=== PATIENT | male | born 1930 | race Caucasian/White ===

== ENCOUNTER → 2016-10-26 | Outpatient (CLI) | payer MEDICARE, OTHER ==
[~2016-10-26] MED LIST: AMPI500C9 PO; ASP325T PO; ASPI-586 PO; ASPI-999 PO; CARV12.5 PO; CARV3.122 PO; CARV6.252 PO; CEFU500T PO; CIPR-225 PO; CPR500T PO; DOXY100C42 PO; DOXY100T2 PO; ENAL5TAB PO; ENLP2.5T PO; ENLP5T PO; FINA5TAB6 PO; FNST5T PO; FURO80TA3 PO; IPRA3AMP INH; POTA10CA43 PO; POTA10TA14 PO; POTA10TA6 PO; PRED10TA22 PO; SILV400C23 TP; SILVER ALGINATE TP; TAMS0.4C2 PO; TOLTA4 PO
--- OUTSIDE RECORDS SUMMARY | 2016-10-26 16:50 | XMS REPORT | Continuity of Care Document ---
Author Author [facility] Organization [facility] Address Unknown Phone Unavailable Care Team Providers Care Cushion Padder Name Role Phone PCP Unavailable Source Comments Some departments are not documenting in the electronic medical record. If you do not see the information that you expected, contact Release of Information in the Health Information Management department at [phone] for further assistance in locating additional records.[facility] Active Allergies and Adverse Reactions Not on [...]
[2016-10-26 17:02] LABS: BASOPHILS % (AUTO) 0 % (0-10); EOSINOPHILS # (AUTO) 0.1 10^3/uL (0.0-0.3); EOSINOPHILS % (AUTO) 1 % (0-10); LYMPHOCYTES % (AUTO) 25 % (12-44); MEAN CORPUSCULAR HEMOGLOBIN 31 PG (25-34); MEAN CORPUSCULAR HGB CONC 32 G/DL (32-36); MEAN CORPUSCULAR VOLUME 97 FL (80-99); MEAN PLATELET VOLUME 9.5 FL (7.4-10.4); MONOCYTES # (AUTO) 0.7 X 10^3 (0.0-1.0); MONOCYTES % (AUTO) 8 % (0-12); NEUTROPHILS # (AUTO) 5.3 X 10^3 (1.8-7.8); NEUTROPHILS % (AUTO) 65 % (42-75); PLATELET COUNT 213 10^3/uL (130-400); RED BLOOD COUNT 4.05 10^6/uL (4.35-5.85); WHITE BLOOD COUNT 8.1 10^3/uL (4.3-11.0)
[2016-10-26 17:26] LABS: ALBUMIN 3.6 G/DL (3.2-4.5); BILIRUBIN,TOTAL 0.5 MG/DL (0.1-1.0); CREATININE SERUM 1.64 MG/DL (0.60-1.30)
[2016-10-26 17:27] LABS: POTASSIUM 5.2 MMOL/L (3.6-5.0)
== END ==
LOC: LAB 16:46
PROVIDERS: ATTEND Surgery
DX: I70.203 Unspecified atherosclerosis of native arteries of extremities, bilateral legs (principal); L97.222 Non-pressure chronic ulcer of left calf with fat layer exposed
CPT/HCPCS: 36415; 80053; 85025; 87070; 87075; 87077; 87186; 87205

== ENCOUNTER 2016-11-09 12:58 | Outpatient (RCR) | payer MEDICARE, OTHER ==
--- OUTSIDE RECORDS SUMMARY | 2016-10-26 14:29 | XMS REPORT | Continuity of Care Document ---
Author Author [facility] Organization [facility] Address Unknown Phone Unavailable Care Team Providers Care Edger Hand Name Role Phone PCP Unavailable Source Comments Some departments are not documenting in the electronic medical record. If you do not see the information that you expected, contact Release of Information in the Health Information Management department at [phone] for further assistance in locating additional records.[facility] Active Allergies and Adverse Reactions Not on File Current Medications Not on file Active Problems Not on file Social History Tobacco Use Types Packs/Day Years Used Date Never Assessed Plan of Care Health Maintenance Due Date Last Done Comments Physical (Comprehensive) 1936 Exam Pertussis Vaccine 1940 Tetanus Vaccine 1946 Shingles Vaccine 1989 Prevnar/Pneumovax (#1) 1994 Influenza Vaccine 04/14/2015 Results from Last 3 Months Not on file
[~2016-11-09 12:58] MED LIST changes: -AMPI500C9 PO; -DOXY100C42 PO; -DOXY100T2 PO; -ENAL5TAB PO; -IPRA3AMP INH; -POTA10TA14 PO; -PRED10TA22 PO; -SILV400C23 TP; -SILVER ALGINATE TP; -TOLTA4 PO
[2016-11-14] MEDS ORDERED: SILV400C23 TP (13:43)
[2016-11-14] MEDS ORDERED: ASPI-586 PO (13:43)
[2016-11-14] MEDS ORDERED: TOLTA4 PO ×2 (13:43→16:29)
[2016-11-14] MEDS ORDERED: AMPI500C9 PO (13:43)
[2016-11-14] MEDS ORDERED: DOXY100T2 PO (13:43)
[2016-11-14] MEDS ORDERED: DOXY100C42 PO (16:19)
[2016-11-14] MEDS ORDERED: ENAL5TAB PO (16:19)
[2016-11-14] MEDS ORDERED: FURO80TA3 PO (16:19)
[2016-11-14] MEDS ORDERED: TAMS0.4C2 PO (16:19)
[2016-11-14] MEDS ORDERED: POTA10TA14 PO (16:19)
[2016-11-14] MEDS ORDERED: FINA5TAB6 PO (16:19)
[2016-11-14] MEDS ORDERED: SILVER ALGINATE TP (16:29)
[2016-11-23] MEDS ORDERED: PRED10TA22 PO (11:11)
[2016-11-23] MEDS ORDERED: IPRA3AMP INH (11:11)
== END 2016-12-01 16:00 | disposition home or self-care (01) ==
LOC: WOUNDCARE 12:58
PROVIDERS: ATTEND Surgery
DX: L97.222 Non-pressure chronic ulcer of left calf with fat layer exposed (principal); I87.312 Chronic venous hypertension (idiopathic) with ulcer of left lower extremity; I87.321 Chronic venous hypertension (idiopathic) with inflammation of right lower extremity; I89.0 Lymphedema, not elsewhere classified; I70.203 Unspecified atherosclerosis of native arteries of extremities, bilateral legs
CPT/HCPCS: 11042

== ENCOUNTER 2016-11-14 12:43 | Inpatient (IN) | payer MEDICARE, OTHER ==
[~2016-11-14] VITALS: Ht 167.6 cm; Wt 118.5 kg
[2016-11-14] MEDS ORDERED: RT-ALBUTEROL/IPRATROPIUM 3 ML (DUONEB) VIAL INH ONE (13:30)
[2016-11-14 13:38] LABS: BASOPHILS % (AUTO) 0 % (0-10); EOSINOPHILS % (AUTO) 0 % (0-10); LYMPHOCYTES # (AUTO) 1.2 X 10^3 (1.0-4.0); LYMPHOCYTES % (AUTO) 13 % (12-44); MEAN CORPUSCULAR HEMOGLOBIN 30 PG (25-34); MEAN CORPUSCULAR HGB CONC 31 G/DL (32-36); MEAN CORPUSCULAR VOLUME 95 FL (80-99); MEAN PLATELET VOLUME 11.1 FL (7.4-10.4); MONOCYTES # (AUTO) 0.8 X 10^3 (0.0-1.0); MONOCYTES % (AUTO) 8 % (0-12); NEUTROPHILS # (AUTO) 7.2 X 10^3 (1.8-7.8); NEUTROPHILS % (AUTO) 78 % (42-75); PLATELET COUNT 167 10^3/uL (130-400); RED BLOOD COUNT 4.56 10^6/uL (4.35-5.85); RED CELL DISTRIBUTION WIDTH 16.7 % (10.0-14.5); WHITE BLOOD COUNT 9.2 10^3/uL (4.3-11.0)
--- NOTE | 2016-11-14 13:38 | ED Cough/URI ---
General Chief Complaint: Respiratory Problems Stated Complaint: CONGESTION//SHORTNESS OF BREATH Source: patient, family Exam Limitations: no limitations History of Present Illness Time seen by provider: 13:32 Initial Comments This 86-year-old white male presents with a two-week history of progressive cough. The patient has been treating a chronic wound to the left leg between the knee and ankle and has been to the wound care clinic for his medications. Approximately 10 days ago the patient was seen at [facility] and asked to continue with the doxycycline which was being used to treat his leg wound. The patient had a brief fever at the start of his illness but has not had a fever noted in the last week. 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 Patient had a C2 fracture years ago requiring him to sleep in an upright position leading to chronic edema of his lower extremities. Allergies and Home Medications Allergies Coded Allergies: No Known Drug Allergies (Unverified , 04/24/10) Home Medications Ampicillin Trihydrate 500 Mg Capsule, 500 MG PO DAILY, (Reported) Aspirin 81 Mg Tablet.dr, 81 MG PO DAILY, (Reported) Ciprofloxacin HCl 500 Mg Tablet, 500 MG PO BID, #10 Prescribed by: GUY HOWARD on 05/06/16 0951 Doxycycline Hyclate 100 Mg Tablet, 100 MG PO BID, (Reported) Enalapril Maleate 5 Mg Tab, 5 MG PO DAILY, (Reported) Furosemide 80 Mg Tablet, 80 MG PO DAILY, (Reported) Potassium Chloride 10 Meq Tablet.er, 10 MEQ PO DAILY, (Reported) Silver Sulfadiazine 400 Gm Cream..g., 400 GM TP, (Reported) Tolterodine Tartrate 4 Mg Cap, 4 MG PO DAILY, (Reported) Constitutional: No chills, fever (2 weeks ago at the onset of his present illness.) EENTM: No ear pain Respiratory: cough, short of breath Cardiovascular: No chest pain, edema, No palpitations, No syncope Gastrointestinal: No abdominal pain, No diarrhea, No nausea, No vomiting Genitourinary: No decreased output, No dysuria, No frequency Musculoskeletal: No back pain, No joint swelling Skin: No change in color, No rash Psychiatric/Neurological: No Symptoms Reported, Denies Anxiety, Denies Depressed Immunological/Allergic: no symptoms reported Past Kqxhtxx-Gshuoi-Eccywf Hx Patient Social History Former Smoker/When Quit: Mar 31, 1987 Recent Foreign Travel: No Contact w/Someone Who Travel: No Recent Hopitalizations: Yes (broken neck in 2005) Immunizations Up To Date Date of Pneumonia Vaccine: Mar 14, 2015 Surgeries HX Surgeries: Yes (NECK SURGERY, HERNIA SX, ) Surgeries: Orthopedic Respiratory Hx Respiratory Disorders: No Cardiovascular Hx Cardiac Disorders: Yes ([employer] pacemaker) Cardiac Disorders: Chronic Edema/Swelling, Hypertension, Peripheral Vascular Neurological Hx Neurological Disorders: No Reproductive System Hx Reproductive Disorders: No Genitourinary Hx Genitourinary Disorders: No Genitourinary Disorders: Benign Prostatic Hyperpl, Prostate Problems Gastrointestinal Hx Gastrointestinal Disorders: No Musculoskeletal Hx Musculoskeletal Disorders: Yes (broken neck and broken wrist) Musculoskeletal Disorders: Fractures Endocrine Hx Endocrine Disorders: No HEENT HX ENT Disorders: Yes HEENT Disorders: Cataract Hearing Impairment: Hard of Hearing Cancer Hx Cancer: No Psychosocial Hx Psychiatric Problems: No Integumentary HX Skin/Integumentary Disorder: No (HX OF CELLULITIS) Blood Transfusions Hx Blood Disorders: No Reviewed Nursing Assessment Reviewed/Agree w Nursing PMH: Yes Family Medical History Family Medial History: Arthritis 19 MOTHER Colon cancer G8 BROTHER G8 SISTER Myocardial infarction G8 BROTHER Physical Exam Vital Signs Vital Sign - Last 12Hours 11/14/16 13:30 Temp 97.7 Pulse 81 Resp 20 B/P (MAP) 125/105 Pulse Ox 97 O2 Delivery OxyMask O2 Flow Rate 5.00 Capillary Refill : General Appearance: no apparent distress, obese Eyes: Bilateral Eye Normal Inspection HEENT: normal ENT inspection Neck: other (patient demonstrates a stiff neck with limited range of motion which the patient's son relates this is normal.) Respiratory: decreased breath sounds Cardiovascular: regular rate, rhythm Gastrointestinal: normal bowel sounds, non tender, soft Extremities: pedal edema (3+ bilateral pedal edema is present. There are 2 open wounds over the left leg at the juncture of the middle and distal thirds of the leg between the knee and ankle. These are each approximately 2 inches in diameter the wound is clean without significant purulent drainage and extends into the subcutaneous tissue but not into the ER muscles.) Neurologic/Psychiatric: alert, normal mood/affect, motor weakness (patient has bilateral lower extremity weakness. No paralysis.) Skin: other (wounds left leg as noted above) Focused Exam Lactic Acid Level Laboratory Tests Test 11/14/16 13:21 Lactic Acid Level 1.19 MMOL/L (0.50-2.00) Progress/Results/Core Measures Results/Orders Lab Results Laboratory Tests Test 11/14/16 13:21 11/14/16 13:31 Range/Units White Blood Count 9.2 4.3-11.0 10^3/uL Red Blood Count 4.56 4.35-5.85 10^6/uL Hemoglobin 13.6 13.3-17.7 G/DL Hematocrit 44 40-54 % Mean Corpuscular Volume 95 80-99 FL Mean Corpuscular Hemoglobin 30 25-34 PG Mean Corpuscular Hemoglobin Concent 31 L 32-36 G/DL Red Cell Distribution Width 16.7 H 10.0-14.5 % Platelet Count 167 130-400 10^3/uL Mean Platelet Volume 11.1 H 7.4-10.4 FL Neutrophils (%) (Auto) 78 H 42-75 % Lymphocytes (%) (Auto) 13 12-44 % Monocytes (%) (Auto) 8 0-12 % Eosinophils (%) (Auto) 0 0-10 % Basophils (%) (Auto) 0 0-10 % Neutrophils # (Auto) 7.2 1.8-7.8 X 10^3 Lymphocytes # (Auto) 1.2 1.0-4.0 X 10^3 Monocytes # (Auto) 0.8 0.0-1.0 X 10^3 Eosinophils # (Auto) 0.0 0.0-0.3 10^3/uL Basophils # (Auto) 0.0 0.0-0.1 10^3/uL Lactic Acid Level 1.19 0.50-2.00 MMOL/L B-Type Natriuretic Peptide 1483.7 H <100.0 PG/ML Sodium Level 147 H 135-145 MMOL/L Potassium Level 3.7 3.6-5.0 MMOL/L Chloride Level 105 98-107 MMOL/L Carbon Dioxide Level 33 H 21-32 MMOL/L Anion Gap 9 5-14 MMOL/L Blood Urea Nitrogen 28 H 7-18 MG/DL Creatinine 1.51 H 0.60-1.30 MG/DL Estimat Glomerular Filtration Rate 44 BUN/Creatinine Ratio 19 Glucose Level 126 H 70-105 MG/DL Calcium Level 8.3 L 8.5-10.1 MG/DL Total Bilirubin 1.0 0.1-1.0 MG/DL Aspartate Amino Transf (AST/SGOT) 26 5-34 U/L Alanine Aminotransferase (ALT/SGPT) 19 0-55 U/L Alkaline Phosphatase 79 40-136 U/L Troponin I < 0.30 <0.30 NG/ML Total Protein 6.5 6.4-8.2 G/DL Albumin 3.5 3.2-4.5 G/DL My Orders Orders - PRASHANTH HENRY MD Albuterol/Ipra Inhalation Soln (Duoneb I (11/14/16 13:30) Svn Sm Volume Nebulizer Rt-Rfs (11/14/16 13:28) Chest Pa/Lat (2 View) (11/14/16 13:31) Cbc With Automated Diff (11/14/16 13:31) Comprehensive Metabolic Panel (11/14/16 13:31) BNP (11/14/16 13:31) Ekg Tracing (11/14/16 13:31) Troponin I (11/14/16 13:31) Sputum Culture (11/14/16 14:50) Furosemide Injection (Lasix Injection) (11/14/16 15:00) Blood Culture (11/14/16 15:13) Lactic Acid Analyzer (11/14/16 15:13) Piperacillin Sodium/Tazobactam (Zosyn Vi (11/14/16 15:30) Medications Given in ED Current Medications Medications Dose Ordered Sig/Vibha Route Start Time Stop Time Status Last Admin Dose Admin Albuterol/ Ipratropium 3 ml ONCE ONCE INH 11/14/16 13:30 11/14/16 13:31 DC 11/14/16 13:41 3 ML Furosemide 40 mg ONCE ONCE IVP 11/14/16 15:00 11/14/16 15:01 DC 11/14/16 15:25 40 MG Piperacillin Sod/ Tazobactam Sod 4.5 gm/Sodium Chloride 100 ml @ 200 mls/hr ONCE ONCE IV 11/14/16 15:30 11/14/16 15:59 11/14/16 15:41 200 MLS/HR Vital Signs/I&O Vital Sign - Last 12Hours 11/14/16 11/14/16 13:30 13:41 Temp 97.7 Pulse 81 Resp 20 B/P (MAP) 125/105 Pulse Ox 97 95 O2 Delivery OxyMask O2 Flow Rate 5.00 6.00 Progress Note : Time: 15:11 Progress Note The patient's chest x-ray demonstrated congestive heart failure. I did not see a definite infiltrate on the radiograph. Dr. Stuart was kind enough to admit the patient through her prescribed. I move the patient's been receiving doxycycline and amoxicillin for both the wound to the left leg as well as a possible pneumonia that was diagnosed at [facility] week or so ago. After telephone consultation with Dr. Stuart the patient was treated with 4.5 g of Zosyn IV and 40 mg Lasix IV. Cardiology and pulmonology were both consulted. Departure Communication Time/Spoke to Admitting Phy: 16:[address] Stuart. Impression Impression: Primary Impression: CHF (congestive heart failure) Qualified Codes: I50.9 - Heart failure, unspecified Additional Impression: Pneumonia Qualified Codes: J18.9 - Pneumonia, unspecified organism Disposition: ADMITTED INPATIENT Condition: Improved Departure-Patient Inst. Referrals: INDU MAK MD (PCP/Family) Primary Care Physician PRASHANTH HENRY MD Nov 14, 2016 13:37
[2016-11-14] MEDS ORDERED: AMPI500C9 PO (13:43)
[2016-11-14] MEDS ORDERED: TOLTA4 PO ×2 (13:43→16:29)
[2016-11-14] MEDS ORDERED: DOXY100T2 PO (13:43)
[2016-11-14] MEDS ORDERED: ASPI-586 PO (13:43)
[2016-11-14] MEDS ORDERED: SILV400C23 TP (13:43)
[2016-11-14 13:51] LABS: ALANINE AMINOTRANSFERASE 19 U/L (0-55); ALBUMIN 3.5 G/DL (3.2-4.5); ANION GAP 9 MMOL/L (5-14); ASPARTATE AMINO TRANSFERASE 26 U/L (5-34); BLOOD UREA NITROGEN 28 MG/DL (7-18); BUN/CREATININE RATIO 19; CALCIUM 8.3 MG/DL (8.5-10.1); CARBON DIOXIDE 33 MMOL/L (21-32); CHLORIDE 105 MMOL/L (98-107); CREATININE SERUM 1.51 MG/DL (0.60-1.30); GFR ESTIMATED 44; GLUCOSE 126 MG/DL (70-105); POTASSIUM 3.7 MMOL/L (3.6-5.0); SODIUM 147 MMOL/L (135-145); TOTAL PROTEIN 6.5 G/DL (6.4-8.2)
[2016-11-14 13:57] LABS: TROPONIN I < 0.30 NG/ML (<0.30)
--- NOTE | 2016-11-14 14:45 | Diagnostic Imaging Report ---
INDICATION: Cough, congestion, shortness of air. Compared 08/11/2016. FINDINGS: Pacemaker device overlies the left chest. The heart enlarged but unchanged from prior. There are perihilar infiltrates and some vascular congestion having improved. Elevation of the left hemidiaphragm unchanged. IMPRESSION: Slight improvements when compared to the prior in terms of cardiomegaly, vascular congestion, and likely perihilar edema. Elevated left diaphragm chronic. Findings suggest recurrence of features of failure or hypervolemia but of less magnitude than prior. Dictated by: Dictated on workstation # [id number]
[2016-11-14] MEDS ORDERED: FUROSEMIDE 40 MG/4 ML INJ (LASIX) IVP ONE (15:00)
[2016-11-14] MEDS ORDERED: cefTRIAXone INJECTION 2,000 MG in NS (IVPB) 50 ML IV ONE (15:15)
[2016-11-14] MEDS ORDERED: PIPERACILLIN SODIUM/TAZOBACTAM 4.5 GM in NS (IVPB) 100 ML IV ONE (15:30)
[2016-11-14] MEDS ORDERED: FINA5TAB6 PO (16:19)
[2016-11-14] MEDS ORDERED: POTA10TA14 PO (16:19)
[2016-11-14] MEDS ORDERED: ENAL5TAB PO (16:19)
[2016-11-14] MEDS ORDERED: TAMS0.4C2 PO (16:19)
[2016-11-14] MEDS ORDERED: DOXY100C42 PO (16:19)
[2016-11-14] MEDS ORDERED: FURO80TA3 PO (16:19)
[2016-11-14] MEDS ORDERED: SILVER ALGINATE TP (16:29)
[2016-11-14 17:29] VITALS: BP 114/71
[2016-11-14] MEDS ORDERED: CATHETER FLUSH 10 ML SYR IV PRN (17:30)
[2016-11-14 20:00] VITALS: BP 120/60
--- NOTE | 2016-11-14 20:05 | Progress Note-Standard ---
Standard Progress Note Progress Notes/Assess & Plan Progress/Assessment & Plan 11/14/16:I have been asked to see the gentleman regarding ulcers over his legs, more pronounced over his left side. Currently, he is being managed for pneumonia and congestive heart failure. On examination, he has changes of chronic venous stasis with superficial ulceration involving the left lower extremity. It is reasonable to continue current wound management and observe him. Final Diagnosis leg ulcers LEXIS JONES MD Nov 14, 2016 8:05 pm
[2016-11-14] MEDS: PIPERACILLIN/TAZOBACTAM 4.5 GM/NS 100 ML IVPB IV SCH ×2 (21:23)
[2016-11-14] MEDS: CATHETER FLUSH 10 ML SYR IV SCH (22:00)
[2016-11-14 23:46] VITALS: BP 112/65
[2016-11-15] VITALS (29 sets, daily range): BP systolic 89–119; BP diastolic 50–88
[2016-11-15 04:03] LABS: ABG BASE EXCESS 6.2 MMOL/L (-2.5-2.5); ABG HCO3 36 MMOL/L (23-27); ABG OXYGEN SATURATION 97 % (94-100); ABG PO2 112 MMHG (79-93)
[2016-11-15 04:08] LABS: ABG PCO2 123 MMHG (35-45); ABG PH 7.09 (7.37-7.43); ALLENS TEST YES-POS
[2016-11-15 04:09] LABS: PATIENT TEMP 96.9
[2016-11-15 04:19] LABS: BASOPHILS % (AUTO) 0 % (0-10); EOSINOPHILS % (AUTO) 0 % (0-10); LYMPHOCYTES # (AUTO) 1.1 X 10^3 (1.0-4.0); LYMPHOCYTES % (AUTO) 10 % (12-44); MEAN CORPUSCULAR HEMOGLOBIN 30 PG (25-34); MEAN CORPUSCULAR HGB CONC 29 G/DL (32-36); MEAN CORPUSCULAR VOLUME 103 FL (80-99); MEAN PLATELET VOLUME 10.9 FL (7.4-10.4); MONOCYTES % (AUTO) 9 % (0-12); NEUTROPHILS # (AUTO) 8.6 X 10^3 (1.8-7.8); NEUTROPHILS % (AUTO) 81 % (42-75); PLATELET COUNT 143 10^3/uL (130-400); RED BLOOD COUNT 4.64 10^6/uL (4.35-5.85); RED CELL DISTRIBUTION WIDTH 17.3 % (10.0-14.5); WHITE BLOOD COUNT 10.7 10^3/uL (4.3-11.0)
[2016-11-15 04:26] LABS: INR 1.1 (0.8-1.4); PROTHROMBIN TIME PATIENT 13.7 SEC (12.2-14.7)
[2016-11-15 04:39] LABS: ALBUMIN 3.6 G/DL (3.2-4.5); BILIRUBIN,TOTAL 0.6 MG/DL (0.1-1.0); CALCIUM 8.3 MG/DL (8.5-10.1); CREATININE SERUM 2.11 MG/DL (0.60-1.30); MAGNESIUM 2.2 MG/DL (1.8-2.4); TOTAL PROTEIN 6.9 G/DL (6.4-8.2)
[2016-11-15 05:02] LABS: ABG HCO3 34 MMOL/L (23-27); ABG PO2 66 MMHG (79-93); ABG TCO2 36.3 MMOL/L (21.0-31.0)
[2016-11-15 05:03] LABS: ABG OXYGEN SATURATION 92 % (94-100); ALLENS TEST YES-POS
[2016-11-15 05:04] LABS: ABG PCO2 84 MMHG (35-45); ABG PH 7.22 (7.37-7.43)
[2016-11-15] MEDS: PIPERACILLIN/TAZOBACTAM 4.5 GM/NS 100 ML IVPB IV SCH ×6 (05:46→22:34)
[2016-11-15] MEDS: CATHETER FLUSH 10 ML SYR IV SCH ×3 (05:46→22:53)
[2016-11-15] MEDS ORDERED: FUROSEMIDE 40 MG/4 ML INJ (LASIX) IV SCH (06:00)
--- NOTE | 2016-11-15 07:59 | Diagnostic Imaging Report ---
INDICATION: Unresponsive patient EXAMINATION: Noncontrast brain CT is performed There is no previous studies for comparison. There are diffuse atrophic changes. There are low-density changes in the deep white matter compatible with chronic ischemic change. 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 There is no acute hemorrhage or mass effect or midline shift. Calvarial windows are unremarkable. 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 No acute hemorrhage or acute intracranial finding. Dictated by: Dictated on workstation # [id number]
--- NOTE | 2016-11-15 08:24 | Diagnostic Imaging Report ---
INDICATION: Pneumonia Frontal chest obtained at 4:47 hours a.m. and compared to 11/14/16. There is cardiomegaly. There is central vascular congestion with some bibasilar infiltrate left greater than right. The left-sided infiltrate has increased compared to the prior study. There is central vascular congestion without abi edema. IMPRESSION: Cardiomegaly and central vascular congestion. Bibasilar infiltrates left greater than right with increasing left basilar infiltrate compared to the prior study. There is no pneumothorax. Dictated by: Dictated on workstation # [id number]
--- NOTE | 2016-11-15 08:27 | Pulmonary Consultation ---
History of Present Illness History of Present Illness Date of Consultation 11/15/16 08:22 Date of Admission History of Present Illness 86yo with hx of chronic wound to left leg presented to ED secondary to progressive cough. Pt has been on doxycycline as out patient. Allergies and Home Medications Allergies Coded Allergies: No Known Drug Allergies (Unverified , 11/14/16) Home Medications Ampicillin Trihydrate 500 Mg Capsule, 500 MG PO TID, (Reported) FILLED 11/01/16 #42 FOR A 14 DAY THERAPY Aspirin 81 Mg Tablet.dr, 81 MG PO DAILY, (Reported) Doxycycline Monohydrate 100 Mg Capsule, 100 MG PO BID, (Reported) FILLED 11/01/16 #28 FOR A 14 DAY THERAPY Enalapril Maleate 5 Mg Tablet, 5 MG PO DAILY, (Reported) Furosemide 80 Mg Tablet, 80 MG PO DAILY, (Reported) Potassium Chloride 10 Meq Tab.er.prt, 10 MEQ PO DAILY, (Reported) Tolterodine Tartrate 4 Mg Cap, 4 MG PO DAILY, (Reported) [Silver Alginate] , TP DAILY, (Reported) Past Fgnvdfj-Abtugv-Gubeix Hx Patient Social History Alcohol Use: Denies Use Recreational Drug Use: No Smoking Status: Former Smoker Type Used: Cigarettes Former Smoker/When Quit: Mar 31, 1987 Recent Foreign Travel: No Contact w/Someone Who Travel: No Recent Infectious Disease Expo: No Recent Hopitalizations: Yes (broken neck in 2004) Physical Abuse Screen: No Sexual Abuse: No Immunizations Up To Date Date of Pneumonia Vaccine: Mar 14, 2015 Seasonal Allergies Seasonal Allergies: No Surgeries HX Surgeries: Yes (NECK SURGERY, HERNIA SX, ) Surgeries: Orthopedic, Pacemaker Respiratory Hx Respiratory Disorders: No Respiratory Disorders: Pneumonia Cardiovascular Hx Cardiac Disorders: Yes ([employer] pacemaker) Cardiac Disorders: Chronic Edema/Swelling, Hypertension, Peripheral Vascular Neurological Hx Neurological Disorders: No Reproductive System Hx Reproductive Disorders: No Genitourinary Hx Genitourinary Disorders: No Genitourinary Disorders: Benign Prostatic Hyperpl, Prostate Problems Gastrointestinal Hx Gastrointestinal Disorders: No Musculoskeletal Hx Musculoskeletal Disorders: Yes (broken neck and broken wrist) Musculoskeletal Disorders: Fractures Endocrine Hx Endocrine Disorders: No HEENT HX ENT Disorders: Yes HEENT Disorders: Cataract Hearing Impairment: Hard of Hearing Cancer Hx Cancer: No Psychosocial Hx Psychiatric Problems: No Integumentary HX Skin/Integumentary Disorder: No (HX OF CELLULITIS) Skin/Integumentary Disorders: Recent Skin Changes Blood Transfusions Hx Blood Disorders: No Reviewed Nursing Assessment Reviewed/Agree w Nursing PMH: Yes Family Medical History Family Medial History: Arthritis 19 MOTHER Colon cancer G8 BROTHER G8 SISTER Myocardial infarction G8 BROTHER Exam Exam Vital Signs Date Time Temp Pulse Resp B/P (MAP) Pulse Ox O2 Delivery O2 Flow Rate FiO2 11/15/16 06:00 80 17 107/63 96 NIV/Bilevel 30.00 11/15/16 05:15 110 36 91 30.00 11/15/16 05:00 90 17 104/88 88 NIV/Bilevel 30.00 11/15/16 04:46 97.1 80 20 119/65 97 NIV/Bilevel 30.00 11/14/16 23:46 96.3 86 24 112/65 98 OxyMask 4.00 11/14/16 21:00 4.00 11/14/16 20:00 97.1 81 20 120/60 97 OxyMask 4.00 11/14/16 18:29 94 4.00 11/14/16 17:29 96.1 85 18 114/71 94 OxyMask 4.00 11/14/16 16:00 97.7 80 20 93 4.00 11/14/16 13:41 95 6.00 11/14/16 13:30 97.7 81 20 125/105 97 OxyMask 5.00 I & O 11/15/16 07:00 Intake Total 100 ml Output Total 0 ml Balance 100 ml Capillary Refill: Less Than 3 Seconds Gastrointestinal: normal bowel sounds, non tender, soft Results Lab Laboratory Tests 11/14/16 13:21 11/14/16 13:31 11/15/16 04:05 Assessment/Plan Assessment/Plan -Acute respiratory failure -requiring BiPAP -family is ok for short term ventilation only -Repeat ABG in 2hrs Morbid obesity Clinical Quality Measures DVT/VTE Risk/Contraindication: Risk Factor Score Per Nursin RFS Level Per Nursing on Admit: 4+=Very High BRAXTON SILVA DO Nov 15, 2016 08:27
--- NOTE | 2016-11-15 11:10 | Consultation-Cardiology ---
HPI-Cardiology Cardiology Consultation: Date of Consultation 11/15/16 Date of Admission 11-14-16 Attending Physician Latoya Stuart DO Admitting Physician José Manuel Tatum MD Consulting Physician Starr Martinez MD HPI: Chief Complaint: CHF Respiratory failure Mr. Mercedes is an 86 year old male admitted to 4th floor on 11-14-16 with increasing shortness of breath and cough over the course of the last 2 weeks. He is currently lethargic and on continuous Bi-pap. His son is at the bedside. He reports that his father was becoming increasingly confused during the day yesterday. He states they were having difficulty giving him his medications. His son states he was called by the nursing staff around 3:00 this morning d/t patient becoming unresponsive. Chart review shows patient was found unresponsive by nursing staff. He was transferred to ICU 8 and bi-pap was initiated. Son reports no previous c/o chest pain. He has chronic bilat LE cellulitis for which he has been following with wound care. Son reports he feels he has improved since bi-pap was started. Review of Systems-Cardiology Review of Systems Constitutional: As described under HPI Respiratory: As described under HPI Cardiovascular: As described under HPI Skin: other (Cellulitis bilat LE) Psychiatric/Neurological: As described under HPI Hematologic: No bleeding abnormalities Other comments ROS to the extent that it could be obtained via discussion with son and chart review is as per documentation above [id number]-Jrnjis Hx Patient Social History Alcohol Use: Denies Use Recreational Drug Use: No Smoking Status: Former Smoker Former smoker/When Quit: Mar 31, 1987 Type Used: Cigarettes Recent Foreign Travel: No Recent Infectious Disease Expo: No Hospitalization with Isolation: Denies Physical Abuse Screen: No Sexual Abuse: No Immunizations Up To Date Date of Pneumonia Vaccine: Mar 14, 2015 Past Medical History PMH As described under Assessment. Family Medical History Family History: 19 MOTHER Arthritis G8 BROTHER Colon cancer Myocardial infarction G8 SISTER Colon cancer Allergies and Home Medications Allergies Coded Allergies: No Known Drug Allergies (Unverified , 11/14/16) Home Medications Ampicillin Trihydrate 500 Mg Capsule, 500 MG PO TID, (Reported) FILLED 11/01/16 #42 FOR A 14 DAY THERAPY Aspirin 81 Mg Tablet.dr, 81 MG PO DAILY, (Reported) Doxycycline Monohydrate 100 Mg Capsule, 100 MG PO BID, (Reported) FILLED 11/01/16 #28 FOR A 14 DAY THERAPY Enalapril Maleate 5 Mg Tablet, 5 MG PO DAILY, (Reported) Furosemide 80 Mg Tablet, 80 MG PO DAILY, (Reported) Potassium Chloride 10 Meq Tab.er.prt, 10 MEQ PO DAILY, (Reported) Tolterodine Tartrate 4 Mg Cap, 4 MG PO DAILY, (Reported) [Silver Alginate] , TP DAILY, (Reported) Physical Exam-Cardiology Physical Exam Vital Signs/I&O Vital Sign - Last 12Hours 11/15/16 11/15/16 11/15/16 11/15/16 04:46 05:00 05:15 06:00 Temp 97.1 Pulse 80 90 110 80 Resp 20 17 36 17 B/P (MAP) 119/65 104/88 107/63 Pulse Ox 97 88 91 96 O2 Delivery NIV/Bilevel NIV/Bilevel NIV/Bilevel O2 Flow Rate 30.00 30.00 30.00 30.00 11/15/16 11/15/16 11/15/16 11/15/16 06:59 07:00 07:00 08:00 Pulse 80 80 80 79 Resp 18 17 13 B/P (MAP) 109/64 108/66 Pulse Ox 97 99 O2 Delivery NIV/Bilevel NIV/Bilevel O2 Flow Rate 30.00 30.00 30.00 11/15/16 11/15/16 11/15/16 11/15/16 08:30 09:00 10:00 11:00 Pulse 80 80 80 80 Resp 19 5 18 27 B/P (MAP) 113/65 116/68 118/64 Pulse Ox 100 100 100 O2 Delivery NIV/Bilevel NIV/Bilevel NIV/Bilevel O2 Flow Rate 25.00 30.00 30.00 30.00 Intake and Output 11/15/16 00:00 Intake Total 100 ml Balance 100 ml Capillary Refill : Less Than 3 SecondsLess Than 3 Seconds Constitutional: other (Lethargic; opens eyes to verbal and tactile stimuli) HEENT: PERRL Neck: carotid pulses are 2 + bilaterally Respiratory: other (diminished lower lobes bilat) Cardiovascular: regular rate-rhythm, JVD, S1 and S2, systolic murmur Gastrointestinal: soft, round, audible bowel sounds Extremities: other (marked reddish brown discoloration of the legs and mod bilateral leg swelling and areas of abrasion/excoriation), No clubbing, significant edema Neurologic/Psychiatric: other (moves extremities) Skin: other (dry, flaking skin with discoloration to bilat LE of a ruddish appearance; small open wounds with serous drainage) Data Review Labs Laboratory Tests 11/14/16 13:21: White Blood Count 9.2, Red Blood Count 4.56, Hemoglobin 13.6, Hematocrit 44, Mean Corpuscular Volume 95, Mean Corpuscular Hemoglobin 30, Mean Corpuscular Hemoglobin Concent 31L, Red Cell Distribution Width 16.7H, Platelet Count 167, Mean Platelet Volume 11.1H, Neutrophils (%) (Auto) 78H, Lymphocytes (%) (Auto) 13, Monocytes (%) (Auto) 8, Eosinophils (%) (Auto) 0, Basophils (%) (Auto) 0, Neutrophils # (Auto) 7.2, Lymphocytes # (Auto) 1.2, Monocytes # (Auto) 0.8, Eosinophils # (Auto) 0.0, Basophils # (Auto) 0.0, Lactic Acid Level 1.19, B- Type Natriuretic Peptide 1483.7H 11/14/16 13:31: Sodium Level 147H, Potassium Level 3.7, Chloride Level 105, Carbon Dioxide Level 33H, Anion Gap 9, Blood Urea Nitrogen 28H, Creatinine 1.51H, Estimat Glomerular Filtration Rate 44, BUN/Creatinine Ratio 19, Glucose Level 126H, Calcium Level 8.3L, Total Bilirubin 1.0, Aspartate Amino Transf (AST/SGOT) 26, Alanine Aminotransferase (ALT/SGPT) 19, Alkaline Phosphatase 79, Troponin I < 0.30, Total Protein 6.5, Albumin 3.5 11/15/16 03:55: Blood Gas Puncture Site L RAD, Blood Gas Patient Temperature 96.9, Arterial Blood pH 7.09*L, Arterial Blood Partial Pressure CO2 123*H, Arterial Blood Partial Pressure O2 112H, Arterial Blood HCO3 36H, Arterial Blood Total CO2 40.0H, Arterial Blood Oxygen Saturation 97, Arterial Blood Base Excess 6.2H, Alex Test YES-POS, Blood Gas Ventilator Setting NO, Blood Gas Inspired Oxygen 100%NRB 11/15/16 04:05: White Blood Count 10.7, Red Blood Count 4.64, Hemoglobin 14.1, Hematocrit 48, Mean Corpuscular Volume 103H, Mean Corpuscular Hemoglobin 30, Mean Corpuscular Hemoglobin Concent 29L, Red Cell Distribution Width 17.3H, Platelet Count 143, Mean Platelet Volume 10.9H, Neutrophils (%) (Auto) 81H, Lymphocytes (%) (Auto) 10L, Monocytes (%) (Auto) 9, Eosinophils (%) (Auto) 0, Basophils (%) (Auto) 0, Neutrophils # (Auto) 8.6H, Lymphocytes # (Auto) 1.1, Monocytes # (Auto) 1.0, Eosinophils # (Auto) 0.0, Basophils # (Auto) 0.0, Lactic Acid Level 0.85, B- Type Natriuretic Peptide 1615.2H, Sodium Level 146H, Potassium Level 5.0, Chloride Level 101, Carbon Dioxide Level 34H, Anion Gap 11, Blood Urea Nitrogen 29H, Creatinine 2.11H, Estimat Glomerular Filtration Rate 30, BUN/Creatinine Ratio 14, Glucose Level 119H, Calcium Level 8.3L, Total Bilirubin 0.6, Aspartate Amino Transf (AST/SGOT) 25, Alanine Aminotransferase (ALT/SGPT) 20, Alkaline Phosphatase 75, Total Protein 6.9, Albumin 3.6, Prothrombin Time 13.7, INR Comment 1.1, Magnesium Level 2.2, Ammonia 37H 11/15/16 04:55: Blood Gas Puncture Site R RAD, Blood Gas Patient Temperature 97.0, Arterial Blood pH 7.22*L, Arterial Blood Partial Pressure CO2 84*H, Arterial Blood Partial Pressure O2 66L, Arterial Blood HCO3 34H, Arterial Blood Total CO2 36.3H , Arterial Blood Oxygen Saturation 92L, Arterial Blood Base Excess 6.0H, Alex Test YES-POS, Blood Gas Ventilator Setting NO, Blood Gas Inspired Oxygen 30% BIPAP 11/15/16 11:10: Blood Gas Puncture Site L RADIAL, Blood Gas Patient Temperature 98.5, Arterial Blood pH 7.35L, Arterial Blood Partial Pressure CO2 65H, Arterial Blood Partial Pressure O2 56L, Arterial Blood HCO3 35H, Arterial Blood Total CO2 37.0H, Arterial Blood Oxygen Saturation 87L, Arterial Blood Base Excess 9.3H, Alex Test YES-POS, Blood Gas Ventilator Setting NO, Blood Gas Inspired Oxygen 25% 11/15/16 11:38: Glucometer 66L Microbiology 11/14/16 Gram Stain - Final, Resulted 11/14/16 Sputum Culture - Preliminary, Resulted Probable Klebsiella/Enterobact Yeast Species 11/14/16 Gram Stain - Final, Resulted 11/14/16 Wound Culture - Preliminary, Resulted Gram Negative Vitaliy Staphylococcus Species Laboratory Tests 11/14/16 13:21 11/14/16 13:31 11/15/16 04:05 Radiology NAME: MARIO MERCEDES [facility] REC#: [id number] PT STATUS: ADM Gm : 1930 PHYSICIAN: BRAXTON SILVA DO ADMIT DATE: 11/14/16/ICU Signed Date of Exam: 11/15/16 CHEST 1 VIEW, AP/PA ONLY INDICATION: Pneumonia Frontal chest obtained at 4:47 hours a.m. and compared to 11/14/16. There is cardiomegaly. There is central vascular congestion with some bibasilar infiltrate left greater than right. The left-sided infiltrate has increased compared to the prior study. There is central vascular congestion without abi edema. IMPRESSION: Cardiomegaly and central vascular congestion. Bibasilar infiltrates left greater than right with increasing left basilar infiltrate compared to the prior study. There is no pneumothorax. Dictated by: Dictated on workstation # [id number] Dict: 11/15/16 0821 Trans: 11/15/16 0851 [facility] [id number] Interpreted by: LELA SANTOS MD Electronically signed by:LELA SANTOS MD 11/15/16 0851 ECG Impression ECG Initial ECG Rhythm: PVC (V. Paced) Initial ECG Impression: Atrial Fibrillation A/P-Cardiology Assessment/Admission Diagnosis Acute respiratory failure - currently on Bi-pap Pneumonia (?aspiration) Chronic systolic CHF - treat with diuretics as needed Echo of 11/15/16: LVEF 30%, global hypokinesis that is more marked in the posterobasal wall, mild to mod TR & MR & AI, aortic valve sclerosis with mild aortic stenosis (peak grad 20 mmHg and valve area 1.8 sq cm), PASP approx 50-55 mmHg Acute on chronic renal failure. Acute component may be due to intravascular volume depletions Sinus node dysfunction with marked bradycardia (causing WARE due to chronotropic incomptence) and documented intermittent complete heart block (ECG of 02/26/15), treated with dual chamber pacemaker implantation on 03/31/15, functioning normally on interrogation of Apr 2016 Dilated left ventricle and without evidence of ischemia or any distinct evidence of infarction. Gating could not be carried out due to multiple and frequent premature ventricular contractions. Per MPI of March 2016 Marked chronic venous insufficiency with bilateral leg swelling and stasis dematitis H/o cellulitis in of his leg which is being followed by Dr. Tatum/ Hypertension, by history Hyperlipidemia, by history Carotid art disease, by history; for which he has not wished any follow up on S/p bladder and prostate surg by Dr Serna in Mar 2016, followed by Dr Serna DNR/DNI status Discussion and Recomendations Complex management issue d/t multiple co-morbidities as listed above. Respiratory failure with pneumonia which is being managed by pulmonary/medical services. Acute on chronic systolic CHF for which we will treat with diuretics. Echocardiogram today to re-evaluate LVEF. Monitor lab closely. Wound care is per Dr. Phillips/medical services. Prognosis guarded. DNR/DNI. Further recommendations will be based on hospital course. We would like to thank the Hospitalist services for this consult. This consult is being scribed by Magaly Sepulveda APRN on behalf of Dr. Martinez after discussion regarding plan of care. Clinical Quality Measures DVT/VTE Risk/Contraindication: Risk Factor Score Per Nursin RFS Level Per Nursing on Admit: 4+=Very High Physician Assessment Physician Assessment Verbally unresponsive Seems to move all limbs On BiPAP Lungs: fair bilat air entry, diminished at the bases Cor: reg Echo: see note above A&R * As documented in our note above that I updated (including today's echo) at the time of this writing * I have also discussed his case in detail with Dr Jordan of the Medical Service * Continue to follow closely, including labs * Prognosis guarded PATRICK SEPULVEDA Nov 15, 2016 11:09 STARR MARTINEZ MD [facility] Nov 15, 2016 12:36
[2016-11-15 11:17] LABS: ABG BASE EXCESS 9.3 MMOL/L (-2.5-2.5); ABG HCO3 35 MMOL/L (23-27); ABG OXYGEN SATURATION 87 % (94-100); ABG PCO2 65 MMHG (35-45); ABG PH 7.35 (7.37-7.43); ABG PO2 56 MMHG (79-93)
[2016-11-15 11:18] LABS: ALLENS TEST YES-POS; PATIENT TEMP 98.5
--- NOTE | 2016-11-15 11:58 | History & Physical-Hospitalist ---
HPI History of Present Illness: HPI/Chief Complaint Mr. Felton was sleeping soundly on BiPAP with an O2 saturation of 100 percent breathing easily. He presented to the emergency room in respiratory distress last night with complaints of shortness of breath and fatigue. He apparently lives alone at home with a family member who is close and checks on him frequently. He had not been well for the past several weeks having been treated at the [facility] for chronic venous insufficiency and intermittent lower extremity infection. He apparently has an old C2 fracture and has to sleep upright. In addition to this he had an echo in 2014 revealing severe pulmonary hypertension with an estimated pulmonary systolic pressure of 70 mmHg. He had mild to moderate systolic dysfunction with estimated ejection fraction of 45 percent. 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 History was taken from the electronic medical record. Date Seen 11/15/16 Attending Physician Latoya Stuart Floyd R MD Referring Physician Date of Admission Nov 15, 2016 at 09:00 Home Medications & Allergies Home Medications Reviewed patient Home Medication Reconciliation Form Allergies Allergies Coded Allergies No Known Drug Allergies (Unverified11/14/16) Past Kvedmkm-Ddffvd-Mttfof Hx Patient Social History Alcohol Use: Denies Use Recreational Drug Use: No Smoking Status: Former Smoker Former smoker/When Quit: Mar 31, 1987 Type Used: Cigarettes Physical Abuse Screen: No Sexual Abuse: No Recent Foreign Travel: No Contact w/other who traveled: No Recent Hopitalizations: Yes (broken neck in 2004) Recent Infectious Disease Expo: No Immunizations Up To Date Date of Pneumonia Vaccine: Mar 14, 2015 Seasonal Allergies Seasonal Allergies: No Surgeries HX Surgeries: Yes (NECK SURGERY, HERNIA SX, ) Surgeries: Orthopedic, Pacemaker Respiratory Hx Respiratory Disorders: No Cardiovascular Hx Cardiovascular Disorders: Yes ([employer] pacemaker) Cardiac Disorders: Chronic Edema/Swelling, Hypertension, Peripheral Vascular Neurological Hx Neurological Disorders: No Reproductive System Hx Reproductive Disorders: No Genitourinary Hx Genitourinary Disorders: No Genitourinary Disorders: Benign Prostatic Hyperpl, Prostate Problems Gastrointestinal Hx Gastrointestinal Disorders: No Musculoskeletal Hx Musculoskeletal Disorders: Yes (broken neck and broken wrist) Musculoskeletal Disorders: Fractures Endocrine Hx Endocrine Disorders: No HEENT HX ENT Disorders: Yes HEENT Disorders: Cataract Hearing Impairment: Hard of Hearing Cancer Hx Cancer: No Psychosocial Hx Psychiatric Problems: No Integumentary HX Skin/Integumentary Disorder: No (HX OF CELLULITIS) Skin/Integumentary Disorders: Recent Skin Changes Blood Transfusions Hx Blood Disorders: No Reviewed Nursing Assessment Reviewed/Agree w Nursing PMH: Yes Family Medical History Family Hx: Arthritis 19 MOTHER Colon cancer G8 BROTHER G8 SISTER Myocardial infarction G8 BROTHER Review of Systems Constitutional: see HPI Physical Exam Physical Exam Vital Signs Vital Sign - Last 12Hours 11/14/16 13:30 Temp 97.7 Pulse 81 Resp 20 B/P (MAP) 125/105 Pulse Ox 97 O2 Delivery OxyMask O2 Flow Rate 5.00 Capillary Refill : Less Than 3 SecondsLess Than 3 Seconds General Appearance: Chronically ill, Obese Neck: JVD Respiratory: No Accessory Muscle Use, No Respiratory Distress, Other (Breath sounds diminished posteriorly as well as anteriorly. No wheezes rales or rhonchi are appreciated with BiPAP on.) Cardiovascular: Other (Heart sounds distant no murmur noted no S3 or S4 appreciated.) Gastrointestinal: Normal Bowel Sounds, No Organomegaly, No Pulsatile Mass, Non Tender, Soft Extremity: Other (Is erythematous blistering of the lower extremities with chronic venous insufficiency changes severe the left leg is wrapped with some reported ulcerations the right lower extremity reveals no open sores.) Neurologic/Psychiatric: Other (Sedate on BiPAP.) Comments Laboratory Tests 11/14/16 13:21: White Blood Count 9.2, Red Blood Count 4.56, Hemoglobin 13.6, Hematocrit 44, Mean Corpuscular Volume 95, Mean Corpuscular Hemoglobin 30, Mean Corpuscular Hemoglobin Concent 31L, Red Cell Distribution Width 16.7H, Platelet Count 167, Mean Platelet Volume 11.1H, Neutrophils (%) (Auto) 78H, Lymphocytes (%) (Auto) 13, Monocytes (%) (Auto) 8, Eosinophils (%) (Auto) 0, Basophils (%) (Auto) 0, Neutrophils # (Auto) 7.2, Lymphocytes # (Auto) 1.2, Monocytes # (Auto) 0.8, Eosinophils # (Auto) 0.0, Basophils # (Auto) 0.0, Lactic Acid Level 1.19, B- Type Natriuretic Peptide 1483.7H 11/14/16 13:31: Sodium Level 147H, Potassium Level 3.7, Chloride Level 105, Carbon Dioxide Level 33H, Anion Gap 9, Blood Urea Nitrogen 28H, Creatinine 1.51H, Estimat Glomerular Filtration Rate 44, BUN/Creatinine Ratio 19, Glucose Level 126H, Calcium Level 8.3L, Total Bilirubin 1.0, Aspartate Amino Transf (AST/SGOT) 26, Alanine Aminotransferase (ALT/SGPT) 19, Alkaline Phosphatase 79, Troponin I < 0.30, Total Protein 6.5, Albumin 3.5 11/15/16 03:55: Blood Gas Puncture Site L RAD, Blood Gas Patient Temperature 96.9, Arterial Blood pH 7.09*L, Arterial Blood Partial Pressure CO2 123*H, Arterial Blood Partial Pressure O2 112H, Arterial Blood HCO3 36H, Arterial Blood Total CO2 40.0H, Arterial Blood Oxygen Saturation 97, Arterial Blood Base Excess 6.2H, Alex Test YES-POS, Blood Gas Ventilator Setting NO, Blood Gas Inspired Oxygen 100%NRB 11/15/16 04:05: White Blood Count 10.7, Red Blood Count 4.64, Hemoglobin 14.1, Hematocrit 48, Mean Corpuscular Volume 103H, Mean Corpuscular Hemoglobin 30, Mean Corpuscular Hemoglobin Concent 29L, Red Cell Distribution Width 17.3H, Platelet Count 143, Mean Platelet Volume 10.9H, Neutrophils (%) (Auto) 81H, Lymphocytes (%) (Auto) 10L, Monocytes (%) (Auto) 9, Eosinophils (%) (Auto) 0, Basophils (%) (Auto) 0, Neutrophils # (Auto) 8.6H, Lymphocytes # (Auto) 1.1, Monocytes # (Auto) 1.0, Eosinophils # (Auto) 0.0, Basophils # (Auto) 0.0, Lactic Acid Level 0.85, B- Type Natriuretic Peptide 1615.2H, Sodium Level 146H, Potassium Level 5.0, Chloride Level 101, Carbon Dioxide Level 34H, Anion Gap 11, Blood Urea Nitrogen 29H, Creatinine 2.11H, Estimat Glomerular Filtration Rate 30, BUN/Creatinine Ratio 14, Glucose Level 119H, Calcium Level 8.3L, Total Bilirubin 0.6, Aspartate Amino Transf (AST/SGOT) 25, Alanine Aminotransferase (ALT/SGPT) 20, Alkaline Phosphatase 75, Total Protein 6.9, Albumin 3.6, Prothrombin Time 13.7, INR Comment 1.1, Magnesium Level 2.2, Ammonia 37H 11/15/16 04:55: Blood Gas Puncture Site R RAD, Blood Gas Patient Temperature 97.0, Arterial Blood pH 7.22*L, Arterial Blood Partial Pressure CO2 84*H, Arterial Blood Partial Pressure O2 66L, Arterial Blood HCO3 34H, Arterial Blood Total CO2 36.3H , Arterial Blood Oxygen Saturation 92L, Arterial Blood Base Excess 6.0H, Alex Test YES-POS, Blood Gas Ventilator Setting NO, Blood Gas Inspired Oxygen 30% BIPAP 11/15/16 11:10: Blood Gas Puncture Site L RADIAL, Blood Gas Patient Temperature 98.5, Arterial Blood pH 7.35L, Arterial Blood Partial Pressure CO2 65H, Arterial Blood Partial Pressure O2 56L, Arterial Blood HCO3 35H, Arterial Blood Total CO2 37.0H, Arterial Blood Oxygen Saturation 87L, Arterial Blood Base Excess 9.3H, Alex Test YES-POS, Blood Gas Ventilator Setting NO, Blood Gas Inspired Oxygen 25% 11/15/16 11:38: Glucometer 66L Microbiology 11/14/16 Gram Stain - Final, Resulted 11/14/16 Sputum Culture - Preliminary, Resulted Probable Klebsiella/Enterobact Yeast Species 11/14/16 Gram Stain - Final, Resulted 11/14/16 Wound Culture - Preliminary, Resulted Gram Negative Vitaliy Staphylococcus Species Results Results/Procedures Lab Laboratory Tests 11/14/16 13:21 11/14/16 13:31 11/15/16 04:05 Assessment/Plan Admission Diagnosis 1. Acute on chronic hypercapnic respiratory failure likely due to pneumonia prognosis poor although temporarily doing better on BiPAP. Continue antibiotics and BiPAP. 2. There is likely intravascular volume depletion with increasing creatinine level will discontinue Lasix and ignore elevated BNP likely due to this patient' s hypoxia and pulmonary hypertension. Prognosis remains poor. Clinical Quality Measures DVT/VTE Risk/Contraindication: Risk Factor Score Per Nursin RFS Level Per Nursing on Admit: 4+=Very High PRASHANTH CHAPMAN MD Nov 15, 2016 11:58
[2016-11-15] MEDS ORDERED: DEXTROSE 50% 50 ML (IMS) SYR ONE (12:12)
[2016-11-15] MEDS ORDERED: D5 NS 1000 ML IV SOLUTION 1,000 ML IV ONE (18:52)
[2016-11-15] MEDS ORDERED: D5W 1000 ML IV SOLUTION 1,000 ML IV SCH (19:30)
[2016-11-15 21:23] LABS: ABG BASE EXCESS 9.6 MMOL/L (-2.5-2.5); ABG HCO3 33 MMOL/L (23-27); ABG OXYGEN SATURATION 95 % (94-100); ABG PCO2 40 MMHG (35-45); ABG PH 7.53 (7.37-7.43); ABG PO2 66 MMHG (79-93); ABG TCO2 34.3 MMOL/L (21.0-31.0)
[2016-11-15 21:24] LABS: ALLENS TEST POSITIVE; PATIENT TEMP 98.4
[2016-11-16] VITALS (25 sets, daily range): BP systolic 96–154; BP diastolic 59–89
[2016-11-16 04:36] LABS: ALBUMIN 2.9 G/DL (3.2-4.5); BILIRUBIN,TOTAL 1.2 MG/DL (0.1-1.0); CALCIUM 7.8 MG/DL (8.5-10.1); CREATININE SERUM 1.79 MG/DL (0.60-1.30); MAGNESIUM 1.8 MG/DL (1.8-2.4); POTASSIUM 3.4 MMOL/L (3.6-5.0); TOTAL PROTEIN 5.6 G/DL (6.4-8.2)
[2016-11-16 04:40] LABS: ABG BASE EXCESS 7.4 MMOL/L (-2.5-2.5); ABG HCO3 32 MMOL/L (23-27); ABG OXYGEN SATURATION 89 % (94-100); ABG PCO2 52 MMHG (35-45); ABG PH 7.41 (7.37-7.43); ABG PO2 63 MMHG (79-93); ABG TCO2 33.5 MMOL/L (21.0-31.0); ALLENS TEST YES-POS
[2016-11-16 04:41] LABS: PATIENT TEMP 99.5
[2016-11-16] MEDS: POTASSIUM CL 10MEQ/50ML IVPB 50 ML IV SCH ×3 (05:30→07:37)
[2016-11-16] MEDS: MAGNESIUM 1 GM/100 ML IVPB 100 ML IV SCH (06:00)
[2016-11-16] MEDS: CATHETER FLUSH 10 ML SYR IV SCH ×3 (06:00→22:19)
[2016-11-16] MEDS: PIPERACILLIN/TAZOBACTAM 4.5 GM/NS 100 ML IVPB IV SCH ×6 (06:26→22:18)
--- NOTE | 2016-11-16 07:04 | Pulmonary Progress Note ---
Subjective Subjective/Events-last exam PT is doing better today currently on a simple mask Exam Exam Vital Signs Date Time Temp Pulse Resp B/P (MAP) Pulse Ox O2 Delivery O2 Flow Rate FiO2 11/16/16 06:39 93 4.00 11/16/16 06:00 79 21 145/59 96 Nasal Cannula 4.50 11/16/16 05:00 80 12 114/65 96 Nasal Cannula 4.50 11/16/16 04:29 96 4.50 11/16/16 04:00 94 NIV/Bilevel 25 11/16/16 04:00 77 14 109/67 98 NIV Bilevel 25.00 11/16/16 03:00 80 13 154/89 96 NIV Bilevel 25.00 11/16/16 02:01 78 28 94 25.00 11/16/16 02:00 80 15 154/72 95 NIV Bilevel 25.00 11/16/16 01:00 78 11/16/16 01:00 81 13 108/61 93 NIV Bilevel 25.00 11/16/16 00:00 98.9 77 11 96/70 92 NIV Bilevel 25.00 11/16/16 00:00 94 NIV/Bilevel 25 11/16/16 00:00 80 35 98 25.00 11/15/16 23:00 78 16 94/53 94 NIV Bilevel 25.00 11/15/16 22:37 100.2 11/15/16 22:36 100.2 11/15/16 22:10 80 29 93 25.00 11/15/16 22:00 80 26 98/51 93 NIV/Bilevel 30.00 11/15/16 22:00 80 20 98/51 93 NIV Bilevel 25.00 11/15/16 21:00 80 8 89/50 94 NIV/Bilevel 30.00 11/15/16 21:00 100.2 11/15/16 21:00 80 18 91/50 94 NIV Bilevel 25.00 11/15/16 20:42 79 22 94 25.00 11/15/16 20:00 100 NIV/Bilevel 25 11/15/16 20:00 80 20 93/50 92 NIV Bilevel 25.00 11/15/16 20:00 80 20 93/50 92 NIV/Bilevel 30.00 11/15/16 19:00 80 10 90/51 95 NIV/Bilevel 30.00 11/15/16 19:00 80 11/15/16 19:00 80 10 90/51 95 NIV Bilevel 25.00 11/15/16 18:56 80 23 96 25.00 11/15/16 18:00 80 10 91/50 90 NIV/Bilevel 30.00 11/15/16 17:53 99.9 11/15/16 17:29 99.9 11/15/16 17:28 99.9 11/15/16 17:00 80 9 109/57 96 NIV/Bilevel 30.00 11/15/16 16:15 80 27 96 25.00 11/15/16 16:00 79 109/59 96 NIV/Bilevel 30.00 11/15/16 16:00 100 NIV/Bilevel 25 11/15/16 15:00 80 102/58 100 NIV/Bilevel 30.00 11/15/16 14:00 80 26 104/61 100 NIV/Bilevel 30.00 11/15/16 13:58 80 22 100 25.00 11/15/16 13:00 80 11/15/16 13:00 80 23 113/62 100 NIV/Bilevel 30.00 11/15/16 12:15 80 20 100 25.00 11/15/16 12:00 100 NIV/Bilevel 30 11/15/16 12:00 99.4 11/15/16 12:00 80 20 114/63 NIV/Bilevel 30.00 11/15/16 11:00 80 27 118/64 100 NIV/Bilevel 30.00 11/15/16 10:30 80 21 100 25.00 11/15/16 10:00 80 18 116/68 100 NIV/Bilevel 30.00 11/15/16 09:00 80 5 113/65 NIV/Bilevel 30.00 11/15/16 08:30 80 19 100 25.00 11/15/16 08:00 100 NIV/Bilevel 30 11/15/16 08:00 79 13 108/66 NIV/Bilevel 30.00 11/15/16 07:00 80 17 109/64 99 NIV/Bilevel 30.00 11/15/16 07:00 80 I & O 11/16/16 07:00 Intake Total 95 ml Balance 95 ml General Appearance: Anxious, Chronically ill, Mild Distress, Obese Neck: JVD Respiratory: No Accessory Muscle Use, No Respiratory Distress, Other (Breath sounds diminished posteriorly as well as anteriorly. No wheezes rales or rhonchi are appreciated with BiPAP on.) Cardiovascular: Other (Heart sounds distant no murmur noted no S3 or S4 appreciated.) Capillary Refill: Less Than 3 Seconds Gastrointestinal: normal bowel sounds, non tender, soft Extremity: Other (Is erythematous blistering of the lower extremities with chronic venous insufficiency changes severe the left leg is wrapped with some reported ulcerations the right lower extremity reveals no open sores.) Neurologic/Psychiatric: Other (Sedate on BiPAP.) Results Lab Laboratory Tests 11/14/16 13:21 11/14/16 13:31 11/15/16 04:05 11/16/16 03:20 Assessment/Plan Assessment/Plan -Acute respiratory failure -continue noninvasive ventilation PRN - pt feels improved with it. -Pt will benefit from vent to mask as out patient -family is ok for short term ventilation only Morbid obesity Clinical Quality Measures DVT/VTE Risk/Contraindication: Risk Factor Score Per Nursin RFS Level Per Nursing on Admit: 4+=Very High BRAXTON SILVA DO Nov 16, 2016 07:04
[2016-11-16] MEDS: KCL 20 MEQ TAB (K-DUR) PO SCH (07:37)
--- NOTE | 2016-11-16 07:47 | Diagnostic Imaging Report ---
INDICATION: Followup pneumonia. COMPARISON: 11/15/2016 FINDINGS: Single frontal radiographic view of the chest was obtained and demonstrates persistent moderate cardiomegaly. Pulmonary vasculature is within normal limits. Lungs show increasing opacification of the left mid and lower lung field with complete opacification of the left hemidiaphragm. Right lung is relatively clear. No large effusion is seen on the right. No pneumothorax is identified on either side. Left-sided dual-lead pacemaker is noted. IMPRESSION: 1. Increased airspace disease in left mid and lower lung field suggestive of increasing effusion with associated atelectasis and/or infiltrate. 2. Persistent cardiomegaly. Dictated by: Dictated on workstation # [id number]
--- NOTE | 2016-11-16 08:35 | Progress Note-Hospitalist ---
Subjective HPI/CC On Admission Mr. Felton was sleeping soundly on BiPAP with an O2 saturation of 100 percent breathing easily. He presented to the emergency room in respiratory distress last night with complaints of shortness of breath and fatigue. He apparently lives alone at home with a family member who is close and checks on him frequently. He had not been well for the past several weeks having been treated at the wound care center for chronic venous insufficiency and intermittent lower extremity infection. He apparently has an old C2 fracture and has to sleep upright. In addition to this he had an echo in 2014 revealing severe pulmonary hypertension with an estimated pulmonary systolic pressure of 70 mmHg. He had mild to moderate systolic dysfunction with estimated ejection fraction of 45 percent. 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 History was taken from the electronic medical record. Date Seen 11/16/16 Subjective/Events-last exam Patient was sitting up in bed with nasal cannula on able to answer questions appropriately. He had a loose nonproductive cough. He did not appear to be in acute distress. Objective Exam Vital Signs Vital Sign - Last 12Hours 11/14/16 11/15/16 13:30 08:00 Temp 97.7 Pulse 81 Resp 20 B/P (MAP) 125/105 Pulse Ox 97 O2 Delivery OxyMask O2 Flow Rate 5.00 FiO2 30 Capillary Refill : Less Than 3 SecondsLess Than 3 Seconds General Appearance: Chronically ill, Obese Respiratory: No Accessory Muscle Use, No Respiratory Distress, Other ( Diminished breath sounds noted throughout especially in the bases no wheezing appreciated.) Cardiovascular: Regular Rate, Rhythm, No Gallop, No Murmur Extremity: Other (Severe chronic venous insufficiency changes of both lower extremities) Results/Procedures Lab Laboratory Tests 11/16/16 03:20 Assessment/Plan Assessment and Plan Assess & Plan/Chief Complaint 1. Acute on chronic respiratory failure likely due to pneumonia improving continue antibiotics 2. Chronic venous insufficiency of the lower extremities continue wound care 3. Mild systolic dysfunction with an ejection fraction of 45 percent and past history of severe pulmonary hypertension. PRASHANTH CHAPMAN MD Nov 16, 2016 08:35
--- NOTE | 2016-11-16 10:02 | Progress Note-Cardiology ---
Cardiology SOAP Progress Note Subjective: Responsive today Denies cp Reports some shortness of breath Doesn't have good recollection of events surrounding admission Objective: I&O/Vital Signs Vital Sign - Last 12Hours 11/15/16 11/15/16 11/15/16 11/15/16 22:00 22:00 22:10 22:36 Temp 100.2 Pulse 80 80 80 Resp 20 26 29 B/P (MAP) 98/51 98/51 Pulse Ox 93 93 93 O2 Delivery NIV Bilevel NIV/Bilevel O2 Flow Rate 25.00 30.00 25.00 11/15/16 11/15/16 11/16/16 11/16/16 22:37 23:00 00:00 00:00 Temp 100.2 Pulse 78 80 Resp 16 35 B/P (MAP) 94/53 Pulse Ox 94 98 94 O2 Delivery NIV Bilevel NIV/Bilevel O2 Flow Rate 25.00 25.00 FiO2 25 11/16/16 11/16/16 11/16/16 11/16/16 00:00 01:00 01:00 02:00 Temp 98.9 Pulse 77 81 78 80 Resp 11 13 15 B/P (MAP) 96/70 108/61 154/72 Pulse Ox 92 93 95 O2 Delivery NIV Bilevel NIV Bilevel NIV Bilevel O2 Flow Rate 25.00 25.00 25.00 11/16/16 11/16/16 11/16/16 11/16/16 02:01 03:00 04:00 04:00 Pulse 78 80 77 Resp 28 13 14 B/P (MAP) 154/89 109/67 Pulse Ox 94 96 98 94 O2 Delivery NIV Bilevel NIV Bilevel NIV/Bilevel O2 Flow Rate 25.00 25.00 25.00 FiO2 25 11/16/16 11/16/16 11/16/16 11/16/16 04:29 05:00 06:00 06:39 Pulse 80 79 Resp 12 21 B/P (MAP) 114/65 145/59 Pulse Ox 96 96 96 93 O2 Delivery Nasal Cannula Nasal Cannula O2 Flow Rate 4.50 4.50 4.50 4.00 11/16/16 11/16/16 11/16/16 11/16/16 07:00 07:00 08:00 08:26 Temp 98.9 Pulse 77 80 80 Resp 10 30 B/P (MAP) 128/68 139/71 Pulse Ox 96 93 94 O2 Delivery Nasal Cannula Nasal Cannula Nasal Cannula O2 Flow Rate 4.50 4.50 4.50 11/16/16 09:00 Pulse 80 Resp 21 B/P (MAP) 145/67 Pulse Ox 94 O2 Delivery Nasal Cannula O2 Flow Rate 4.50 Intake and Output 11/16/16 00:00 Intake Total 0 ml Balance 0 ml Weight (Pounds): 253 Weight (Ounces): 6.4 Weight (Calculated Kilograms): 114.367042 Constitutional: other (Lethargic; opens eyes to verbal and tactile stimuli) Respiratory: other (diminished lower lobes bilat) Cardiovascular: regular rate-rhythm, JVD, S1 and S2, systolic murmur Gastrointestional: soft, round, audible bowel sounds Extremities: other (marked reddish brown discoloration of the legs and mod bilateral leg swelling and areas of abrasion/excoriation), No clubbing, significant edema Neurologic/Psychiatric: other (moves extremities) Skin: other (dry, flaking skin with discoloration to bilat LE of a ruddish appearance; small open wounds with serous drainage) Results/Procedures: Labs Laboratory Tests 11/15/16 11:10: Blood Gas Puncture Site L RADIAL, Blood Gas Patient Temperature 98.5, Arterial Blood pH 7.35L, Arterial Blood Partial Pressure CO2 65H, Arterial Blood Partial Pressure O2 56L, Arterial Blood HCO3 35H, Arterial Blood Total CO2 37.0H, Arterial Blood Oxygen Saturation 87L, Arterial Blood Base Excess 9.3H, Alex Test YES-POS, Blood Gas Ventilator Setting NO, Blood Gas Inspired Oxygen 25% 11/15/16 11:38: Glucometer 66L 11/15/16 13:02: Glucometer 107 11/15/16 17:21: Glucometer 67L 11/15/16 21:20: Blood Gas Puncture Site LEFT RADIAL, Blood Gas Patient Temperature 98.4, Arterial Blood pH 7.53H, Arterial Blood Partial Pressure CO2 40, Arterial Blood Partial Pressure O2 66L, Arterial Blood HCO3 33H, Arterial Blood Total CO2 34.3H , Arterial Blood Oxygen Saturation 95, Arterial Blood Base Excess 9.6H, Alex Test POSITIVE, Blood Gas Ventilator Setting NO, Blood Gas Inspired Oxygen 25% BIPAP 11/16/16 00:16: Glucometer 95 11/16/16 03:20: Sodium Level 149H, Potassium Level 3.4L, Chloride Level 106, Carbon Dioxide Level 28, Anion Gap 15H, Blood Urea Nitrogen 32H, Creatinine 1.79H, Estimat Glomerular Filtration Rate 36, BUN/Creatinine Ratio 18, Glucose Level 104, Calcium Level 7.8L, Magnesium Level 1.8, Total Bilirubin 1.2H, Aspartate Amino Transf (AST/SGOT) 26, Alanine Aminotransferase (ALT/SGPT) 13, Alkaline Phosphatase 60, Total Protein 5.6L, Albumin 2.9L 11/16/16 04:34: Blood Gas Puncture Site L RAD, Blood Gas Patient Temperature 99.5, Arterial Blood pH 7.41, Arterial Blood Partial Pressure CO2 52H, Arterial Blood Partial Pressure O2 63L, Arterial Blood HCO3 32H, Arterial Blood Total CO2 33.5H, Arterial Blood Oxygen Saturation 89L, Arterial Blood Base Excess 7.4H, Alex Test YES-POS, Blood Gas Ventilator Setting NO, Blood Gas Inspired Oxygen 4.5L Microbiology 11/14/16 Blood Culture - Preliminary, Resulted No growth 11/14/16 Gram Stain - Final, Complete 11/14/16 Sputum Culture - Final, Complete Enterobacter Cloacae Presumptive June Albicans 11/14/16 Gram Stain - Final, Resulted 11/14/16 Wound Culture - Preliminary, Resulted Enterobacter Cloacae Staphylococcus Aureus Laboratory Tests 11/14/16 13:21 11/14/16 13:31 11/15/16 04:05 11/16/16 03:20 A/P: Assessment: Acute respiratory failure - currently on Bi-pap Pneumonia (?aspiration) Chronic systolic CHF - treat with diuretics as needed Echo of 11/15/16: LVEF 30%, global hypokinesis that is more marked in the posterobasal wall, mild to mod TR & MR & AI, aortic valve sclerosis with mild aortic stenosis (peak grad 20 mmHg and valve area 1.8 sq cm), PASP approx 50-55 mmHg Acute on chronic renal failure. Acute component may be due to intravascular volume depletions Sinus node dysfunction with marked bradycardia (causing WARE due to chronotropic incomptence) and documented intermittent complete heart block (ECG of 02/26/15), treated with dual chamber pacemaker implantation on 03/31/15, functioning normally on interrogation of Apr 2016 Dilated left ventricle and without evidence of ischemia or any distinct evidence of infarction. Gating could not be carried out due to multiple and frequent premature ventricular contractions. Per MPI of March 2016 Marked chronic venous insufficiency with bilateral leg swelling and stasis dematitis H/o cellulitis in of his leg which is being followed by Dr. Tatum/ Hypertension, by history Hyperlipidemia, by history Carotid art disease, by history; for which he has not wished any follow up on S/p bladder and prostate surg by Dr Serna in Mar 2016, followed by Dr Serna DNR/DNI status Plan: Complex management due to multiple comorbidities Add NICHOLE-inhib when renal function improves further Close clinical f/u Monitor labs TED LENTZ MD FACP FACC CCDS Nov 16, 2016 10:02
[2016-11-17] VITALS (22 sets, daily range): BP systolic 89–141; BP diastolic 52–104
[2016-11-17 04:29] LABS: BASOPHILS % (AUTO) 0 % (0-10); EOSINOPHILS % (AUTO) 0 % (0-10); LYMPHOCYTES # (AUTO) 1.6 X 10^3 (1.0-4.0); LYMPHOCYTES % (AUTO) 13 % (12-44); MEAN CORPUSCULAR HEMOGLOBIN 30 PG (25-34); MEAN CORPUSCULAR HGB CONC 30 G/DL (32-36); MEAN CORPUSCULAR VOLUME 99 FL (80-99); MEAN PLATELET VOLUME 10.6 FL (7.4-10.4); MONOCYTES # (AUTO) 1.1 X 10^3 (0.0-1.0); MONOCYTES % (AUTO) 10 % (0-12); NEUTROPHILS # (AUTO) 8.9 X 10^3 (1.8-7.8); NEUTROPHILS % (AUTO) 77 % (42-75); PLATELET COUNT 121 10^3/uL (130-400); RED BLOOD COUNT 4.49 10^6/uL (4.35-5.85); RED CELL DISTRIBUTION WIDTH 16.8 % (10.0-14.5); WHITE BLOOD COUNT 11.6 10^3/uL (4.3-11.0)
[2016-11-17 04:45] LABS: CALCIUM 8.2 MG/DL (8.5-10.1); CREATININE SERUM 1.57 MG/DL (0.60-1.30); PHOSPHORUS 3.6 MG/DL (2.3-4.7); POTASSIUM 3.8 MMOL/L (3.6-5.0)
[2016-11-17] MEDS: MAGNESIUM 1 GM/100 ML IVPB 100 ML IV SCH (05:40)
[2016-11-17] MEDS: KCL 20 MEQ TAB (K-DUR) PO SCH (05:40)
[2016-11-17] MEDS: POTASSIUM CL 10MEQ/50ML IVPB 50 ML IV SCH (05:40)
[2016-11-17] MEDS: CATHETER FLUSH 10 ML SYR IV SCH ×3 (06:32→21:10)
[2016-11-17] MEDS: PIPERACILLIN/TAZOBACTAM 4.5 GM/NS 100 ML IVPB IV SCH ×6 (06:32→21:10)
[2016-11-17] MEDS ORDERED: FUROSEMIDE 40 MG/4 ML INJ (LASIX) IVP ONE (06:45)
--- NOTE | 2016-11-17 06:45 | Pulmonary Progress Note ---
Subjective Subjective/Events-last exam Pt is doing better but breathing is still labored. Exam Exam Vital Signs Date Time Temp Pulse Resp B/P (MAP) Pulse Ox O2 Delivery O2 Flow Rate FiO2 11/17/16 04:00 99.3 80 11 109/60 99 Nasal Cannula 4.00 11/17/16 04:00 93 Nasal Cannula 4.00 11/17/16 03:00 80 15 108/59 100 Nasal Cannula 4.00 11/17/16 02:00 84 7 111/59 100 Nasal Cannula 4.00 11/17/16 01:00 89 11/17/16 01:00 89 35 98/85 96 Nasal Cannula 4.00 11/17/16 00:00 99.6 77 31 105/61 93 Nasal Cannula 4.00 11/17/16 00:00 93 Nasal Cannula 4.00 11/16/16 23:00 82 22 110/63 96 Nasal Cannula 4.00 11/16/16 22:00 80 15 119/66 94 Nasal Cannula 4.00 11/16/16 21:00 86 9 117/65 97 Nasal Cannula 4.00 11/16/16 20:00 96 Nasal Cannula 4.00 11/16/16 20:00 98.2 78 16 125/73 100 Nasal Cannula 4.00 11/16/16 19:00 87 11/16/16 19:00 87 28 145/75 100 Nasal Cannula 4.00 11/16/16 18:32 93 5.00 11/16/16 18:00 80 26 133/82 96 Nasal Cannula 4.50 11/16/16 17:00 80 18 111/61 94 Nasal Cannula 4.50 11/16/16 16:00 80 17 118/66 95 Nasal Cannula 4.50 11/16/16 15:20 97.5 11/16/16 15:16 93 Nasal Cannula 4.50 11/16/16 15:00 84 29 113/63 90 Nasal Cannula 4.50 11/16/16 14:00 81 14 112/65 96 Nasal Cannula 4.50 11/16/16 13:00 80 13 129/73 94 Nasal Cannula 4.50 11/16/16 13:00 80 11/16/16 12:00 78 18 127/67 94 Nasal Cannula 4.50 11/16/16 11:40 93 Nasal Cannula 4.50 11/16/16 11:38 97.1 11/16/16 11:00 80 13 106/77 93 Nasal Cannula 4.50 11/16/16 10:00 80 21 117/60 96 Nasal Cannula 4.50 11/16/16 09:00 80 21 145/67 94 Nasal Cannula 4.50 11/16/16 08:26 94 Nasal Cannula 4.50 11/16/16 08:00 98.9 80 30 139/71 93 Nasal Cannula 4.50 11/16/16 07:00 80 11/16/16 07:00 77 10 128/68 96 Nasal Cannula 4.50 11/16/16 06:39 93 4.00 I & O 11/17/16 07:00 Intake Total 846 ml Balance 846 ml General Appearance: Chronically ill, Obese Neck: JVD Respiratory: No Accessory Muscle Use, No Respiratory Distress, Other ( Diminished breath sounds noted throughout especially in the bases no wheezing appreciated.) Cardiovascular: Regular Rate, Rhythm, No Gallop, No Murmur Capillary Refill: Less Than 3 Seconds Gastrointestinal: normal bowel sounds, non tender, soft Extremity: Other (Severe chronic venous insufficiency changes of both lower extremities) Neurologic/Psychiatric: Alert, Oriented x3 Results Lab Laboratory Tests 11/16/16 03:20 11/17/16 04:10 Assessment/Plan Assessment/Plan -Acute respiratory failure -continue noninvasive ventilation PRN - pt feels improved with it. -Pt will benefit from vent to mask as out patient -family is ok for short term ventilation only PNA - present on admission - growing Enterobacter -Continue Zosyn -June - probably contamination -Will give lasix x1 Morbid obesity Debility -PT/OT -Up to chair BID Clinical Quality Measures DVT/VTE Risk/Contraindication: Risk Factor Score Per Nursin RFS Level Per Nursing on Admit: 4+=Very High BRAXTON SILVA DO Nov 17, 2016 06:45
--- NOTE | 2016-11-17 07:35 | Diagnostic Imaging Report ---
CLINICAL INDICATION: Followup pneumonia. EXAM: Portable chest x-ray upright view. COMPARISON: Portable chest x-ray upright view dated 11/16/2016. FINDINGS: There is slight decreased aeration of both midlung bruno with increased bilateral lung infiltrates and/or atelectasis. There is stable consolidation in the left lung base. A small left pleural effusion cannot be completely excluded. There is stable cardiomegaly. Pulmonary vasculature is congested and stable. The remainder of this exam shows no significant interval change compared to the prior study of comparison. IMPRESSION: 1: Interval decreased aeration of both lungs with slight increased bilateral lung infiltrates. 2: Stable consolidation, left lung base, and left pleural effusion cannot be completely excluded. Dictated by: Dictated on workstation # [id number]
--- NOTE | 2016-11-17 08:39 | Progress Note-Hospitalist ---
Subjective HPI/CC On Admission Mr. Felton was sleeping soundly on BiPAP with an O2 saturation of 100 percent breathing easily. He presented to the emergency room in respiratory distress last night with complaints of shortness of breath and fatigue. He apparently lives alone at home with a family member who is close and checks on him frequently. He had not been well for the past several weeks having been treated at the wound care center for chronic venous insufficiency and intermittent lower extremity infection. He apparently has an old C2 fracture and has to sleep upright. In addition to this he had an echo in 2014 revealing severe pulmonary hypertension with an estimated pulmonary systolic pressure of 70 mmHg. He had mild to moderate systolic dysfunction with estimated ejection fraction of 45 percent. 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 History was taken from the electronic medical record. Date Seen 11/17/16 Subjective/Events-last exam Patient finished all of his breakfast. He reports increased urinary frequency. He denies pain and denies shortness of breath at rest. He does feel short of breath with any exertion. He exhibits a loose nonproductive cough and reports he hasn't been able to bring up any sputum. Objective Exam Vital Signs Vital Sign - Last 12Hours 11/14/16 11/15/16 13:30 08:00 Temp 97.7 Pulse 81 Resp 20 B/P (MAP) 125/105 Pulse Ox 97 O2 Delivery OxyMask O2 Flow Rate 5.00 FiO2 30 Capillary Refill : Less Than 3 SecondsLess Than 3 Seconds General Appearance: Anxious, Chronically ill, Mild Distress Respiratory: No Accessory Muscle Use, Other (Expiratory wheezing noted anteriorly few breath sounds noted elsewhere) Cardiovascular: Regular Rate, Rhythm, No Murmur Extremity: Other (Brawny tibial edema noted with erythema bilaterally the left leg is wrapped.) Results/Procedures Lab Laboratory Tests 11/17/16 04:10 Assessment/Plan Assessment and Plan Assess & Plan/Chief Complaint 1. Acute on chronic respiratory failure likely due to pneumonia x-ray findings worsening but patient maintaining oxygenation status LB it marginally with no functional reserve agree with Lasix dose today. 2. Chronic venous insufficiency of the lower extremities continue wound care 3. Mild systolic dysfunction with an ejection fraction of 45 percent and past history of severe pulmonary hypertension. PRASHANTH CHAPMAN MD Nov 17, 2016 08:39
--- NOTE | 2016-11-17 08:42 | ECHOCARDIOGRAPHY REPORT ---
PROCEDURE PHYSICIAN: TED LENTZ DATE OF PROCEDURE: 11/15/2016 TWO DIMENSIONAL ECHOCARDIOGRAM REPORT ATTENDING PHYSICIAN: Dr. Stuart OTHER PHYSICIAN: Dr. Lentz, Dr. Galicia REFERRING PHYSICIAN: ORDERING PHYSICIAN: Erika Sepulveda APRN INDICATION FOR THE PROCEDURE: Acute respiratory failure. MEASUREMENTS DERIVED VALUES LV DIAMETER (LAX) NORMALS NORMALS Diastolic 5.6 (3.6-5.2) Eject. Fract. (60%+/-6%) Systolic (2.3-3.9) Diastolic Vol. % Shortening (0.22-0.42) Systolic Vol. Aortic Root 3.8 IVS THICKNESS Diastolic 1.3 (0.6-1.1) LVPW THICKNESS Diastolic 1.3 (0.6-1.1) LA DIAMETER Systolic 6 (2.1-3.7) DESCRIPTION: Two-dimensional echocardiography shows global hypokinesis. Left ventricular ejection fraction is approximately 30%. Aortic, mitral and tricuspid valve leaflets show fair to good leaflet excursion. There is no significant pericardial effusion. Doppler imaging shows mild to moderate mitral, tricuspid and aortic regurgitation. There is aortic valve sclerosis and calcification but there is no Doppler evidence of significant valvular stenosis. Pulmonary artery systolic pressure is estimated to be approximately 50 to 55 mmHg. There is no evidence of significant intracardiac shunt on this transthoracic echocardiographic study. Inferior vena cava appears to be moderately dilated. CONCLUSIONS: 1. Impairment of global left ventricular systolic function with global hypokinesis, more marked in the posterobasal castellanos and estimated left ventricular ejection fraction of approximately 30%. 2. Mild to moderate mitral, tricuspid and aortic regurgitation. 3. Aortic valve sclerosis without significant aortic stenosis (peak gradient across the aortic valve approximately 20 mmHg with a valve area of approximately 1.8 sq cm). 4. Pulmonary artery systolic pressure is estimated to be 50 to 55 mmHg. Job ID: [id number] Dictated Date: 11/16/2016 17:25:53 Seed Tester Date: 11/17/2016 08:36:16 / john
[2016-11-17] MEDS ORDERED: FUROSEMIDE 40 MG/4 ML INJ (LASIX) ONE (09:04)
--- NOTE | 2016-11-17 09:23 | Physical Therapy Evaluation ---
PT Evaluation-General Medical Diagnosis Admission Date Nov 15, 2016 at 09:00 Medical Diagnosis: pneumonia/CHF Onset Date: Nov 15, 2016 Height/Weight Height (Feet): 5 Height (Inches): 6.00 Weight (Pounds): 254 Weight (Ounces): 6.4 Precautions Precautions/Isolations: Contact Isolation, Fall Prevention Referral Physician: Frida Reason for Referral: Evaluation/Treatment Medical History Pertinent Medical History: Heart Failure, HTN, PVD, Smoking Additional Medical History C2 fracture in 2004 Current History 2 wks of persistent cough Reviewed History: Yes Social History Home: Single Level Current Living Status: Alone close family support Prior/Core FIM Prior Level of Function Functional [place]ff[place] Measure 0=Not Assessed/NA 4=Minimal Assistance 1=Total Assistance 5=Supervision or Setup 2=Maximal Assistance 6=Modified [place] 3=Moderate Assistance 7=Complete [place] Bed Mobility: 0 Transfers (B,C,W/C) (FIM): 5 Gait: 1 sleeps in recliner/lift chair PT Evaluation-Current Subjective Patient agrees to therapy. Patient is in bed at this time. Pain Numeric Pain Scale: 0-No Pain Location: No Pain Reported Pt/Family Goals return to [facility] with [facility] Objective Patient Orientation: Normal For Age Problem Solving: Fair Attachments: Oxygen, IV ROM/Strength ROM Lower Extremities bilateral LE WFL Strenght Lower Extremities bilateral LE WFL (noted atrophy bilateral gastrocsoleus) Integumentary/Posture Integumentary refer to nursing notes Bowel Incontinence: No Bladder Incontinence: No Posture slightly kyphotic Neuromuscular (Tone, Coordination, Reflexes) diminished coordination due to inactivity PLOF Sensory Vision: Wears Glasses Hearing: Impaired Sensation Right Lower Extremit: Impaired Sensation Left Lower Extremity: Impaired Transfers Functional [place]duff[place] Measure 0=Not Assessed/NA 4=Minimal Assistance 1=Total Assistance 5=Supervision or Setup 2=Maximal Assistance 6=Modified [place] 3=Moderate Assistance 7=Complete [place] Transfers (B, C, W/C) (FIM): 3 Scootin Rollin Supine to/from Sit: 3 Sit to/from Stand: 5 mod assist with bed mobility (patient sleeps in lift chair at home); SBA with transfer to W and ambulate x 15' close SBA with gait belt in place Gait Mode of Locomotion: Walk Anticipated Mode of Locomotion: Walk Gait (FIM): 1 Distance (FIM): 1=up to 49 ft Distance: 15' Gait Level of Assist: 5 Gait Persons Needed: 1 Gait Assistive Device: FWW Comments/Gait Description steady; decrease carlos Balance Sitting Static: Normal Sitting Dynamic: Normal Standing Static: Normal Standing Dynamic: Normal Treatment per son, patient ambulates short distances only in the home Assessment/Needs 86 y.o. male, will benefit from short term skilled PT to address functional mobility to ensure safe return to home at maximum LOF. Rehab Potential: Fair Post Rehab Potential-Barriers: inactivity/compliance PT Mcc Goals Mcc Goals PT Mcc Goals Time Frame: Nov 24, 2016 Transfers (B,C,W/C) (FIM): 5 Gait (FIM): 1 Gait distance (FIM): 1=up to 49 ft Distance: 25' Gait Level of Assist: 5 Gait Assistive Device: FWW PT Plan Problem List Problem List: Activity Tolerance, Functional Strength, Safety, Gait, Transfer, Bed Mobility Treatment/Plan Treatment Plan: Continue Plan of Care Treatment Plan: Bed Mobility, Education, Functional Activity Lg, Functional Strength, Gait, Safety, Therapeutic Exercise, Transfers Treatment Duration: Nov 24, 2016 # of days/week 5-6 Visits Per Week: 5-6 Pt/Family Agrees w/Plan: Yes Safety Risks/Education Patient Education: Safety Issues Teaching Recipient: Patient Teaching Methods: Demonstration, Discussion Response to Teaching: Verbalize Understanding, Return Demonstration Discharge Recommendations Therapy D/C Recommendations: Home w/ Family Support, Physical Therapy Home Care Time/GCodes Time In: 835 Time Out: 855 Total Billed Treatment Time: 20 Total Billed Treatment 1 visit EVLowC 20 min VALDEMAR ONEAL PT Nov 17, 2016 09:23
--- NOTE | 2016-11-17 13:39 | Cardiology Progress Note ---
Subjective Subjective/Events-last exam patient is sitting in a chair, still having shortness of breath, no chest pain, no palpitation Review of Systems General: No Chills, No Night Sweats, Fatigue, Malaise, No Appetite, No Other HEENT: No Head Aches, No Visual Changes, No Eye Pain, No Ear Pain, No Dysphasia , No Sinus Congestion, No Post Nasal Drip, No Sore Throat, No Other Pulmonary: Dyspnea, Cough, No Pleuritic Chest Pain, No Other Cardiovascular: Edema, No: Chest Pain, Lt Headedness, Orthopnea, Other, Palpitations, Paroxysmal Noc. Dyspnea Objective-Cardiology Exam Last Set of Vital Signs Vital Signs 11/16/16 11/17/16 11/17/16 11/17/16 11/17/16 04:00 06:00 07:00 09:21 09:33 Temp 98.1 Pulse 80 Resp 9 B/P (MAP) 114/65 Pulse Ox 94 O2 Delivery Nasal Cannula O2 Flow Rate 4.00 FiO2 25 Capillary Refill : Less Than 3 SecondsLess Than 3 Seconds I&O Intake and Output 11/17/16 00:00 Intake Total 845 ml Balance 845 ml Intake Oral 750 ml IV Total 95 ml # Voids 4 # Urine Diapers 2 # Bowel Movements 2 General: Alert, Oriented X3, Cooperative, Moderate Distress HEENT: Atraumatic, PERRLA Neck: Supple, No JVD, No Thyromegaly Lungs: Normal Air Movement, Other (bilateral rhonchi) Heart: Regular Rate, Normal S1, Normal S2, No Murmurs Abdomen: Normal Bowel Sounds, Soft, No Tenderness, No Hepatosplenomegaly, No Masses Extremities: No Clubbing, No Cyanosis, Normal Pulses, No Tenderness/Swelling, Other (+2 edema) Skin: No Rashes, No Breakdown, No Significant Lesion Neuro: Normal Tone, Sensation Intact Results Lab Laboratory Tests 11/17/16 04:10 A/P-Cardiology Admission Diagnosis Acute respiratory failure Pneumonia Congestive heart failure Hypertension Assessment/Plan Acute respiratory failure, shortness of breath, pneumonia, improving on antibiotic, still having some residual shortness of breath Pneumonia, chest x-ray showed persistent infiltrate. Managed by primary care physician. Acute on chronic left ventricular systolic dysfunction, nonischemic cardiomyopathy, received Lasix 40 mg IV today, I will continue to monitor and restart Lasix if needed. Echo of 11/15/16: LVEF 30%, global hypokinesis that is more marked in the posterobasal wall, mild to mod TR & MR & AI, aortic valve sclerosis with mild aortic stenosis (peak grad 20 mmHg and valve area 1.8 sq cm), PASP approx 50-55 mmHg Acute on chronic renal failure. 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 Gating could not be carried out due to multiple and frequent premature ventricular contractions. Per MPI of March 2016 Marked chronic venous insufficiency with bilateral leg swelling and stasis dematitis H/o cellulitis in of his leg which is being followed by Dr. 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
--- NOTE | 2016-11-17 15:43 | Occupational Therapy Eval ---
OT Evaluation-General/PLF Medical Diagnosis Admission Date Nov 15, 2016 at 09:00 Medical Diagnosis: pneumonia/CHF Onset Date: Nov 15, 2016 Therapy Diagnosis Therapy Diagnosis: Weakness Height/Weight Height (Feet): 5 Height (Inches): 6.00 Weight (Pounds): 254 Weight (Ounces): 6.4 Precautions Precautions/Isolations: Contact Isolation, Fall Prevention Safety Interventions: Bed Exit Alarm Weight Bear Status Weight Bearing Restriction: Weight Bearing/Tolerated Referral Physician: Frida Referral Reason: Activity Tolerance, Self Care, Evaluation/Treatment, Strengthening/ROM Medical History Pertinent Medical History: Heart Failure, HTN, PVD, Smoking Additional Medical History C2 fx, Pulmonary HTN, EJ fraction 45%, pacemaker Reviewed History: Yes Social History Home: Single Level Current Living Status: Alone Entry Into Home: Ramp Has family that checks on him. ADL-Prior Level of Function ADL PLOF Comments Pt. states that he was independent previous to this hospitalization. Pt. sleepy throughout eval, and difficult to keep awake. DME/Equipment: Bath Chair, Tub/Shower DME/Equipment Comments Walker [address] Self: Yes OT Current Status Subjective No pain reported. Appearance Pt. up in chair. Asleep throughout most of treatment. Mental Status/Objective Patient Orientation: Unable to Assess Current Glasses/Contacts: Yes Hearing Aids: No Dentures/Partials: Yes Hand Dominance: Right Upper Extremity ROM Demonstrates approximately 90 degrees shoulder flexion. Upper Extremity Strength 2+/5 proxially bilaterally, and 3+/5 distally bilaterally. ADL-Treatment Functional [place] Measure 0=Not Assessed/NA 4=Minimal Assistance 1=Total Assistance 5=Supervision or Setup 2=Maximal Assistance 6=Modified [place] 3=Moderate Assistance 7=Complete IndependenceIRFPAI Quality Coding Scale 6 Independent with activity with or without an assistive device 5 Patient requires set up or clean up by helper. Patient completes activity by themselves 4 Supervision or touching assist (CGA). [place] provide cues , steadying assist 3 The helper provides less than half the effort to complete the activity 2 The helper provides more than half the effort to complete the activity 1 Dependent. The helper does all the effort to complete an activity 7 Patient refused to complete or attempt activity 9 The patient did not perform the activity before the current illness or injury 88 Not attempted due to Medical conditions or safety concerns Lower Body Dressing (FIM): 2 (Pt. unable to don his own socks.) Transfers (B, C, W/C) (FIM): 3 (Sit to stand out of chair.) Other Treatments Pt. groggy. Noted that he had difficulty with water pitcher. Obtained graciela cup and built up foam handles for pt. Pt. educated on purpose of this to make eating easier. Education OT Patient Education: Correct positioning, Modified ADL techniques, Progress toward Goal/Update tx plan, Purpose of tx/functional activities, Reviewed precautions, Rehab process, Transfer techniques Teaching Recipient: Patient Teaching Methods: Demonstration, Discussion Response to Teaching: Verbalize Understanding, Return Demonstration OT Short Term Goals Short Term Goals Time Frame: Nov 24, 2016 Eating(FIM): 5 Grooming(FIM): 5 Bathing(FIM): 3 Upper Body Dressing(FIM): 4 Lower Body Dressing(FIM): 4 Toileting(FIM): 5 Transfers (B,C,W/C) (FIM): 5 Toilet/Commode Transfer(FIM): 5 Additional Short Term Goals: 1-Demonstrate ADL Tasks, 2-Verbalize Understanding , 3-ImproveStrength/Lg 1=Demonstrate adherence to instructed precautions during ADL tasks. 2=Patient will verbalize/demonstrate understanding of assistive devices/ modifications for ADL. 3=Patient will improve strength/tolerance for activity to enable patient to perform ADL's. OT Assisted Goals Coat Joiner Lockstitch Goals Time Frame: Dec 01, 2016 Eating (FIM): 6 Grooming(FIM): 6 Bathing(FIM): 5 Upper Body Dressing(FIM): 6 Lower Body Dressing(FIM): 6 Toileting(FIM): 6 Transfers (B,C,W/C) (FIM): 6 Toilet/Commode Transfer(FIM): 6 Shower Transfer(FIM): 5 Additional Goals: 1-Demonstrate ADL Tasks, 2-Verbalize Understanding, 3- ImproveStrength/Lg 1=Demonstrate adherence to instructed precautions during ADL tasks. 2=Patient will verbalize/demonstrate understanding of assistive devices/ modifications for ADL. 3=Patient will improve strength/tolerance for activity to enable patient to perform ADL's. OT Education/Plan Problem List/Assessment Assessment: Decreased Activ Tolerance, Decreased UE Strength, Dependent Transfers, Impaired Bed Mobility, Impaired Funct Balance, Impaired I ADL's, Impaired Self-Care Skills, Restricted Funct UE ROM Discharge Recommendations Plan/Recommendations: Continue POC Therapy D/C Recommendations: Assisted Living, Occupational Therapy Home Care Target Placement At this time, pt. requires assistance at home and supervision for safety. Treatment Plan/Plan of Care Treatment,Training & Education: Yes Patient would benefit from OT for education, treatment and training to promote independence in ADL's, mobility, safety and/or upper extremity function for ADL' s. Plan of Care: ADL Retraining, Functional Mobility, UE Funct Exercise/Act Treatment Duration: Dec 01, 2016 Visits Per Week: 5-6 Agreement: Yes Rehab Potential: Fair Time/GCodes Start Time: 11:15 Stop Time: 11:30 Total Time Billed (hr/min): 15 Billed Treatment Time 1, OMAR Longo OT Nov 17, 2016 15:43
[2016-11-18] VITALS (12 sets, daily range): BP systolic 106–123; BP diastolic 63–81
[2016-11-18] MEDS: PIPERACILLIN/TAZOBACTAM 4.5 GM/NS 100 ML IVPB IV SCH ×2 (05:22)
[2016-11-18] MEDS: CATHETER FLUSH 10 ML SYR IV SCH (05:23)
[2016-11-18 05:54] LABS: BASOPHILS % (AUTO) 0 % (0-10); EOSINOPHILS % (AUTO) 0 % (0-10); LYMPHOCYTES # (AUTO) 1.5 X 10^3 (1.0-4.0); LYMPHOCYTES % (AUTO) 17 % (12-44); MEAN CORPUSCULAR HEMOGLOBIN 30 PG (25-34); MEAN CORPUSCULAR HGB CONC 30 G/DL (32-36); MEAN CORPUSCULAR VOLUME 99 FL (80-99); MEAN PLATELET VOLUME 10.8 FL (7.4-10.4); MONOCYTES # (AUTO) 0.9 X 10^3 (0.0-1.0); MONOCYTES % (AUTO) 10 % (0-12); NEUTROPHILS # (AUTO) 6.5 X 10^3 (1.8-7.8); NEUTROPHILS % (AUTO) 73 % (42-75); PLATELET COUNT 121 10^3/uL (130-400); RED BLOOD COUNT 4.24 10^6/uL (4.35-5.85); RED CELL DISTRIBUTION WIDTH 16.3 % (10.0-14.5)
[2016-11-18] MEDS: KCL 20 MEQ TAB (K-DUR) PO SCH (06:00)
[2016-11-18] MEDS: MAGNESIUM 1 GM/100 ML IVPB 100 ML IV SCH (06:00)
[2016-11-18] MEDS: POTASSIUM CL 10MEQ/50ML IVPB 50 ML IV SCH (06:00)
[2016-11-18 06:11] LABS: CALCIUM 8.2 MG/DL (8.5-10.1); CREATININE SERUM 1.5 MG/DL (0.60-1.30); MAGNESIUM 1.9 MG/DL (1.8-2.4); PHOSPHORUS 2.1 MG/DL (2.3-4.7); POTASSIUM 3.5 MMOL/L (3.6-5.0)
--- NOTE | 2016-11-18 06:33 | Pulmonary Progress Note ---
Subjective Subjective/Events-last exam Pt is doing better. No complications noted. Exam Exam Vital Signs Date Time Temp Pulse Resp B/P (MAP) Pulse Ox O2 Delivery O2 Flow Rate FiO2 11/18/16 06:23 98 2.00 11/18/16 05:00 81 10 116/69 98 Nasal Cannula 1.50 11/18/16 04:00 95 Nasal Cannula 2.00 11/18/16 04:00 98.2 78 22 108/64 96 Nasal Cannula 1.50 11/18/16 03:00 80 29 115/70 100 Nasal Cannula 1.50 11/18/16 02:00 78 25 106/73 100 Nasal Cannula 1.50 11/18/16 01:00 78 11/18/16 01:00 78 22 114/72 98 Nasal Cannula 1.50 11/18/16 00:00 97.5 78 21 116/81 98 Nasal Cannula 1.50 11/18/16 00:00 95 Nasal Cannula 2.00 11/17/16 23:00 80 12 102/66 98 Nasal Cannula 4.00 11/17/16 22:00 77 18 114/70 100 Nasal Cannula 4.00 11/17/16 21:00 87 14 99 Nasal Cannula 4.00 11/17/16 20:00 96.4 81 18 103/62 95 Nasal Cannula 4.00 11/17/16 20:00 95 Nasal Cannula 4.00 11/17/16 19:13 90 2.00 11/17/16 19:00 80 11/17/16 19:00 80 21 120/69 Nasal Cannula 4.00 11/17/16 18:00 80 26 98/52 Nasal Cannula 4.00 11/17/16 17:00 79 11 98/56 Nasal Cannula 4.00 11/17/16 16:30 94 Nasal Cannula 4.00 11/17/16 16:30 97.7 Nasal Cannula 4.00 11/17/16 16:00 80 15 92/56 100 Nasal Cannula 4.00 11/17/16 15:00 77 31 89/58 100 Nasal Cannula 4.00 11/17/16 14:00 80 31 115/60 99 Nasal Cannula 4.00 11/17/16 13:00 79 11/17/16 13:00 80 16 117/104 100 Nasal Cannula 4.00 11/17/16 12:10 94 Nasal Cannula 4.00 11/17/16 12:00 90 31 116/103 97 Nasal Cannula 4.00 11/17/16 12:00 98.8 11/17/16 11:00 85 31 111/59 99 Nasal Cannula 4.00 11/17/16 10:00 80 31 117/74 100 Nasal Cannula 4.00 11/17/16 09:33 98.1 Nasal Cannula 4.00 11/17/16 09:21 94 Nasal Cannula 4.00 11/17/16 08:00 81 18 141/76 95 Nasal Cannula 4.00 11/17/16 07:48 99 3.00 11/17/16 07:00 80 11/17/16 07:00 80 9 122/79 100 Nasal Cannula 4.00 I & O 11/18/16 07:00 Intake Total 1530 ml Output Total 1320 ml Balance 210 ml General Appearance: Anxious, Chronically ill, Mild Distress Neck: JVD Respiratory: No Accessory Muscle Use, Other (Expiratory wheezing noted anteriorly few breath sounds noted elsewhere) Cardiovascular: Regular Rate, Rhythm, No Murmur Capillary Refill: Less Than 3 Seconds Gastrointestinal: normal bowel sounds, non tender, soft Extremity: Other (Brawny tibial edema noted with erythema bilaterally the left leg is wrapped.) Neurologic/Psychiatric: Alert, Oriented x3 Results Lab Laboratory Tests 11/17/16 04:10 11/18/16 05:32 Assessment/Plan Assessment/Plan -Acute respiratory failure -continue noninvasive ventilation PRN - pt feels improved with it. -Pt will benefit from vent to mask as out patient -family is ok for short term ventilation only PNA - present on admission - growing Enterobacter -Continue Zosyn -June - probably contamination -Will give lasix x1 Morbid obesity Debility -PT/OT -Up to chair BID Clinical Quality Measures DVT/VTE Risk/Contraindication: Risk Factor Score Per Nursin RFS Level Per Nursing on Admit: 4+=Very High BRAXTON SILVA DO Nov 18, 2016 06:33
[2016-11-18] MEDS ORDERED: FUROSEMIDE 40 MG/4 ML INJ (LASIX) ONE (06:41)
[2016-11-18] MEDS ORDERED: FUROSEMIDE 40 MG/4 ML INJ (LASIX) IVP ONE (06:45)
[2016-11-18] MEDS ORDERED: POTASSIUM PHOSPHATE INJ 30 MM in NS (IVPB) 250 ML IV ONE ×4 (06:45)
[2016-11-18] MEDS ORDERED: methylPREDNISolone 40 MG/ML (Solu-MEDROL) VIAL IV SCH (06:45)
[2016-11-18] MEDS ORDERED: FUROSEMIDE 40 MG/4 ML INJ (LASIX) IVP NR (06:56)
--- NOTE | 2016-11-18 08:28 | Cardiology Progress Note ---
Subjective Subjective/Events-last exam patient is sitting in a chair, still having shortness of breath. Denied any chest pain. Denied any palpitation. Review of Systems General: No Chills, No Night Sweats, No Fatigue, No Malaise, No Appetite, No Other HEENT: No Head Aches, No Visual Changes, No Eye Pain, No Ear Pain, No Dysphasia , No Sinus Congestion, No Post Nasal Drip, No Sore Throat, No Other Pulmonary: Dyspnea, No Cough, No Pleuritic Chest Pain, No Other Cardiovascular: Edema, No: Chest Pain, Lt Headedness, Orthopnea, Other, Palpitations, Paroxysmal Noc. Dyspnea Objective-Cardiology Exam Last Set of Vital Signs Vital Signs 11/16/16 11/18/16 11/18/16 11/18/16 04:00 04:00 06:00 06:23 Temp 98.2 Pulse 91 Resp 9 B/P (MAP) 111/69 Pulse Ox 98 O2 Delivery Nasal Cannula O2 Flow Rate 2.00 FiO2 25 Capillary Refill : Less Than 3 SecondsLess Than 3 Seconds I&O Intake and Output 11/18/16 00:00 Intake Total 976 ml Output Total 1100 ml Balance -124 ml Intake Oral 680 ml IV Total 296 ml Output Urine Total 1100 ml # Voids 5 # Bowel Movements 2 General: Alert, Oriented X3, Cooperative, Moderate Distress HEENT: Atraumatic, PERRLA Neck: Supple, No JVD, No Thyromegaly Lungs: Normal Air Movement, Other (bilateral rhonchi) Heart: Regular Rate, Normal S1, Normal S2, No Murmurs Abdomen: Normal Bowel Sounds, Soft, No Tenderness, No Hepatosplenomegaly, No Masses Extremities: No Clubbing, No Cyanosis, Normal Pulses, No Tenderness/Swelling, Other (+2 edema) Skin: No Rashes, No Breakdown, No Significant Lesion Neuro: Normal Tone, Sensation Intact Results Lab Laboratory Tests 11/18/16 05:32 A/P-Cardiology Admission Diagnosis Acute respiratory failure Pneumonia Congestive heart failure Hypertension Assessment/Plan Acute respiratory failure, improving, continue antibiotics. Managed by Dr. Galicia Pneumonia, receiving antibiotics, managed and followed by Dr. Galicia. Acute on chronic left ventricular systolic dysfunction, nonischemic cardiomyopathy, continue to monitor fluid balance. Echo of 11/15/16: LVEF 30%, global hypokinesis that is more marked in the posterobasal wall, mild to mod TR & MR & AI, aortic valve sclerosis with mild aortic stenosis (peak grad 20 mmHg and valve area 1.8 sq cm), PASP approx 50-55 mmHg Acute on chronic renal failure. 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 Gating could not be carried out due to multiple and frequent premature ventricular contractions. Per MPI of March 2016 Marked chronic venous insufficiency with bilateral leg swelling and stasis dematitis H/o cellulitis in of his leg which is being followed by Dr. 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
--- NOTE | 2016-11-18 09:30 | Physical Therapy Daily Note ---
PT Daily Note-Current Subjective Voices that he does not want to stand up. Eventually agrees so that the wet pads under him can be changed. Reports he hurts "all over". Unable to rate or describe. Keeps eyes closed throughout most of treatment. Transfers Functional [place] Measure 0=Not Assessed/NA 4=Minimal Assistance 1=Total Assistance 5=Supervision or Setup 2=Maximal Assistance 6=Modified [place] 3=Moderate Assistance 7=Complete IndependenceIRFPAI Quality Coding Scale 6 Independent with activity with or without an assistive device 5 Patient requires set up or clean up by helper. Patient completes activity by themselves 4 Supervision or touching assist (CGA). [place] provide cues , steadying assist 3 The helper provides less than half the effort to complete the activity 2 The helper provides more than half the effort to complete the activity 1 Dependent. The helper does all the effort to complete an activity 7 Patient refused to complete or attempt activity 9 The patient did not perform the activity before the current illness or injury 88 Not attempted due to Medical conditions or safety concerns Pt able to scoot forward in chair with skilled cues for sequencing and sit to stand with CGA and skilled cues for hand placement. Pt able to stand x 4- minutes while skin cleansed, linens changed and he also urinated while standing in the urinal with assist to hold the urinal. Pt in chair post treatment with legs elevated. Oxygen in situ and needs met. Nurse present. Exercises Supine Ex: Ankle pumps, Heel Slides, Short Arc Quads, Hip abd/add Supine Reps: 10 (tactile assist to complete all. ) Assessment Current Status: Fair Progress Pt seems tired and not feeling well today. Cooperates with therapist. PT Short Term Goals Short Term Goals Transfers (B,C,W/C) (FIM): 5 PT Prison Goals Photoengraving Printer Goals PT Prison Goals Time Frame: Nov 24, 2016 Transfers (B,C,W/C) (FIM): 5 Gait (FIM): 1 Gait distance (FIM): 1=up to 49 ft Distance: 25' Gait Level of Assist: 5 Gait Assistive Device: FWW PT Plan Problem List Problem List: Activity Tolerance, Functional Strength Treatment/Plan Treatment Plan: Continue Plan of Care Treatment Plan: Bed Mobility, Education, Functional Activity Lg, Functional Strength, Gait, Safety, Therapeutic Exercise, Transfers Treatment Duration: Nov 24, 2016 Visits Per Week: 5-6 Safety Risks/Education Patient Education: Safety Issues Teaching Recipient: Patient Teaching Methods: Discussion Response to Teaching: Reinforcement Needed Educated pt on importance of moving legs for circulation and reduction of risk for skin breakdown. Discussed importance of standing and moving to assist in clearing his lungs. Time/GCodes Time In: 905 Time Out: 928 Total Billed Treatment Time: 23 Total Billed Treatment visit EX 8 FA 15 NORBERTO HENDERSON PT Nov 18, 2016 09:30
--- NOTE | 2016-11-18 11:19 | Occupational Ther Daily Note ---
OT Current Status-Daily Note Subjective Pt alert, sitting in recliner. Pt finishing breakfast. Agreed to therapy. No c/o pain. Mental Status/Objective Patient Orientation: Person Functional [place] Measure 0=Not Assessed/NA 4=Minimal Assistance 1=Total Assistance 5=Supervision or Setup 2=Maximal Assistance 6=Modified [place] 3=Moderate Assistance 7=Complete [place] ADL-Treatment Pt stated that he hadn't gotten cleaned up today. Per PT note pt was incontinent and required shannan care. Pt was able to complete upper body bathing and shannan area after set up. Assistance with lower body and buttocks needed. CGA for sit to stand then min A to transfer to toilet using FWW. Pt ambulated back to recliner using FWW. After therapy, pt sitting in recliner with legs elevated and call light/phone in reach. All needs met in room. Bathing (FIM): 3 Bathing Location: L Arm, R Arm, Chest, Abdomen, Perineal Area Toileting (FIM): 2 Transfers (B, C, W/C) (FIM): 4 Toilet/Commode Transfer (FIM): 4 OT Short Term Goals Short Term Goals Time Frame: Nov 24, 2016 Eating(FIM): 5 Grooming(FIM): 5 Bathing(FIM): 3 Upper Body Dressing(FIM): 4 Lower Body Dressing(FIM): 4 Toileting(FIM): 5 Transfers (B,C,W/C) (FIM): 5 Toilet/Commode Transfer(FIM): 5 Additional Short Term Goals: 1-Demonstrate ADL Tasks, 2-Verbalize Understanding , 3-ImproveStrength/Lg 1=Demonstrate adherence to instructed precautions during ADL tasks. 2=Patient will verbalize/demonstrate understanding of assistive devices/ modifications for ADL. 3=Patient will improve strength/tolerance for activity to enable patient to perform ADL's. OT Jail Goals Machine Ceramic Coater Goals Time Frame: Dec 01, 2016 Eating (FIM): 6 Grooming(FIM): 6 Bathing(FIM): 5 Upper Body Dressing(FIM): 6 Lower Body Dressing(FIM): 6 Toileting(FIM): 6 Transfers (B,C,W/C) (FIM): 6 Toilet/Commode Transfer(FIM): 6 Shower Transfer(FIM): 5 Additional Goals: 1-Demonstrate ADL Tasks, 2-Verbalize Understanding, 3- ImproveStrength/Lg 1=Demonstrate adherence to instructed precautions during ADL tasks. 2=Patient will verbalize/demonstrate understanding of assistive devices/ modifications for ADL. 3=Patient will improve strength/tolerance for activity to enable patient to perform ADL's. OT Education/Plan Discharge Recommendations Plan/Recommendations: Continue POC Treatment Plan/Plan of Care Patient would benefit from OT for education, treatment and training to promote independence in ADL's, mobility, safety and/or upper extremity function for ADL' s. Plan of Care: ADL Retraining, Functional Mobility, UE Funct Exercise/Act Treatment Duration: Dec 01, 2016 Visits Per Week: 5-6 Agreement: Yes Rehab Potential: Fair Time/GCodes Start Time: 11:00 Stop Time: 11:23 Total Time Billed (hr/min): 23 Billed Treatment Time 1 visit-FA 2 (23 min) NORBERTO NIÑO Nov 18, 2016 11:19
--- NOTE | 2016-11-18 13:22 | Discharge Summary-Hospitalist ---
Diagnosis/Chief Complaint Date of Admission Nov 15, 2016 at 09:00 Date of Discharge Nov 18, 2016 at 11:26 Discharge Date: Nov 18, 2016 Admission Diagnosis 1. Acute on chronic hypercapnic respiratory failure likely due to pneumonia prognosis poor although temporarily doing better on BiPAP. Continue antibiotics and BiPAP. 2. There is likely intravascular volume depletion with increasing creatinine level will discontinue Lasix and ignore elevated BNP likely due to this patient' s hypoxia and pulmonary hypertension. Prognosis remains poor. Discharge Diagnosis 1. Acute on chronic respiratory failure likely due to pneumonia x-ray findings worsening but patient maintaining oxygenation status LB it marginally with no functional reserve agree with Lasix dose today. 2. Chronic venous insufficiency of the lower extremities continue wound care 3. Mild systolic dysfunction with an ejection fraction of 45 percent and past history of severe pulmonary hypertension. 4. Acute on chronic kidney injury secondary to intravascular volume depletion. Reason Hospital Visit/Course Mr. Felton was sleeping soundly on BiPAP with an O2 saturation of 100 percent breathing easily. He presented to the emergency room in respiratory distress last night with complaints of shortness of breath and fatigue. He apparently lives alone at home with a family member who is close and checks on him frequently. He had not been well for the past several weeks having been treated at the wound care center for chronic venous insufficiency and intermittent lower extremity infection. He apparently has an old C2 fracture and has to sleep upright. In addition to this he had an echo in 2014 revealing severe pulmonary hypertension with an estimated pulmonary systolic pressure of 70 mmHg. He had mild to moderate systolic dysfunction with estimated ejection fraction of 45 percent. 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 History was taken from the electronic medical record. Hospital course: Patient did well on BiPAP and was able to be weaned to nasal cannula. Twice a day Lasix was held for a day due to acute kidney injury due to intravascular volume depletion. Chest x-ray worsened despite clinical improvement and Lasix was resumed. He maintained reasonable oxygenation although does remain quite marginal from a respiratory standpoint. His reserve capability is minimal. Other medical problems include acute on chronic systolic heart failure with a component of hypertensive heart disease. He has significant venous insufficiency of the lower extremities questionable cellulitis. He did grow Enterobacter sensitive to the usual antibiotics and has bilateral infiltrate likely due to pneumonia. He is being transferred to swing bed status to continue antibiotics and monitoring of his ring marginal respiratory status continuing higher flow O2. Discharge Summary Discharge Physical Examination Allergies: Coded Allergies: No Known Drug Allergies (Unverified , 11/18/16) Vitals & I&Os Vital Signs Date Time Temp Pulse Resp B/P (MAP) Pulse Ox O2 Delivery O2 Flow Rate FiO2 11/18/16 11:00 91 19 116/63 Nasal Cannula 1.50 11/18/16 10:00 98 11/18/16 08:00 97.7 11/16/16 04:00 25 Hospital Course Labs (last 24 hrs) Laboratory Tests 11/18/16 05:32: White Blood Count 9.0, Red Blood Count 4.24L, Hemoglobin 12.7L, Hematocrit 42, Mean Corpuscular Volume 99, Mean Corpuscular Hemoglobin 30, Mean Corpuscular Hemoglobin Concent 30L, Red Cell Distribution Width 16.3H, Platelet Count 121L, Mean Platelet Volume 10.8H, Neutrophils (%) (Auto) 73, Lymphocytes (%) (Auto) 17 , Monocytes (%) (Auto) 10, Eosinophils (%) (Auto) 0, Basophils (%) (Auto) 0, Neutrophils # (Auto) 6.5, Lymphocytes # (Auto) 1.5, Monocytes # (Auto) 0.9, Eosinophils # (Auto) 0.0, Basophils # (Auto) 0.0, Sodium Level 145, Potassium Level 3.5L, Chloride Level 101, Carbon Dioxide Level 35H, Anion Gap 9, Blood Urea Nitrogen 28H, Creatinine 1.50H, Estimat Glomerular Filtration Rate 44, BUN/ Creatinine Ratio 19, Glucose Level 86, Calcium Level 8.2L, Phosphorus Level 2.1L , Magnesium Level 1.9 Microbiology 11/15/16 Blood Culture - Preliminary, Resulted No growth 11/14/16 Gram Stain - Final, Complete 11/14/16 Sputum Culture - Final, Complete Enterobacter Cloacae Presumptive June Albicans 11/14/16 Gram Stain - Final, Resulted 11/14/16 Wound Culture - Preliminary, Resulted Enterobacter Cloacae Staphylococcus Aureus Enterococcus Faecalis Yeast Species Pending Labs Laboratory Tests 11/18/16 05:32: White Blood Count 9.0, Red Blood Count 4.24, Hemoglobin 12.7, Hematocrit 42, Mean Corpuscular Volume 99, Mean Corpuscular Hemoglobin 30, Mean Corpuscular Hemoglobin Concent 30, Red Cell Distribution Width 16.3, Platelet Count 121, Mean Platelet Volume 10.8, Neutrophils (%) (Auto) 73, Lymphocytes (%) (Auto) 17 , Monocytes (%) (Auto) 10, Eosinophils (%) (Auto) 0, Basophils (%) (Auto) 0, Neutrophils # (Auto) 6.5, Lymphocytes # (Auto) 1.5, Monocytes # (Auto) 0.9, Eosinophils # (Auto) 0.0, Basophils # (Auto) 0.0, Sodium Level 145, Potassium Level 3.5, Chloride Level 101, Carbon Dioxide Level 35, Anion Gap 9, Blood Urea Nitrogen 28, Creatinine 1.50, Estimat Glomerular Filtration Rate 44, BUN/ Creatinine Ratio 19, Glucose Level 86, Calcium Level 8.2, Phosphorus Level 2.1, Magnesium Level 1.9 Discharge Home Medications: Active Scripts Active Reported Detrol LA (Tolterodine Tartrate) 4 Mg Cap 4 Mg PO DAILY [Silver Alginate] TP DAILY Enalapril Maleate 5 Mg Tablet 5 Mg PO DAILY Furosemide 80 Mg Tablet 80 Mg PO DAILY Klor-Con M10 (Potassium Chloride) 10 Meq Tab.er.prt 10 Meq PO DAILY Doxycycline Monohydrate 100 Mg Capsule 100 Mg PO BID FILLED 11/01/16 #28 FOR A 14 DAY THERAPY Aspir 81 (Aspirin) 81 Mg Tablet.dr 81 Mg PO DAILY Ampicillin Trihydrate 500 Mg Capsule 500 Mg PO TID FILLED 11/01/16 #42 FOR A 14 DAY THERAPY Instructions to patient/family Please see electonic discharge instructions given to patient. Clinical Quality Measures DVT/VTE Risk/Contraindication: Risk Factor Score Per Nursin RFS Level Per Nursing on Admit: 4+=Very High PRASHANTH CHAPMAN MD Nov 18, 2016 13:22
== END 2016-11-18 11:26 | disposition swing bed (61) | DRG 189 ==
LOC: EDUNIT# 12:43 → ER 12:46 → UNDOADMOB 15:30 → 4TH 15:30 → ICU 11-15 03:39 → INTOOBSV 11-15 09:00 → OBSVTOIN 11-15 09:00 → ICU 11-16 11:28 → 4TH 11-16 11:28
PROVIDERS: ADMIT Internal Medicine; ATTEND Internal Medicine
DX: J96.22 Acute and chronic respiratory failure with hypercapnia (principal); J15.6 Pneumonia due to other Gram-negative bacteria; I27.2 Other secondary pulmonary hypertension; I13.0 Hypertensive heart and chronic kidney disease with heart failure and stage 1 through stage 4 chronic kidney disease, or unspecified chronic kidney disease; I50.22 Chronic systolic (congestive) heart failure; I42.9 Cardiomyopathy, unspecified; N17.9 Acute kidney failure, unspecified; N18.9 Chronic kidney disease, unspecified; Z66 Do not resuscitate; E66.01 Morbid (severe) obesity due to excess calories; Z68.41 Body mass index [BMI] 40.0-44.9, adult; E86.9 Volume depletion, unspecified; I87.2 Venous insufficiency (chronic) (peripheral); E78.5 Hyperlipidemia, unspecified; I08.3 Combined rheumatic disorders of mitral, aortic and tricuspid valves; N40.1 Benign prostatic hyperplasia with lower urinary tract symptoms; R35.0 Frequency of micturition; I73.9 Peripheral vascular disease, unspecified; Z95.0 Presence of cardiac pacemaker; Z87.891 Personal history of nicotine dependence
CPT/HCPCS: 36415; 70450; 71010; 71020; 80048; 80053; 82140; 82805; 82962; 83605; 83735; 83880; 84100; 84484; 85025; 85610; 87040; 87070; 87077; 87106; 87186; 87205; 93005; 93306; 94640; 94660; 96365; 96375; G0378

== ENCOUNTER 2016-11-18 10:57 | Inpatient (IN) | payer MEDICARE, OTHER ==
[~2016-11-18] VITALS: Ht 167.6 cm; Wt 118.4 kg
[~2016-11-18 10:57] MED LIST changes: +AMPI500C9 PO; +DOXY100C42 PO; +DOXY100T2 PO; +ENAL5TAB PO; +POTA10TA14 PO; +SILV400C23 TP; +SILVER ALGINATE TP; +TOLTA4 PO
[2016-11-18] MEDS ORDERED: CATHETER FLUSH 10 ML SYR IV PRN (11:30)
[2016-11-18] MEDS ORDERED: methylPREDNISolone 40 MG/ML (Solu-MEDROL) VIAL IV SCH (11:30)
[2016-11-18 11:40] VITALS: BP 116/66
[2016-11-18] MEDS ORDERED: PIPERACILLIN SODIUM/TAZOBACTAM 4.5 GM in NS (IVPB) 100 ML IV NR (13:00)
--- NOTE | 2016-11-18 13:18 | Physical Therapy Evaluation ---
PT Evaluation-General Medical Diagnosis Admission Date Nov 18, 2016 at 11:31 Medical Diagnosis: pneumonia/CHF Onset Date: Nov 15, 2016 Therapy Diagnosis Therapy Diagnosis: generalized weakness/debility Height/Weight Height (Feet): 5 Height (Inches): 6.00 Weight (Pounds): 261 Weight (Ounces): 5.0 Referral Physician: Sade Reason for Referral: Evaluation/Treatment Medical History Pertinent Medical History: Heart Failure, HTN, PVD, Smoking Additional Medical History C2 fracture in 2004 Current History SWB status Reviewed History: Yes Social History Home: Apartment Current Living Status: Alone Entry Into Home: Level Entry Prior/Core FIM Prior Level of Function Functional [place] Measure 0=Not Assessed/NA 4=Minimal Assistance 1=Total Assistance 5=Supervision or Setup 2=Maximal Assistance 6=Modified [place] 3=Moderate Assistance 7=Complete [place] Bed Mobility: 6 Transfers (B,C,W/C) (FIM): 6 Gait: 2 ambulates short distances at home and son takes him out on a 4 leach PT Evaluation-Current Subjective Patient is in a recliner and agrees to therapy. Pain Numeric Pain Scale: 0-No Pain Location: No Pain Reported Objective Patient Orientation: Normal For Age Problem Solving: Good Attachments: Oxygen, IV ROM/Strength ROM Lower Extremities bilateral LE WFL Strenght Lower Extremities bilateral LE WFL Integumentary/Posture Integumentary left LE wound Bowel Incontinence: No Bladder Incontinence: No Posture WNL Neuromuscular (Tone, Coordination, Reflexes) grossly intact Sensory Vision: Wears Glasses Hearing: Impaired Sensation Right Lower Extremit: Impaired Sensation Left Lower Extremity: Impaired Transfers Functional [place] Measure 0=Not Assessed/NA 4=Minimal Assistance 1=Total Assistance 5=Supervision or Setup 2=Maximal Assistance 6=Modified [place] 3=Moderate Assistance 7=Complete [place] Transfers (B, C, W/C) (FIM): 5 Scootin Rollin Supine to/from Sit: 5 Sit to/from Stand: 5 Sit to Lying (QC): 5 Lying to Sitting/Side of Bed(Q: 5 Sit to Stand (QC): 5 SBA with all mobility Gait Does the Patient Walk?: Yes Mode of Locomotion: Walk Anticipated Mode of Locomotion: Walk Gait (FIM): 2 Distance (FIM): 4=875-41 ft Distance: 50' Walk 50 ft with 2 Turns(QC): 5 Gait Level of Assist: 5 Gait Persons Needed: 1 Gait Assistive Device: FWW Comments/Gait Description assist for O2 and IV; safe and functional gait sequence Balance Sitting Static: Normal Sitting Dynamic: Normal Standing Static: Normal Standing Dynamic: Normal Treatment bilateral LE exercises in bed 10 reps each AP, QS, HS, abd/add, SLR AROM with recovery periods due to fatigue and increase SOA Assessment/Needs 86 y.o. male, will benefit from skilled PT to address functional strength and mobility to improve current LOF and to safely return to home with home health care intervention. Rehab Potential: Fair Post Rehab Potential-Barriers: CHF/compliance PT Spray Machine Loader Goals Spray Machine Loader Goals PT Spray Machine Loader Goals Time Frame: Nov 30, 2016 Transfers (B,C,W/C) (FIM): 6 Sit to Lying (QC): 5 Lying-Sitting on Side/Bed(QC): 5 Sit to Stand (QC): 5 Rollin Does the Patient Walk: Yes Gait (FIM): 2 Gait distance (FIM): 2=878-18 ft Distance: 75' Walk 50ft with 2 Turns (QC): 5 Gait Level of Assist: 5 Gait Assistive Device: FWW PT Plan Problem List Problem List: Activity Tolerance, Functional Strength, Safety Treatment/Plan Treatment Plan: Continue Plan of Care Treatment Plan: Education, Functional Activity Lg, Functional Strength, Gait , Safety, Therapeutic Exercise, Transfers Treatment Duration: Nov 30, 2016 # of days/week 6 Visits Per Week: 6 Minutes/Day (M-F): 15-30 Minutes/Day (Sat/Null): PRN Pt/Family Agrees w/Plan: Yes Safety Risks/Education Patient Education: Safety Issues Teaching Recipient: Patient Teaching Methods: Discussion Response to Teaching: Verbalize Understanding Discharge Recommendations Therapy D/C Recommendations: Physical Therapy Home Care Time/GCodes Time In: 1235 Time Out: 1258 Total Billed Treatment Time: 23 Total Billed Treatment 1 visit EVLowC 8 min EX 15 min VALDEMAR ONEAL PT Nov 18, 2016 13:17
[2016-11-18] MEDS: methylPREDNISolone 40 MG/ML (Solu-MEDROL) VIAL IV SCH ×2 (13:50→17:52)
[2016-11-18] MEDS ORDERED: PIPERACILLIN/TAZOBACTAM 4.5 GM/NS 100 ML IV SCH ×4 (14:00→19:00)
--- NOTE | 2016-11-18 15:28 | Occupational Therapy Eval ---
OT Evaluation-General/PLF Medical Diagnosis Admission Date Nov 18, 2016 at 11:31 Medical Diagnosis: pneumonia/CHF Onset Date: Nov 15, 2016 Therapy Diagnosis Therapy Diagnosis: decreased self care skills Height/Weight Height (Feet): 5 Height (Inches): 6.00 Weight (Pounds): 261 Weight (Ounces): 5.0 Referral Physician: Sade Medical History Pertinent Medical History: Heart Failure, HTN, PVD, Smoking Additional Medical History C2 fracture, pulmonary hypertension, pacemaker Reviewed History: Yes Social History Home: Single Level Current Living Status: Alone Entry Into Home: Level Entry ADL-Prior Level of Function ADL PLOF Comments Pt reports being independent with basic self care prior to admission. DME/Equipment: Bath Chair, Tub/Shower DME/Equipment Comments FWW Drive Self: Yes OT Current Status Subjective Pt sitting in chair, agrees to therapy. Pt has no c/o pain at this time. Mental Status/Objective Patient Orientation: Person, Place Attachments: IV, Oxygen Current Glasses/Contacts: Yes Hearing Aids: No Dentures/Partials: Yes Hand Dominance: Right Upper Extremity ROM shoulder flexion to 90degrees. Remainder WFL Upper Extremity Sensation Intact per pt report Upper Extremity Strength Grossly 4-/5 ADL-Treatment ADL-Current Pt eating meal when therapist arrives. Pt able to feed self after set up. Pt combed hair with minimal assistance to reach back of head. Washed face with set up. Pt states he spilled his urinal earlier and needs gown changed. Pt able to perform shannan hygiene. Changed gown with assist secondary to IV. Pt requests to use BSC. Sit to stand with CGA. Transfer to BSC with CGA using FWW. Pt sitting on BSC with call light in hand after session. RN was notified and agreeable. Functional [place] Measure 0=Not Assessed/NA 4=Minimal Assistance 1=Total Assistance 5=Supervision or Setup 2=Maximal Assistance 6=Modified [place] 3=Moderate Assistance 7=Complete IndependenceIRFPAI Quality Coding Scale 6 Independent with activity with or without an assistive device 5 Patient requires set up or clean up by helper. Patient completes activity by themselves 4 Supervision or touching assist (CGA). [place] provide cues , steadying assist 3 The helper provides less than half the effort to complete the activity 2 The helper provides more than half the effort to complete the activity 1 Dependent. The helper does all the effort to complete an activity 7 Patient refused to complete or attempt activity 9 The patient did not perform the activity before the current illness or injury 88 Not attempted due to Medical conditions or safety concerns Eating (FIM): 5 Eating (QC): 5 Grooming (FIM): 5 Toilet/Commode Transfer (FIM): 4 Toilet Transfer (QC): 4 Education OT Patient Education: Rehab process Teaching Recipient: Patient Teaching Methods: Discussion Response to Teaching: Verbalize Understanding OT Short Term Goals Short Term Goals 1=Demonstrate adherence to instructed precautions during ADL tasks. 2=Patient will verbalize/demonstrate understanding of assistive devices/ modifications for ADL. 3=Patient will improve strength/tolerance for activity to enable patient to perform ADL's. OT Residential Goals Leadership Recruiter Goals Time Frame: Dec 02, 2016 Eating (FIM): 6 Eating (QC): 6 Groomin Oral Hygiene (QC): 6 Bathing(FIM): 5 Upper Body Dressing(FIM): 6 Lower Body Dressing(FIM): 6 Toileting(FIM): 5 Toileting Hygiene (QC): 5 Toilet/Commode Transfer(FIM): 6 Toilet/Commode Transfer (QC): 6 Additional Goals: 1-Demonstrate ADL Tasks, 2-Verbalize Understanding, 3- ImproveStrength/Lg 1=Demonstrate adherence to instructed precautions during ADL tasks. 2=Patient will verbalize/demonstrate understanding of assistive devices/ modifications for ADL. 3=Patient will improve strength/tolerance for activity to enable patient to perform ADL's. OT Education/Plan Problem List/Assessment Assessment: Decreased Activ Tolerance, Decreased UE Strength, Dependent Transfers, Impaired Self-Care Skills Pt to benefit from skilled OT intervention for ADL training, transfers, strengthening, and safety education to maximize level of function and allow safe discharge. Discharge Recommendations Plan/Recommendations: Continue POC Treatment Plan/Plan of Care Treatment,Training & Education: Yes Patient would benefit from OT for education, treatment and training to promote independence in ADL's, mobility, safety and/or upper extremity function for ADL' s. Plan of Care: ADL Retraining, Functional Mobility, UE Funct Exercise/Act Treatment Duration: Dec 02, 2016 # of days/week 5 Visits Per Week: 5 Agreement: Yes Rehab Potential: Fair Time/GCodes Start Time: 14:47 Stop Time: 15:15 Total Time Billed (hr/min): 28 Billed Treatment Time 1 visit, EVL(13minutes), ADL(15minutes) JESSICA SIFUENTES OT Nov 18, 2016 15:28
[2016-11-18 16:25] VITALS: BP 126/72
[2016-11-18 19:15] VITALS: BP 116/68
[2016-11-18] MEDS: PIPERACILLIN/TAZOBACTAM 4.5 GM/NS 100 ML IV SCH ×2 (21:13)
[2016-11-18] MEDS: CATHETER FLUSH 10 ML SYR IV PRN (21:13)
[2016-11-18 23:12] VITALS: BP 143/78
[2016-11-19] MEDS: methylPREDNISolone 40 MG/ML (Solu-MEDROL) VIAL IV SCH ×3 (00:45→20:09)
[2016-11-19 04:00] VITALS: BP 124/70
[2016-11-19] MEDS: CATHETER FLUSH 10 ML SYR IV PRN ×3 (05:41→22:33)
[2016-11-19] MEDS: PIPERACILLIN/TAZOBACTAM 4.5 GM/NS 100 ML IV SCH ×6 (05:41→22:33)
[2016-11-19 08:11] VITALS: BP 131/63
--- NOTE | 2016-11-19 08:42 | Physical Therapy Daily Note ---
PT Daily Note-Current Subjective Patient is up in recliner and agrees to PT. Pain Numeric Pain Scale: 0-No Pain Location: No Pain Reported Mental Status Patient Orientation: Normal For Age Attachments: Oxygen, IV Transfers Functional [place] Measure 0=Not Assessed/NA 4=Minimal Assistance 1=Total Assistance 5=Supervision or Setup 2=Maximal Assistance 6=Modified [place] 3=Moderate Assistance 7=Complete IndependenceIRFPAI Quality Coding Scale 6 Independent with activity with or without an assistive device 5 Patient requires set up or clean up by helper. Patient completes activity by themselves 4 Supervision or touching assist (CGA). [place] provide cues , steadying assist 3 The helper provides less than half the effort to complete the activity 2 The helper provides more than half the effort to complete the activity 1 Dependent. The helper does all the effort to complete an activity 7 Patient refused to complete or attempt activity 9 The patient did not perform the activity before the current illness or injury 88 Not attempted due to Medical conditions or safety concerns Transfers (B, C, W/C) (FIM): 5 Scootin Sit to/from Stand: 5 Sit to Stand (QC): 5 Gait Training Does the Patient Walk?: Yes Gait (FIM): 4 Distance (FIM): 3=150 ft Distance: 175' Walk 50 ft with 2 Turns(QC): 4 Walk 150 ft (QC): 4 Gait Level of Assist: 4 Gait Persons Needed: 1 Gait Assistive Device: FWW CGA for safety Exercises Seated Therapy Exercises: Ankle pumps, Long arc quads, Hip flexion Seated Reps: 15 Assessment Patient tolerated treatment well and is improving with distance with gait and functional mobility. PT to increase activity as tolerated by patient. PT Nursing Home Goals Section Beamer Goals PT Section Beamer Goals Time Frame: Nov 30, 2016 Transfers (B,C,W/C) (FIM): 6 Sit to Lying (QC): 5 Lying-Sitting on Side/Bed(QC): 5 Sit to Stand (QC): 5 Rollin Does the Patient Walk: Yes Gait (FIM): 2 Gait distance (FIM): 3=803-15 ft Distance: 75' Walk 50ft with 2 Turns (QC): 5 Gait Level of Assist: 5 Gait Assistive Device: FWW PT Plan Treatment/Plan Treatment Plan: Continue Plan of Care Treatment Plan: Education, Functional Activity Lg, Functional Strength, Gait , Safety, Therapeutic Exercise, Transfers Treatment Duration: Nov 30, 2016 Visits Per Week: 6 Minutes/Day (M-F): 15-30 Minutes/Day (Sat/Null): PRN Time/GCodes Time In: 822 Time Out: 837 Total Billed Treatment Time: 15 Total Billed Treatment 1 visit FA 15 min VALDEMAR ONEAL PT Nov 19, 2016 08:42
--- NOTE | 2016-11-19 10:07 | Progress Note-Hospitalist ---
Subjective Date Seen 11/19/16 Subjective/Events-last exam Mr. Felton was sitting up in the chair reporting less shortness of breath this morning. His appetite is been fair. He denies leg pain. He is still extremely weak. He has been able to produce a small amount of purulent sputum. He denies chills or fever. Objective Exam Vital Signs Vital Sign - Last 12Hours Capillary Refill : General Appearance: No Apparent Distress, Chronically ill, Obese Respiratory: Chest Non Tender, No Accessory Muscle Use, No Respiratory Distress , Other (chest is much clearer anteriorly breath sounds are diminished posteriorly. No wheezing is noted there is increased air movement generally.) Cardiovascular: Regular Rate, Rhythm (frequent prematurity's are noted), No Gallop, No Murmur, Other (3+ chronic pretibial and pedal edema is present.) Assessment/Plan Assessment and Plan Assess & Plan/Chief Complaint 1. Acute on chronic hypercapnic respiratory failure due to pneumonia growing Enterobacter continue IV antibiotics and bronchodilator therapy. 2. Acute on chronic systolic failure compensated. PRASHANTH CHAPMAN MD Nov 19, 2016 10:07
[2016-11-19 12:00] VITALS: BP 131/66
[2016-11-19] MEDS ORDERED: RT-ALBUTEROL/IPRATROPIUM 3 ML (DUONEB) VIAL ONE (15:02)
[2016-11-19] MEDS: RT-ALBUTEROL/IPRATROPIUM 3 ML (DUONEB) VIAL INH PRN ×2 (15:09→23:09)
[2016-11-19 18:45] VITALS: BP 138/79
[2016-11-19] MEDS: RT-ALBUTEROL/IPRATROPIUM 3 ML (DUONEB) VIAL INH SCH (19:01)
[2016-11-20 05:13] VITALS: BP 138/67
[2016-11-20] MEDS: PIPERACILLIN/TAZOBACTAM 4.5 GM/NS 100 ML IV SCH ×6 (05:48→21:27)
[2016-11-20] MEDS: CATHETER FLUSH 10 ML SYR IV PRN ×3 (05:49→20:13)
[2016-11-20] MEDS: FUROSEMIDE 40 MG (LASIX) TAB PO SCH (06:46)
[2016-11-20] MEDS: RT-ALBUTEROL/IPRATROPIUM 3 ML (DUONEB) VIAL INH SCH ×3 (07:47→19:49)
[2016-11-20] MEDS: TOLTERODINE LA 4 MG (DETROL) CAP PO SCH (08:35)
[2016-11-20] MEDS: methylPREDNISolone 40 MG/ML (Solu-MEDROL) VIAL IV SCH ×2 (08:35→20:13)
[2016-11-20] MEDS: KCL 10 MEQ TAB (MICRO K) PO SCH (08:36)
[2016-11-20] MEDS: ASPIRIN E.C. 81 MG (ECOTRIN) TAB PO SCH (08:37)
[2016-11-20] MEDS ORDERED: NON-FORMULARY MEDICATION 1 EA EA (Potassium Chloride (Klor-Con M10) 10 MEQ) PO SCH (09:00)
[2016-11-20] MEDS ORDERED: NON-FORMULARY MEDICATION 1 EA EA (Furosemide 80 MG) PO SCH (09:00)
[2016-11-20 18:00] VITALS: BP 138/67
[2016-11-21 05:35] LABS: BASOPHILS % (AUTO) 0 % (0-10); EOSINOPHILS % (AUTO) 0 % (0-10); LYMPHOCYTES # (AUTO) 0.6 X 10^3 (1.0-4.0); LYMPHOCYTES % (AUTO) 5 % (12-44); MEAN CORPUSCULAR HEMOGLOBIN 29 PG (25-34); MEAN CORPUSCULAR HGB CONC 29 G/DL (32-36); MEAN CORPUSCULAR VOLUME 101 FL (80-99); MEAN PLATELET VOLUME 10.9 FL (7.4-10.4); MONOCYTES # (AUTO) 0.4 X 10^3 (0.0-1.0); MONOCYTES % (AUTO) 3 % (0-12); NEUTROPHILS # (AUTO) 11.2 X 10^3 (1.8-7.8); NEUTROPHILS % (AUTO) 92 % (42-75); PLATELET COUNT 139 10^3/uL (130-400); RED BLOOD COUNT 4.53 10^6/uL (4.35-5.85); RED CELL DISTRIBUTION WIDTH 16.5 % (10.0-14.5); WHITE BLOOD COUNT 12.2 10^3/uL (4.3-11.0)
[2016-11-21 05:54] LABS: CALCIUM 8.4 MG/DL (8.5-10.1); CREATININE SERUM 1.65 MG/DL (0.60-1.30); POTASSIUM 4.2 MMOL/L (3.6-5.0)
[2016-11-21 06:00] VITALS: BP 121/71
[2016-11-21] MEDS: PIPERACILLIN/TAZOBACTAM 4.5 GM/NS 100 ML IV SCH ×6 (06:16→21:32)
[2016-11-21] MEDS: FUROSEMIDE 40 MG (LASIX) TAB PO SCH (06:17)
[2016-11-21] MEDS: RT-ALBUTEROL/IPRATROPIUM 3 ML (DUONEB) VIAL INH SCH ×3 (07:52→21:51)
--- NOTE | 2016-11-21 07:58 | Pulmonary Consultation ---
History of Present Illness History of Present Illness Date of Consultation 11/21/16 07:56 Date of Admission Allergies and Home Medications Allergies Coded Allergies: No Known Drug Allergies (Unverified , 11/18/16) Home Medications Ampicillin Trihydrate 500 Mg Capsule, 500 MG PO TID, (Reported) FILLED 11/01/16 #42 FOR A 14 DAY THERAPY Aspirin 81 Mg Tablet.dr, 81 MG PO DAILY, (Reported) Doxycycline Monohydrate 100 Mg Capsule, 100 MG PO BID, (Reported) FILLED 11/01/16 #28 FOR A 14 DAY THERAPY Enalapril Maleate 5 Mg Tablet, 5 MG PO DAILY, (Reported) Furosemide 80 Mg Tablet, 80 MG PO DAILY, (Reported) Potassium Chloride 10 Meq Tab.er.prt, 10 MEQ PO DAILY, (Reported) Tolterodine Tartrate 4 Mg Cap, 4 MG PO DAILY, (Reported) [Silver Alginate] , TP DAILY, (Reported) Past Pobrncz-Wagxzi-Bbvycg Hx Patient Social History Type Used: Cigarettes Former Smoker/When Quit: Mar 31, 1987 Recent Hopitalizations: Yes (broken neck in 2004) Immunizations Up To Date Date of Pneumonia Vaccine: Mar 14, 2015 Seasonal Allergies Seasonal Allergies: No Surgeries HX Surgeries: Yes (NECK SURGERY, HERNIA SX, ) Surgeries: Orthopedic, Pacemaker Respiratory Hx Respiratory Disorders: No Respiratory Disorders: Pneumonia Cardiovascular Hx Cardiac Disorders: Yes ([employer] [place] pacemaker) Cardiac Disorders: Chronic Edema/Swelling, Hypertension, Peripheral Vascular Neurological Hx Neurological Disorders: No Reproductive System Hx Reproductive Disorders: No Genitourinary Hx Genitourinary Disorders: No Genitourinary Disorders: Benign Prostatic Hyperpl, Prostate Problems Gastrointestinal Hx Gastrointestinal Disorders: No Musculoskeletal Hx Musculoskeletal Disorders: Yes (broken neck and broken wrist) Musculoskeletal Disorders: Fractures Endocrine Hx Endocrine Disorders: No HEENT HX ENT Disorders: Yes HEENT Disorders: Cataract Hearing Impairment: Hard of Hearing Cancer Hx Cancer: No Psychosocial Hx Psychiatric Problems: No Integumentary HX Skin/Integumentary Disorder: No (HX OF CELLULITIS) Skin/Integumentary Disorders: Recent Skin Changes Blood Transfusions Hx Blood Disorders: No Family Medical History Family Medial History: Arthritis 19 MOTHER Colon cancer G8 BROTHER G8 SISTER Myocardial infarction G8 BROTHER Exam Exam Vital Signs Date Time Temp Pulse Resp B/P (MAP) Pulse Ox O2 Delivery O2 Flow Rate FiO2 11/21/16 06:00 97.9 78 24 121/71 97 Nasal Cannula 3.00 11/20/16 21:15 Nasal Cannula 2.00 11/20/16 19:49 95 2.00 11/20/16 18:00 97.3 82 20 138/67 95 Nasal Cannula 11/20/16 15:45 2.00 11/20/16 08:06 Nasal Cannula 2.00 I & O 11/21/16 07:00 Intake Total 1780 ml Output Total 100 ml Balance 1680 ml General Appearance: No Apparent Distress, Chronically ill, Obese Respiratory: Chest Non Tender, No Accessory Muscle Use, No Respiratory Distress , Other (chest is much clearer anteriorly breath sounds are diminished posteriorly. No wheezing is noted there is increased air movement generally.) Cardiovascular: Regular Rate, Rhythm (frequent prematurity's are noted), No Gallop, No Murmur, Other (3+ chronic pretibial and pedal edema is present.) Results Lab Laboratory Tests 11/21/16 05:25 Assessment/Plan Assessment/Plan -Acute respiratory failure -repeat CXR PNA Enterobacter - resolving - Zosyn Morbid obesity Debility -PT/OT -Up to chair BRAXTON SO DO Nov 21, 2016 07:58
[2016-11-21] MEDS: TOLTERODINE LA 4 MG (DETROL) CAP PO SCH (08:55)
[2016-11-21] MEDS: methylPREDNISolone 40 MG/ML (Solu-MEDROL) VIAL IV SCH ×2 (08:55→21:31)
[2016-11-21] MEDS: KCL 10 MEQ TAB (MICRO K) PO SCH (08:56)
[2016-11-21] MEDS: ASPIRIN E.C. 81 MG (ECOTRIN) TAB PO SCH (08:56)
--- NOTE | 2016-11-21 09:26 | Diagnostic Imaging Report ---
EXAMINATION: PA and lateral views of the chest. INDICATION: Shortness of breath. COMPARISON: 11/17/2014. FINDINGS: There is moderate to severe cardiac enlargement. There is improved pulmonary vascular congestion. There is still a left pleural effusion and atelectasis or infiltrate in the left lower lobe. A prominent gas density in the retrocardiac region is presumably related to a hiatal hernia. A pacemaker with two leads is seen. IMPRESSION: Improving vascular congestion. Stable moderate left pleural effusion with left basilar atelectasis or infiltrate. Dictated by: Dictated on workstation # [id number]
--- NOTE | 2016-11-21 11:30 | Occupational Ther Daily Note ---
OT Current Status-Daily Note Subjective Pt alert, sitting up in chair. Pt c/o not being comfortable and wanting to be able to rest. Pt agreed to therapy. Mental Status/Objective Patient Orientation: Person, Situation Functional [place] Measure 0=Not Assessed/NA 4=Minimal Assistance 1=Total Assistance 5=Supervision or Setup 2=Maximal Assistance 6=Modified [place] 3=Moderate Assistance 7=Complete [place] Attachments: IV, Oxygen ADL-Treatment Sit to stand with min A then ambulated with CGA using FWW to bathroom. Pt incontinent of urine while transferring onto toilet. CGA for pt to transfer onto and off of toilet using grabbars and FWW. Pt able to cleanse [place]ann[place] area then assist to cleanse buttocks. Pt stood at sink and bathed hands chest and face. Pt leaning heavily against sink while completing. Pt unable to don/doff socks by self. Pt ambulated back to bed. Pt sat EOB by self then CGA to lay down in bed then was incontinent of urine again. Nrsg in room and took over care. Functional [place] Measure 0=Not Assessed/NA 4=Minimal Assistance 1=Total Assistance 5=Supervision or Setup 2=Maximal Assistance 6=Modified [place] 3=Moderate Assistance 7=Complete IndependenceIRFPAI Quality Coding Scale 6 Independent with activity with or without an assistive device 5 Patient requires set up or clean up by helper. Patient completes activity by themselves 4 Supervision or touching assist (CGA). [place] provide cues , steadying assist 3 The helper provides less than half the effort to complete the activity 2 The helper provides more than half the effort to complete the activity 1 Dependent. The helper does all the effort to complete an activity 7 Patient refused to complete or attempt activity 9 The patient did not perform the activity before the current illness or injury 88 Not attempted due to Medical conditions or safety concerns Bathing (FIM): 3 Lower Body Dressing (FIM): 1 Toileting (FIM): 2 Toileting Hygiene (QC): 2 Transfers (B, C, W/C) (FIM): 4 Toilet/Commode Transfer (FIM): 4 Toilet Transfer (QC): 4 OT Short Term Goals Short Term Goals 1=Demonstrate adherence to instructed precautions during ADL tasks. 2=Patient will verbalize/demonstrate understanding of assistive devices/ modifications for ADL. 3=Patient will improve strength/tolerance for activity to enable patient to perform ADL's. OT Transfer Machine Operator Goals Snf Goals Time Frame: Dec 02, 2016 Eating (FIM): 6 Eating (QC): 6 Groomin Oral Hygiene (QC): 6 Bathing(FIM): 5 Upper Body Dressing(FIM): 6 Lower Body Dressing(FIM): 6 Toileting(FIM): 5 Toileting Hygiene (QC): 5 Toilet/Commode Transfer(FIM): 6 Toilet/Commode Transfer (QC): 6 Additional Goals: 1-Demonstrate ADL Tasks, 2-Verbalize Understanding, 3- ImproveStrength/Lg 1=Demonstrate adherence to instructed precautions during ADL tasks. 2=Patient will verbalize/demonstrate understanding of assistive devices/ modifications for ADL. 3=Patient will improve strength/tolerance for activity to enable patient to perform ADL's. OT Education/Plan Problem List/Assessment Pt to benefit from skilled OT intervention for ADL training, transfers, strengthening, and safety education to maximize level of function and allow safe discharge. Discharge Recommendations Plan/Recommendations: Continue POC Treatment Plan/Plan of Care Patient would benefit from OT for education, treatment and training to promote independence in ADL's, mobility, safety and/or upper extremity function for ADL' s. Plan of Care: ADL Retraining, Functional Mobility, UE Funct Exercise/Act Treatment Duration: Dec 02, 2016 Visits Per Week: 5 Agreement: Yes Rehab Potential: Fair Time/GCodes Start Time: 11:02 Stop Time: 11:25 Total Time Billed (hr/min): 23 Billed Treatment Time 1 visit-FA 2 (23 min) NORBERTO NIÑO Nov 21, 2016 11:30
--- NOTE | 2016-11-21 15:14 | Physical Therapy Daily Note ---
PT Daily Note-Current Subjective Patient is up in recliner and states he has been waiting for someone to help order his lunch. PT with patient, ordered lunch. Nursing notified. Pain Numeric Pain Scale: 0-No Pain Location: No Pain Reported Mental Status Patient Orientation: Person, Time, Situation Attachments: Oxygen, IV Transfers Functional [place] Measure 0=Not Assessed/NA 4=Minimal Assistance 1=Total Assistance 5=Supervision or Setup 2=Maximal Assistance 6=Modified [place] 3=Moderate Assistance 7=Complete IndependenceIRFPAI Quality Coding Scale 6 Independent with activity with or without an assistive device 5 Patient requires set up or clean up by helper. Patient completes activity by themselves 4 Supervision or touching assist (CGA). [place] provide cues , steadying assist 3 The helper provides less than half the effort to complete the activity 2 The helper provides more than half the effort to complete the activity 1 Dependent. The helper does all the effort to complete an activity 7 Patient refused to complete or attempt activity 9 The patient did not perform the activity before the current illness or injury 88 Not attempted due to Medical conditions or safety concerns Transfers (B, C, W/C) (FIM): 5 Scootin Sit to/from Stand: 5 Sit to Lying (QC): 5 Sit to Stand (QC): 5 Gait Training Does the Patient Walk?: Yes Gait (FIM): 5 Distance (FIM): 3=150 ft Distance: 250' Walk 50 ft with 2 Turns(QC): 5 Walk 150 ft (QC): 5 Gait Level of Assist: 5 Gait Persons Needed: 1 Gait Assistive Device: FWW slow, steady, functional with FWW Assessment Patient returned to room and up in recliner with needs met. PT to increase activity as tolerated by patient. PT Quality Rn Goals Halfway Goals PT Quality Rn Goals Time Frame: Nov 30, 2016 Transfers (B,C,W/C) (FIM): 6 Sit to Lying (QC): 5 Lying-Sitting on Side/Bed(QC): 5 Sit to Stand (QC): 5 Rollin Does the Patient Walk: Yes Gait (FIM): 2 Gait distance (FIM): 0=398-77 ft Distance: 75' Walk 50ft with 2 Turns (QC): 5 Gait Level of Assist: 5 Gait Assistive Device: FWW PT Plan Treatment/Plan Treatment Plan: Continue Plan of Care Treatment Plan: Education, Functional Activity Lg, Functional Strength, Gait , Safety, Therapeutic Exercise, Transfers Treatment Duration: Nov 30, 2016 Visits Per Week: 6 Minutes/Day (M-F): 15-30 Minutes/Day (Sat/Null): PRN Time/GCodes Time In: 1445 Time Out: 1500 Total Billed Treatment Time: 15 Total Billed Treatment 1 visit FA 15 min VALDEMAR ONEAL PT Nov 21, 2016 15:14
[2016-11-21 17:03] VITALS: BP 128/71
[2016-11-21] MEDS: CATHETER FLUSH 10 ML SYR IV PRN (21:31)
[2016-11-22 06:00] VITALS: BP 130/88
[2016-11-22] MEDS: FUROSEMIDE 40 MG (LASIX) TAB PO SCH (06:26)
[2016-11-22] MEDS: PIPERACILLIN/TAZOBACTAM 4.5 GM/NS 100 ML IV SCH ×6 (06:26→21:32)
--- NOTE | 2016-11-22 07:37 | Pulmonary Progress Note ---
Subjective Subjective/Events-last exam No complications noted. Exam Exam Vital Signs Date Time Temp Pulse Resp B/P (MAP) Pulse Ox O2 Delivery O2 Flow Rate FiO2 11/22/16 06:00 97.1 82 22 130/88 95 Nasal Cannula 3.50 11/21/16 21:51 92 3.00 11/21/16 19:30 97.1 11/21/16 17:03 96.4 80 20 128/71 95 Nasal Cannula 3.00 11/21/16 13:45 74 11/21/16 07:52 95 3.00 I & O 11/22/16 07:00 Intake Total 2100 ml Output Total 1975 ml Balance 125 ml General Appearance: No Apparent Distress, Chronically ill, Obese Respiratory: Chest Non Tender, No Accessory Muscle Use, No Respiratory Distress , Other (chest is much clearer anteriorly breath sounds are diminished posteriorly. No wheezing is noted there is increased air movement generally.) Cardiovascular: Regular Rate, Rhythm (frequent prematurity's are noted), No Gallop, No Murmur, Other (3+ chronic pretibial and pedal edema is present.) Results Lab Laboratory Tests 11/21/16 05:25 Assessment/Plan Assessment/Plan -Acute respiratory failure -CXR is improved PNA Enterobacter - resolving - Zosyn Morbid obesity Debility -PT/OT -Up to chair BRAXTON SO DO Nov 22, 2016 07:37
[2016-11-22] MEDS: RT-ALBUTEROL/IPRATROPIUM 3 ML (DUONEB) VIAL INH SCH ×3 (07:45→19:22)
[2016-11-22] MEDS: KCL 10 MEQ TAB (MICRO K) PO SCH (08:43)
[2016-11-22] MEDS: ASPIRIN E.C. 81 MG (ECOTRIN) TAB PO SCH (08:44)
[2016-11-22] MEDS: methylPREDNISolone 40 MG/ML (Solu-MEDROL) VIAL IV SCH ×2 (08:44→21:32)
[2016-11-22] MEDS: TOLTERODINE LA 4 MG (DETROL) CAP PO SCH (08:44)
--- NOTE | 2016-11-22 10:58 | Physical Therapy Daily Note ---
PT Daily Note-Current Subjective Patient is in recliner and agrees to PT. Pain Numeric Pain Scale: 0-No Pain Location: No Pain Reported Mental Status Patient Orientation: Confused Attachments: Oxygen, IV Transfers Functional [place] Measure 0=Not Assessed/NA 4=Minimal Assistance 1=Total Assistance 5=Supervision or Setup 2=Maximal Assistance 6=Modified [place] 3=Moderate Assistance 7=Complete IndependenceIRFPAI Quality Coding Scale 6 Independent with activity with or without an assistive device 5 Patient requires set up or clean up by helper. Patient completes activity by themselves 4 Supervision or touching assist (CGA). [place] provide cues , steadying assist 3 The helper provides less than half the effort to complete the activity 2 The helper provides more than half the effort to complete the activity 1 Dependent. The helper does all the effort to complete an activity 7 Patient refused to complete or attempt activity 9 The patient did not perform the activity before the current illness or injury 88 Not attempted due to Medical conditions or safety concerns Transfers (B, C, W/C) (FIM): 5 Scootin Sit to/from Stand: 5 Sit to Stand (QC): 5 Gait Training Does the Patient Walk?: Yes Gait (FIM): 4 Distance (FIM): 3=150 ft Distance: 175' Walk 50 ft with 2 Turns(QC): 4 Walk 150 ft (QC): 4 Gait Level of Assist: 4 Gait Persons Needed: 1 Gait Assistive Device: FWW functional gait sequence; CGA for safety Exercises Seated Therapy Exercises: Ankle pumps, Long arc quads, Hip flexion Seated Reps: 15 Assessment Patient tolerated treatment and transferred to shower bench for nursing to assist with a shower. Pt to continue with POC. Patient continues with increase SOA with O2 in place at all time. PT Sap Bpc Developer Goals Fpc Goals PT Fpc Goals Time Frame: Nov 30, 2016 Transfers (B,C,W/C) (FIM): 6 Sit to Lying (QC): 5 Lying-Sitting on Side/Bed(QC): 5 Sit to Stand (QC): 5 Rollin Does the Patient Walk: Yes Gait (FIM): 2 Gait distance (FIM): 5=551-68 ft Distance: 75' Walk 50ft with 2 Turns (QC): 5 Gait Level of Assist: 5 Gait Assistive Device: FWW PT Plan Treatment/Plan Treatment Plan: Continue Plan of Care Treatment Plan: Education, Functional Activity Lg, Functional Strength, Gait , Safety, Therapeutic Exercise, Transfers Treatment Duration: Nov 30, 2016 Visits Per Week: 6 Minutes/Day (M-F): 15-30 Minutes/Day (Sat/Null): PRN Time/GCodes Time In: 1000 Time Out: 1023 Total Billed Treatment Time: 23 Total Billed Treatment 1 visit GT 15 min EX 8 min VALDEMAR ONEAL PT Nov 22, 2016 10:57
--- NOTE | 2016-11-22 12:46 | Occupational Ther Daily Note ---
OT Current Status-Daily Note Subjective Pt asleep in recliner, woke to name. Pt agreed to therapy. No c/o pain. Mental Status/Objective Patient Orientation: Person Functional [place] Measure 0=Not Assessed/NA 4=Minimal Assistance 1=Total Assistance 5=Supervision or Setup 2=Maximal Assistance 6=Modified [place] 3=Moderate Assistance 7=Complete [place] Attachments: Oxygen ADL-Treatment Functional [place] Measure 0=Not Assessed/NA 4=Minimal Assistance 1=Total Assistance 5=Supervision or Setup 2=Maximal Assistance 6=Modified [place] 3=Moderate Assistance 7=Complete IndependenceIRFPAI Quality Coding Scale 6 Independent with activity with or without an assistive device 5 Patient requires set up or clean up by helper. Patient completes activity by themselves 4 Supervision or touching assist (CGA). [place] provide cues , steadying assist 3 The helper provides less than half the effort to complete the activity 2 The helper provides more than half the effort to complete the activity 1 Dependent. The helper does all the effort to complete an activity 7 Patient refused to complete or attempt activity 9 The patient did not perform the activity before the current illness or injury 88 Not attempted due to Medical conditions or safety concerns Other Treatment Pt able to complete UE exercises against gravity, 10 reps each. Pt then was able to complete set up of own lunch. Pt demonstrated hand and finger strength to open resistive packages then sustain grasp without spillage when bring spoon full of liquid to mouth. After therapy, pt finishing lunch sitting in recliner. Call light/phone in reach. All needs met in room. OT Short Term Goals Short Term Goals 1=Demonstrate adherence to instructed precautions during ADL tasks. 2=Patient will verbalize/demonstrate understanding of assistive devices/ modifications for ADL. 3=Patient will improve strength/tolerance for activity to enable patient to perform ADL's. OT Bleach Liquor Maker Goals Group Home Goals Time Frame: Dec 02, 2016 Eating (FIM): 6 Eating (QC): 6 Groomin Oral Hygiene (QC): 6 Bathing(FIM): 5 Upper Body Dressing(FIM): 6 Lower Body Dressing(FIM): 6 Toileting(FIM): 5 Toileting Hygiene (QC): 5 Toilet/Commode Transfer(FIM): 6 Toilet/Commode Transfer (QC): 6 Additional Goals: 1-Demonstrate ADL Tasks, 2-Verbalize Understanding, 3- ImproveStrength/Lg 1=Demonstrate adherence to instructed precautions during ADL tasks. 2=Patient will verbalize/demonstrate understanding of assistive devices/ modifications for ADL. 3=Patient will improve strength/tolerance for activity to enable patient to perform ADL's. OT Education/Plan Problem List/Assessment Pt to benefit from skilled OT intervention for ADL training, transfers, strengthening, and safety education to maximize level of function and allow safe discharge. Discharge Recommendations Plan/Recommendations: Continue POC Treatment Plan/Plan of Care Patient would benefit from OT for education, treatment and training to promote independence in ADL's, mobility, safety and/or upper extremity function for ADL' s. Plan of Care: ADL Retraining, Functional Mobility, UE Funct Exercise/Act Treatment Duration: Dec 02, 2016 Visits Per Week: 5 Agreement: Yes Rehab Potential: Fair Time/GCodes Start Time: 11:30 Stop Time: 11:45 Total Time Billed (hr/min): 15 Billed Treatment Time 1 visit-FA 1 (15 min) NORBERTO NIÑO Nov 22, 2016 12:46
--- NOTE | 2016-11-22 16:51 | Wound Care Progress Note ---
Subjective Subjective Subjective/Events-last exam 86 year old male with venous ulceration of L leg, admitted for respiratory problems. Refuses to lay in bed. Told that he must elevate to help wounds. PMH: CHF, COPD. Review of Systems Pulmonary: Dyspnea Cardiovascular: Chest Pain Objective Exam Last Set of Vital Signs Vital Signs Date Time Temp Pulse Resp B/P (MAP) Pulse Ox O2 Delivery O2 Flow Rate FiO2 11/22/16 15:30 95 4.00 11/22/16 09:00 Nasal Cannula 11/22/16 06:00 97.1 82 22 130/88 Capillary Refill : I&O Intake and Output 11/22/16 00:00 Intake Total 2400 ml Output Total 1700 ml Balance 700 ml Intake Oral 2170 ml IV Total 230 ml Output Urine Total 1700 ml # Voids 3 General: Alert, No Acute Distress Lungs: Normal Air Movement Skin: Other (L anterior calf -- 1.9 x 2.3 x 0.3 cm, base 100 slough. L posterior calf -- 2.4 x 4.3 x 0.4 cm, base 100% alough, large amount of seous drainage.) Assessment/Plan Assessment/Plan Assessment/Plan 1. Venous ulceration L leg x 2. 2. Congestive heart failure. 3. Non-compliance with elevation. Plan: Have encouraged patient to elevate. AgAlginate dressings ordered. AWILDA AZEVEDO MD Nov 22, 2016 4:51 pm
[2016-11-22 17:36] VITALS: BP 110/63
[2016-11-23] MEDS: PIPERACILLIN/TAZOBACTAM 4.5 GM/NS 100 ML IV SCH ×4 (05:15→14:21)
[2016-11-23 05:38] VITALS: BP 110/68
[2016-11-23] MEDS: FUROSEMIDE 40 MG (LASIX) TAB PO SCH (06:37)
[2016-11-23] MEDS: RT-ALBUTEROL/IPRATROPIUM 3 ML (DUONEB) VIAL INH SCH ×3 (07:05→19:38)
[2016-11-23] MEDS: ASPIRIN E.C. 81 MG (ECOTRIN) TAB PO SCH (08:20)
[2016-11-23] MEDS: methylPREDNISolone 40 MG/ML (Solu-MEDROL) VIAL IV SCH ×2 (08:20→19:58)
[2016-11-23] MEDS: KCL 10 MEQ TAB (MICRO K) PO SCH (08:20)
[2016-11-23] MEDS: TOLTERODINE LA 4 MG (DETROL) CAP PO SCH (08:20)
--- NOTE | 2016-11-23 09:19 | Pulmonary Progress Note ---
Subjective Subjective/Events-last exam PT seems confused but alert. Exam Exam Vital Signs Date Time Temp Pulse Resp B/P (MAP) Pulse Ox O2 Delivery O2 Flow Rate FiO2 11/23/16 07:05 4.00 11/23/16 05:38 96.4 75 18 110/68 98 Nasal Cannula 4.00 11/22/16 22:30 99 Nasal Cannula 4.00 11/22/16 19:30 Nasal Cannula 4.00 11/22/16 19:24 96 4.00 11/22/16 17:36 97.1 75 20 110/63 96 Nasal Cannula 3.50 11/22/16 15:30 95 4.00 I & O 11/23/16 07:00 Intake Total 1800 ml Output Total 900 ml Balance 900 ml General Appearance: No Apparent Distress, Chronically ill, Obese Respiratory: Chest Non Tender, No Accessory Muscle Use, No Respiratory Distress , Other (chest is much clearer anteriorly breath sounds are diminished posteriorly. No wheezing is noted there is increased air movement generally.) Cardiovascular: Regular Rate, Rhythm (frequent prematurity's are noted), No Gallop, No Murmur, Other (3+ chronic pretibial and pedal edema is present.) Assessment/Plan Assessment/Plan -Acute respiratory failure -CXR is improved PNA Enterobacter - resolving - Zosyn d/c'd Morbid obesity Debility -PT/OT -Up to chair BID Pt ok for discharge from pulmonary standpoint. Probably needs ECF. BRAXTON SILVA DO Nov 23, 2016 09:19
--- NOTE | 2016-11-23 10:33 | Progress Note-Hospitalist ---
Progress Note Progress Notes/Assess & Plan Date Seen 11/23/16 Diagonsis/Assessment & Plan Chart Review: No fever Vitals stable WBC 12 on 11/21 Creat 1.65 Zosyn last day today still on Solumedrol CXR 11/[address] Galicia Review: Dr. Galicia suggests a short Prednisone taper, and continued Neb treatments. SW Review: Pt considering going to [facility] post DC, and SW is discussion options with pts son. Pt not complying with leg elevation Pt concerned regarding congestion in chest Patient Interview: Pt is unsure of how his is progressing. Dr. Anders informs pt that he is doing well, but will require continued medication, possible home O2, and possible [facility] care during recovery as suggested by Dr. Phillips. Pt would like to speak with his son more regarding the NH care. Pt's PCP is Dr. Tatum. Physical exam stable. Pt reports regular BMs, and has no complications with urination. Pt denies having pain currently. 1. Acute on chronic hypercapnic respiratory failure due to pneumonia growing Enterobacter completing IV antibiotics and bronchodilator therapy. 2. Acute on chronic systolic failure compensated. 3. Leg and foot wounds 4. Severe debility 5. Cognitive decline Plan: DC Zosyn after today Home O2 eval Possible DC to NH on skilled today Short Prednisone taper per Dr. Galicia upon DC Maintain Neb treatments TID Scribed by Evelio Amaya under the direct supervision of Dr. Anders. ZAHIDA ANDERS DO Nov 23, 2016 10:33
--- NOTE | 2016-11-23 10:35 | Physical Therapy Daily Note ---
PT Daily Note-Current Subjective Patient on toilet pre tx, agrees to PT, no complaints of pain. Patient did not have a BM and did not need cleaned. Appearance Patient in shower on bench post tx, nurse aide in room ready to take over for shower. Mental Status Patient Orientation: Person, Place, Situation Attachments: Oxygen Transfers Functional [place] Measure 0=Not Assessed/NA 4=Minimal Assistance 1=Total Assistance 5=Supervision or Setup 2=Maximal Assistance 6=Modified [place] 3=Moderate Assistance 7=Complete IndependenceIRFPAI Quality Coding Scale 6 Independent with activity with or without an assistive device 5 Patient requires set up or clean up by helper. Patient completes activity by themselves 4 Supervision or touching assist (CGA). [place] provide cues , steadying assist 3 The helper provides less than half the effort to complete the activity 2 The helper provides more than half the effort to complete the activity 1 Dependent. The helper does all the effort to complete an activity 7 Patient refused to complete or attempt activity 9 The patient did not perform the activity before the current illness or injury 88 Not attempted due to Medical conditions or safety concerns Transfers (B, C, W/C) (FIM): 4 Sit to/from Stand: 4 Patient needs min assist to stand from the toilet and other low surfaces, he does not need assist from the recliner. Gait Training Gait (FIM): 2 Distance: 100' Gait Level of Assist: 4 Gait Persons Needed: 1 Gait Assistive Device: FWW CGA, patient walked back and forth in his room due to his contact precautions. He had been walking further but has had a lot of activity in his room this morning and he states he is pretty worn out. Exercises Seated Therapy Exercises: Ankle pumps, Long arc quads, Hip flexion Seated Reps: 20 Treatments transfers, ambulation, functional strengthening Assessment Current Status: Poor Progress no change in mobility since yesterday. PT Shelter Goals Welcome Desk Agent Goals PT Shelter Goals Time Frame: Nov 30, 2016 Transfers (B,C,W/C) (FIM): 6 Sit to Lying (QC): 5 Lying-Sitting on Side/Bed(QC): 5 Sit to Stand (QC): 5 Rollin Does the Patient Walk: Yes Gait (FIM): 2 Gait distance (FIM): 0=237-36 ft Distance: 75' Walk 50ft with 2 Turns (QC): 5 Gait Level of Assist: 5 Gait Assistive Device: FWW PT Plan Problem List Problem List: Activity Tolerance, Functional Strength, Safety, Balance, Gait, Transfer Treatment/Plan Treatment Plan: Continue Plan of Care Treatment Plan: Education, Functional Activity Lg, Functional Strength, Gait , Safety, Therapeutic Exercise, Transfers Treatment Duration: Nov 30, 2016 Visits Per Week: 6 Minutes/Day (M-F): 15-30 Minutes/Day (Sat/Null): PRN Safety Risks/Education Patient Education: Gait Training, Transfer Techniques, Correct Positioning, Safety Issues Teaching Recipient: Patient Teaching Methods: Demonstration, Discussion Response to Teaching: Reinforcement Needed Time/GCodes Time In: 955 Time Out: 1010 Total Billed Treatment Time: 15 Total Billed Treatment 1 visit GT 15 min JOHAN RODRÍGUEZ PT Nov 23, 2016 10:35
--- NOTE | 2016-11-23 10:37 | Occupational Ther Daily Note ---
OT Current Status-Daily Note Subjective Pt alert, sitting up in recliner. Pt distressed about visit he had with rn social work. He had many questions/concerns and was worried about the plan and wanted reassured that he would have a place to go. LUONG reassured pt that they will have a plan in place when he leaves the hospital. Mental Status/Objective Patient Orientation: Person, Place, Time, Situation Functional [place] Measure 0=Not Assessed/NA 4=Minimal Assistance 1=Total Assistance 5=Supervision or Setup 2=Maximal Assistance 6=Modified [place] 3=Moderate Assistance 7=Complete [place] Attachments: IV, Oxygen ADL-Treatment Pt able to go sitting to standing from recliner with CGA. Pt ambulated to restroom with SBA using FWW. Transferred to toilet and manipulated hospital gown by self. Pt required total assist to don/doff socks. After therapy, pt sitting on toilet with call light in reach. Pt stated that he needed to sit for longer. All needs met in room. Functional [place] Measure 0=Not Assessed/NA 4=Minimal Assistance 1=Total Assistance 5=Supervision or Setup 2=Maximal Assistance 6=Modified [place] 3=Moderate Assistance 7=Complete IndependenceIRFPAI Quality Coding Scale 6 Independent with activity with or without an assistive device 5 Patient requires set up or clean up by helper. Patient completes activity by themselves 4 Supervision or touching assist (CGA). [place] provide cues , steadying assist 3 The helper provides less than half the effort to complete the activity 2 The helper provides more than half the effort to complete the activity 1 Dependent. The helper does all the effort to complete an activity 7 Patient refused to complete or attempt activity 9 The patient did not perform the activity before the current illness or injury 88 Not attempted due to Medical conditions or safety concerns Toileting (FIM): 5 Transfers (B, C, W/C) (FIM): 4 Toilet/Commode Transfer (FIM): 4 OT Short Term Goals Short Term Goals 1=Demonstrate adherence to instructed precautions during ADL tasks. 2=Patient will verbalize/demonstrate understanding of assistive devices/ modifications for ADL. 3=Patient will improve strength/tolerance for activity to enable patient to perform ADL's. OT Fci Goals Fci Goals Time Frame: Dec 02, 2016 Eating (FIM): 6 Eating (QC): 6 Groomin Oral Hygiene (QC): 6 Bathing(FIM): 5 Upper Body Dressing(FIM): 6 Lower Body Dressing(FIM): 6 Toileting(FIM): 5 Toileting Hygiene (QC): 5 Toilet/Commode Transfer(FIM): 6 Toilet/Commode Transfer (QC): 6 Additional Goals: 1-Demonstrate ADL Tasks, 2-Verbalize Understanding, 3- ImproveStrength/Lg 1=Demonstrate adherence to instructed precautions during ADL tasks. 2=Patient will verbalize/demonstrate understanding of assistive devices/ modifications for ADL. 3=Patient will improve strength/tolerance for activity to enable patient to perform ADL's. OT Education/Plan Problem List/Assessment Pt to benefit from skilled OT intervention for ADL training, transfers, strengthening, and safety education to maximize level of function and allow safe discharge. Discharge Recommendations Plan/Recommendations: Continue POC Treatment Plan/Plan of Care Patient would benefit from OT for education, treatment and training to promote independence in ADL's, mobility, safety and/or upper extremity function for ADL' s. Plan of Care: ADL Retraining, Functional Mobility, UE Funct Exercise/Act Treatment Duration: Dec 02, 2016 Visits Per Week: 5 Agreement: Yes Rehab Potential: Fair Time/GCodes Start Time: 09:40 Stop Time: 09:55 Total Time Billed (hr/min): 15 Billed Treatment Time 1 visit-FA 1 (15 min) NORBERTO NIÑO Nov 23, 2016 10:37
[2016-11-23] MEDS ORDERED: IPRA3AMP INH (11:11)
[2016-11-23] MEDS ORDERED: PRED10TA22 PO (11:11)
[2016-11-23] MEDS ORDERED: ENALAPRIL 5 MG (VASOTEC) TAB PO NR (13:30)
--- NOTE | 2016-11-23 13:38 | Cardiology Progress Note ---
Subjective Subjective/Events-last exam patient is sitting in a chair, still having some shortness of breath. Reporting improvement, possible discharge tomorrow Objective-Cardiology Exam Last Set of Vital Signs Vital Signs 11/23/16 11/23/16 11/23/16 05:38 09:00 12:29 Temp 96.4 Pulse 75 Resp 18 B/P (MAP) 110/68 Pulse Ox 96 O2 Delivery Nasal Cannula O2 Flow Rate 4.00 Capillary Refill : I&O Bad tableGeneral: Alert, Cooperative, No Acute Distress HEENT: Atraumatic, PERRLA Neck: Supple, No JVD, No Thyromegaly Lungs: Normal Air Movement Heart: Regular Rate, Normal S1, Normal S2, No Murmurs Abdomen: Normal Bowel Sounds, Soft, No Tenderness, No Hepatosplenomegaly, No Masses Extremities: No Clubbing, No Cyanosis, No Edema, Normal Pulses, No Tenderness/ Swelling Skin: Other (L anterior calf -- 1.9 x 2.3 x 0.3 cm, base 100 slough. L posterior calf -- 2.4 x 4.3 x 0.4 cm, base 100% alough, large amount of seous drainage.) Neuro: Normal Gait, Normal Speech, Strength at 5/5 X4 Ext, Normal Tone, Sensation Intact Psych/Mental Status: Mental Status NL, Mood NL A/P-Cardiology Admission Diagnosis Acute respiratory failure Pneumonia Congestive heart failure, chronic compensated left ventricular systolic dysfunction, nonischemic cardiac myopathy Sick sinus syndrome Assessment/Plan Status post acute respiratory failure secondary to pneumonia, improved, feeling better. Possible discharge tomorrow Acute on chronic left ventricular systolic dysfunction, nonischemic cardiomyopathy, restart enalapril, start beta booker and evaluate tolerance and response. Echo of 11/15/16: LVEF 30%, global hypokinesis that is more marked in the posterobasal wall, mild to mod TR & MR & AI, aortic valve sclerosis with mild aortic stenosis (peak grad 20 mmHg and valve area 1.8 sq cm), PASP approx 50-55 mmHg Acute on chronic renal failure. 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 Gating could not be carried out due to multiple and frequent premature ventricular contractions. Per MPI of March 2016 Marked chronic venous insufficiency with bilateral leg swelling and stasis dematitis H/o cellulitis in of his leg which is being followed by Dr. 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
[2016-11-23 18:16] VITALS: BP 110/55
[2016-11-23] MEDS: CATHETER FLUSH 10 ML SYR IV PRN (19:58)
[2016-11-24 05:58] VITALS: BP 130/70
[2016-11-24] MEDS: FUROSEMIDE 40 MG (LASIX) TAB PO SCH (06:19)
[2016-11-24] MEDS: TOLTERODINE LA 4 MG (DETROL) CAP PO SCH (08:03)
[2016-11-24] MEDS: KCL 10 MEQ TAB (MICRO K) PO SCH (08:03)
[2016-11-24] MEDS: methylPREDNISolone 40 MG/ML (Solu-MEDROL) VIAL IV SCH (08:04)
[2016-11-24] MEDS: ASPIRIN E.C. 81 MG (ECOTRIN) TAB PO SCH (08:04)
--- NOTE | 2016-11-24 08:28 | Pulmonary Progress Note ---
Subjective Subjective/Events-last exam No complications noted. Exam Exam Vital Signs Date Time Temp Pulse Resp B/P (MAP) Pulse Ox O2 Delivery O2 Flow Rate FiO2 11/24/16 05:58 98.4 77 18 130/70 90 Nasal Cannula 4.00 11/23/16 20:05 Nasal Cannula 4.00 11/23/16 19:39 97 3.00 11/23/16 18:16 97.1 80 18 110/55 98 Nasal Cannula 4.00 11/23/16 15:34 94 3.00 11/23/16 12:29 96 4.00 11/23/16 09:00 97 Nasal Cannula 4.00 I & O 11/24/16 07:00 Intake Total 2270 ml Output Total 1050 ml Balance 1220 ml General Appearance: No Apparent Distress, Chronically ill, Obese Respiratory: Chest Non Tender, No Accessory Muscle Use, No Respiratory Distress , Other (chest is much clearer anteriorly breath sounds are diminished posteriorly. No wheezing is noted there is increased air movement generally.) Cardiovascular: Regular Rate, Rhythm (frequent prematurity's are noted), No Gallop, No Murmur, Other (3+ chronic pretibial and pedal edema is present.) Assessment/Plan Assessment/Plan -Acute respiratory failure -CXR is improved PNA Enterobacter - resolving - Zosyn d/c'd Morbid obesity Debility -PT/OT -Up to chair BID Pt ok for discharge from pulmonary standpoint on prednisone taper and SVNs. Probably needs ECF. BRAXTON SILVA DO Nov 24, 2016 08:28
[2016-11-24] MEDS ORDERED: ENALAPRIL 5 MG (VASOTEC) TAB PO SCH (09:00)
[2016-11-24] MEDS: RT-ALBUTEROL/IPRATROPIUM 3 ML (DUONEB) VIAL INH SCH (09:15)
--- NOTE | 2016-11-24 09:46 | Cardiology Progress Note ---
Subjective Subjective/Events-last exam patient is in bed, receiving breathing treatment, no new complaint. Review of Systems General: No Chills, No Night Sweats, No Fatigue, No Malaise, No Appetite, No Other HEENT: No Head Aches, No Visual Changes, No Eye Pain, No Ear Pain, No Dysphasia , No Sinus Congestion, No Post Nasal Drip, No Sore Throat, No Other Pulmonary: No Dyspnea, No Cough, No Pleuritic Chest Pain, No Other Cardiovascular: No: Chest Pain, Edema, Lt Headedness, Orthopnea, Other, Palpitations, Paroxysmal Noc. Dyspnea Objective-Cardiology Exam Last Set of Vital Signs Vital Signs 11/24/16 11/24/16 11/24/16 05:58 09:09 09:15 Temp 98.4 Pulse 77 Resp 18 B/P (MAP) 130/70 Pulse Ox 93 O2 Delivery Nasal Cannula O2 Flow Rate 3.00 Capillary Refill : I&O Intake and Output 11/24/16 00:00 Intake Total 2470 ml Output Total 1050 ml Balance 1420 ml Intake Oral 2370 ml IV Total 100 ml Output Urine Total 1050 ml # Voids 5 General: Alert, Cooperative, No Acute Distress HEENT: Atraumatic, PERRLA Neck: Supple, No JVD, No Thyromegaly Lungs: Normal Air Movement Heart: Regular Rate, Normal S1, Normal S2, No Murmurs Abdomen: Normal Bowel Sounds, Soft, No Tenderness, No Hepatosplenomegaly, No Masses Extremities: No Clubbing, No Cyanosis, No Edema, Normal Pulses, No Tenderness/ Swelling Skin: Other (L anterior calf -- 1.9 x 2.3 x 0.3 cm, base 100 slough. L posterior calf -- 2.4 x 4.3 x 0.4 cm, base 100% alough, large amount of seous drainage.) Neuro: Normal Gait, Normal Speech, Strength at 5/5 X4 Ext, Normal Tone, Sensation Intact Psych/Mental Status: Mental Status NL, Mood NL A/P-Cardiology Admission Diagnosis Acute respiratory failure Pneumonia Congestive heart failure, chronic compensated left ventricular systolic dysfunction, nonischemic cardiac myopathy Sick sinus syndrome Assessment/Plan Status post acute respiratory failure secondary to pneumonia, improved, feeling better. Acute on chronic left ventricular systolic dysfunction, nonischemic cardiomyopathy, tolerating medication well. Echo of 11/15/16: LVEF 30%, global hypokinesis that is more marked in the posterobasal wall, mild to mod TR & MR & AI, aortic valve sclerosis with mild aortic stenosis (peak grad 20 mmHg and valve area 1.8 sq cm), PASP approx 50-55 mmHg Acute on chronic renal failure. 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 Gating could not be carried out due to multiple and frequent premature ventricular contractions. Per MPI of March 2016 Marked chronic venous insufficiency with bilateral leg swelling and stasis dematitis H/o cellulitis in of his leg which is being followed by Dr. 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 Martinez as an outpatient ROGELIO BARBOUR MD Nov 24, 2016 09:46
--- NOTE | 2016-11-24 10:37 | Discharge Inst-Skilled Nursing ---
Discharge Inst-Skilled NF Patient Instructions Patient Problems: Volume overload Hypoxia newly O2 dependent COPD Leg ulcers Goal: Strengthen to be able to return to independent living Patient Instructions: Stay in bed and elevate legs when not participating in physical therapy to minimize fluid in legs Consult/Follow Up/Orders Follow Up Appt.: Dr Tatum, Dr Todd, Dr Phillips as ordered Skilled NF Ad[place]: [facility] [place]) I certify that SNF services are required to be given on an inpatient basis because of the above named patient's need for custodial care on a continuing basis for the conditions(s) for which he/she was receiving inpatient hospital services prior to his/her transfer to the SNF. [facility]ci Facility Order: Nursing Services, Sales Contracts Analyst-Evaluate & Treat, Physical Therapy-Evaluate & Treat, Speech Language-Evaluate & Treat, Wound Care-Eval/Treat Discharge Diet: Low Sodium Diet, Cardiac Diet Daily Activity as Tolerated: Yes New & Resume Previous Orders New Medications: Prednisone (Prednisone) 10 Mg Tab.ds.pk 10 MG PO DAILY, #21 PKG Take 6 tabs(60mg)daily,decrease by 1 tab(10MG)daily. Ipratropium/Albuterol Sulfate (Iprat-Albut 0.5-3(2.5) mg/3 ml) 3 Ml Ampul.neb 3 ML INH RTTID for 30 Days, INHALER Continued Medications: Aspirin (Aspir 81) 81 Mg Tablet.dr 81 MG PO DAILY, TAB Furosemide (Furosemide) 80 Mg Tablet 80 MG PO DAILY Potassium Chloride (Klor-Con M10) 10 Meq Tab.er.prt 10 MEQ PO DAILY Tolterodine Tartrate (Detrol LA) 4 Mg Cap 4 MG PO DAILY, CAP [Silver Alginate] () TP DAILY Discontinued Medications: Ampicillin Trihydrate (Ampicillin Trihydrate) 500 Mg Capsule 500 MG PO TID, CAP FILLED 11/01/16 #42 FOR A 14 DAY THERAPY Doxycycline Monohydrate (Doxycycline Monohydrate) 100 Mg Capsule 100 MG PO BID FILLED 11/01/16 #28 FOR A 14 DAY THERAPY Enalapril Maleate (Enalapril Maleate) 5 Mg Tablet 5 MG PO DAILY Latoya Anders Nov 24, 2016 10:35 LATOYA ANDERS DO Nov 24, 2016 10:37
--- NOTE | 2016-11-24 10:48 | Discharge Summary-Hospitalist ---
Diagnosis/Chief Complaint Date of Admission Nov 18, 2016 at 11:31 Date of Discharge Discharge Date: Nov 24, 2016 Discharge Diagnosis Chart Review: No fever Vitals stable WBC 12 on 11/21 Creat 1.65 Zosyn last day today still on Solumedrol CXR 11/[address] Galicia Review: Dr. Galicia suggests a short Prednisone taper, and continued Neb treatments. SW Review: Pt considering going to senior care post DC, and SW is discussion options with pts son. Pt not complying with leg elevation Pt concerned regarding congestion in chest Patient Interview: Pt is unsure of how his is progressing. Dr. Anders informs pt that he is doing well, but will require continued medication, possible home O2, and possible senior care care during recovery as suggested by Dr. Phillips. Pt would like to speak with his son more regarding the NH care. Pt's PCP is Dr. Tatum. Physical exam stable. Pt reports regular BMs, and has no complications with urination. Pt denies having pain currently. 1. Acute on chronic hypercapnic respiratory failure due to pneumonia growing Enterobacter completing IV antibiotics and bronchodilator therapy. 2. Acute on chronic systolic failure compensated. 3. Leg and foot wounds 4. Severe debility 5. Cognitive decline Plan: DC Zosyn after today Home O2 eval Possible DC to NH on skilled today Short Prednisone taper per Dr. Galicia upon DC Maintain Neb treatments TID Scribed by Evelio Amaya under the direct supervision of Dr. Anders. Reason Hospital Visit/Course Notes from 11/24/16 Patient Interview: Pt states that he is ready to return home. Dr. Anders informs pt that he will require home O2, and will continue Neb treatments post DC. Physical exam stable. Pt reports regular BMs. 1. Acute on chronic hypercapnic respiratory failure due to pneumonia growing Enterobacter completing IV antibiotics and bronchodilator therapy. 2. Acute on chronic systolic failure compensated. 3. Leg and foot wounds 4. Severe debility 5. Cognitive decline Plan: 5L continuous O2 Maintain Neb treatments post DC. Scribed by Evelio Amaya under the direct supervision of Dr. Anders. Hospital course: Patient had a lengthy swing bed course due to continuing IV antibiotics IV Lasix and oxygen supplementation along with nebulizer treatments. Overall he improved that he is considered end-stage and likely will require multiple readmissions and there is no way to modify that and decrease the chance and ultimately he will likely require hospice therapy but we will try to support him in anyway possible obtain skilled therapy with the senior care maintain oxygen at 5 L of oxygen continuously we will keep the legs elevated to minimize the edema to facilitate healing of the ulcers and close follow-up with Dr. Todd, Dr. Tatum, and Dr. Phillips. Discharge Summary Discharge Physical Examination Allergies: Coded Allergies: No Known Drug Allergies (Unverified , 11/18/16) Vitals & I&Os Vital Signs Date Time Temp Pulse Resp B/P (MAP) Pulse Ox O2 Delivery O2 Flow Rate FiO2 11/24/16 09:30 Nasal Cannula 3.00 11/24/16 09:09 93 11/24/16 05:58 98.4 77 18 130/70 Discharge Home Medications: Active Scripts Active Prednisone 10 Mg Tab.ds.pk 10 Mg PO DAILY Take 6 tabs(60mg)daily,decrease by 1 tab(10MG)daily. Iprat-Albut 0.5-3(2.5) mg/3 ml (Ipratropium/Albuterol Sulfate) 3 Ml Ampul.neb 3 Ml INH RTTID 30 Days Reported Detrol LA (Tolterodine Tartrate) 4 Mg Cap 4 Mg PO DAILY [Silver Alginate] TP DAILY Enalapril Maleate 5 Mg Tablet 5 Mg PO DAILY Furosemide 80 Mg Tablet 80 Mg PO DAILY Klor-Con M10 (Potassium Chloride) 10 Meq Tab.er.prt 10 Meq PO DAILY Doxycycline Monohydrate 100 Mg Capsule 100 Mg PO BID FILLED 11/01/16 #28 FOR A 14 DAY THERAPY Aspir 81 (Aspirin) 81 Mg Tablet.dr 81 Mg PO DAILY Ampicillin Trihydrate 500 Mg Capsule 500 Mg PO TID FILLED 11/01/16 #42 FOR A 14 DAY THERAPY Instructions to patient/family Please see electonic discharge instructions given to patient. ZAHIDA ANDERS DO Nov 24, 2016 10:48
--- NOTE | 2016-11-24 11:34 | Therapy Team Discharge Summary ---
Therapy Discharge Summary Discharge Recommendations Date of Discharge Therapy D/C Recommendations: Physical Therapy Home Care Physical Therapy Patient to dismiss to NH for continued care. Patient currently is CGA to SBA with mobility for safety with O2 and FWW. Patient sleeps in lift chair at home PLOF and ambulates short distances in the home. Patient upon evaluation was SBA with mobility and ambulated in the room (~50'') with FWW and O2. Patient is slowly progressing and will benefit from further skilled therapies. PT Correction Goals Manufacturing Production Manager Goals PT Correction Goals Time Frame: Nov 30, 2016 Transfers (B,C,W/C) (FIM): 6 Sit to Lying (QC): 5 Lying-Sitting on Side/Bed(QC): 5 Sit to Stand (QC): 5 Rollin Does the Patient Walk: Yes Gait (FIM): 2 (met 11/22/16) Gait distance (FIM): 7=933-83 ft Distance: 75' Walk 50ft with 2 Turns (QC): 5 (met 11/22/16) Gait Level of Assist: 5 (met 11/12/16) Gait Assistive Device: FWW OT Manufacturing Production Manager Goals Correction Goals Time Frame: Dec 02, 2016 Eating (FIM): 6 Eating (QC): 6 Groomin Oral Hygiene (QC): 6 Bathing(FIM): 5 Upper Body Dressing(FIM): 6 Lower Body Dressing(FIM): 6 Toileting(FIM): 5 Toileting Hygiene (QC): 5 Toilet/Commode Transfer(FIM): 6 Toilet/Commode Transfer (QC): 6 Additional Goals: 1-Demonstrate ADL Tasks, 2-Verbalize Understanding, 3- ImproveStrength/Lg 1=Demonstrate adherence to instructed precautions during ADL tasks. 2=Patient will verbalize/demonstrate understanding of assistive devices/ modifications for ADL. 3=Patient will improve strength/tolerance for activity to enable patient to perform ADL's. VALDEMAR ONEAL PT Nov 24, 2016 11:34
--- NOTE | 2016-11-24 14:39 | Therapy Team Discharge Summary ---
Therapy Discharge Summary Discharge Recommendations Date of Discharge Nov 24, 2016 at 11:40 Therapy D/C Recommendations: Physical Therapy Home Care Occupational Therapy Pt admitted to [facility] status following acute hospitalization for pneumonia/CHF. On admission pt required minimal assistance for transfers and SBA for grooming and feeding. Skilled OT intervention focused on ADL training, transfers, and strengthening. Pt progressing with therapy, but has not met LTG. Pt currently requires CGA for transfers and SBA for toileting. Pt is being discharged to SNF for continued care. D/C SWB OT at this time. PT Phlebotomy Instructor Goals Phlebotomy Instructor Goals PT Phlebotomy Instructor Goals Time Frame: Nov 30, 2016 Transfers (B,C,W/C) (FIM): 6 Sit to Lying (QC): 5 Lying-Sitting on Side/Bed(QC): 5 Sit to Stand (QC): 5 Does the Patient Walk: Yes Gait (FIM): 2 (met 11/22/16) Gait distance (FIM): 9=196-08 ft Distance: 75' Walk 50ft with 2 Turns (QC): 5 (met 11/22/16) Gait Level of Assist: 5 (met 11/12/16) Gait Assistive Device: FWW OT Retirement Goals Phlebotomy Instructor Goals Time Frame: Dec 02, 2016 Eating (FIM): 6 Eating (QC): 6 Oral Hygiene (QC): 6 Grooming(FIM): 6 Bathing(FIM): 5 Upper Body Dressing(FIM): 6 Lower Body Dressing(FIM): 6 Toileting(FIM): 5 Toileting Hygiene (QC): 5 Toilet/Commode Transfer(FIM): 6 Toilet/Commode Transfer (QC): 6 Additional Goals: 1-Demonstrate ADL Tasks, 2-Verbalize Understanding, 3- ImproveStrength/Lg 1=Demonstrate adherence to instructed precautions during ADL tasks. 2=Patient will verbalize/demonstrate understanding of assistive devices/ modifications for ADL. 3=Patient will improve strength/tolerance for activity to enable patient to perform ADL's. JESSICA SIFUENTES OT Nov 24, 2016 14:39
== END 2016-11-24 11:40 | DRG 189 ==
LOC: 4TH 11:31
PROVIDERS: ADMIT Internal Medicine; ATTEND Internal Medicine
DX: J96.22 Acute and chronic respiratory failure with hypercapnia (principal); J15.6 Pneumonia due to other Gram-negative bacteria; I27.2 Other secondary pulmonary hypertension; I13.0 Hypertensive heart and chronic kidney disease with heart failure and stage 1 through stage 4 chronic kidney disease, or unspecified chronic kidney disease; I50.22 Chronic systolic (congestive) heart failure; I42.9 Cardiomyopathy, unspecified; N18.9 Chronic kidney disease, unspecified; L97.229 Non-pressure chronic ulcer of left calf with unspecified severity; Z66 Do not resuscitate; E66.01 Morbid (severe) obesity due to excess calories; Z68.41 Body mass index [BMI] 40.0-44.9, adult; I87.2 Venous insufficiency (chronic) (peripheral); E78.5 Hyperlipidemia, unspecified; I08.3 Combined rheumatic disorders of mitral, aortic and tricuspid valves; N40.1 Benign prostatic hyperplasia with lower urinary tract symptoms; R35.0 Frequency of micturition; I73.9 Peripheral vascular disease, unspecified; I49.5 Sick sinus syndrome; Z95.0 Presence of cardiac pacemaker; Z87.891 Personal history of nicotine dependence
CPT/HCPCS: 36415; 71020; 80048; 85025; 94640; 94760; 94761

== ENCOUNTER 2016-11-25 23:25 | Inpatient (IN) | payer MEDICARE, OTHER ==
[~2016-11-25] VITALS: Ht 177.8 cm; Wt 119.5 kg
[~2016-11-25 23:25] MED LIST changes: +IPRA3AMP INH; +PRED10TA22 PO
[2016-11-25 23:46] VITALS: BP 106/67
[2016-11-25] MEDS ORDERED: D5W 250 ML (IVPB) 250 ML IV ONE (23:55)
[2016-11-25] MEDS ORDERED: NOREPINEPHRINE 4 MG/4 ML (LEVOPHED) AMP IV ONE (23:56)
[2016-11-25] MEDS ORDERED: PROPOFOL DRIP (ICU) 100 ML IV ONE (23:56)
[2016-11-25] MEDS ORDERED: NS IV 1000 ML 2,000 ML ONE (23:56)
[2016-11-26] VITALS (35 sets, daily range): BP systolic 76–133; BP diastolic 44–90
[2016-11-26] MEDS ORDERED: ETOMIDATE IV SOLN 20 MG/10 ML VIAL ONE
[2016-11-26] MEDS ORDERED: MIDAZOLAM 5 MG/5 ML (VERSED) VIAL ONE
[2016-11-26] MEDS ORDERED: SUCCINYLCHOLINE INJ 100 MG/5 ML SYR ONE
[2016-11-26] MEDS ORDERED: fentaNYL INJECTION 100 MCG/2 ML AMP ONE
[2016-11-26] MEDS ORDERED: NOREPINEPHRINE 4 MG in D5W 250 ML (IVPB) 250 ML IV SCH (00:15)
[2016-11-26 00:18] LABS: ABG OXYGEN SATURATION 94 % (94-100); ABG PCO2 62 MMHG (35-45); ABG PH 7.48 (7.37-7.43); ABG PO2 66 MMHG (79-93); ABG TCO2 47.2 MMOL/L (21.0-31.0); ALLENS TEST YES-POS; PATIENT TEMP 98.8
[2016-11-26 00:20] LABS: ABG HCO3 45 MMOL/L (23-27)
--- NOTE | 2016-11-26 00:22 | ED General ---
General Chief Complaint: Respiratory Problems Stated Complaint: ILLNESS Source of Information: Family, RN/MD, RN Notes Reviewed Exam Limitations: Physical Impairments History of Present Illness Time Seen by Provider: 23:25 Initial Comments Here as transfer from [facility] for septic shock and pneumonia. Patient discharged from here recently for pneumonia [facility] He was better briefly and then worsened acutely. On arrival at outside facility , PCO2 was 104. Patient was placed on BiPAP. Initial labs and workup done at outside facility including lactic acid that was 9.6 with white count of 11.75, hemoglobin 13.6 and platelets of 140. Creatinine was noted to be 1.63 with sodium of 149 and chloride of 93. BNP noted to be 2929. Concerns for bilateral pneumonia at outside facility. Family initially was considering comfort care but then decided to pursue advanced measures including intubation and aggressive therapy to see if he responds. Initial IV bolus of 500 mL at outside hospital done for hypotension and another 1 L of normal saline bolus initiated by EMS on transfer. Pressure did improve with this. On arrival blood pressure low 100s systolic with map greater than 65. Patient arrived on BiPAP with O2 sat in the upper 90s but significant alteration in mental status. Timing/Duration: 12-24 Hours, Getting Worse Severity: Severe Associated Systoms: Shortness of Air, Weakness, Other (altered mental status) Allergies and Home Medications Allergies Coded Allergies: No Known Drug Allergies (Unverified , 11/18/16) Home Medications Aspirin 81 Mg Tablet.dr, 81 MG PO DAILY, (Reported) Furosemide 80 Mg Tablet, 80 MG PO DAILY, (Reported) Ipratropium/Albuterol Sulfate 3 Ml Ampul.neb, 3 ML INH RTTID for 30 Days Prescribed by: ZAHIDA ANDERS on 11/23/16 1111 Potassium Chloride 10 Meq Tab.er.prt, 10 MEQ PO DAILY, (Reported) Prednisone 10 Mg Tab.ds.pk, 10 MG PO DAILY, #21 Take 6 tabs(60mg)daily,decrease by 1 tab(10MG)daily. Prescribed by: ZAHIDA ANDERS on 11/23/16 1111 Tolterodine Tartrate 4 Mg Cap, 4 MG PO DAILY, (Reported) [Silver Alginate] , TP DAILY, (Reported) Constitutional: see HPI, weakness Respiratory: short of breath Other Unable to complete review of systems due to clinical condition Past Iephona-Hqvzyy-Gfftra Hx Patient Social History Smoking Status: Unknown if Ever Smoked Type Used: Cigarettes Former Smoker/When Quit: Mar 31, 1987 Recent Foreign Travel: No Contact w/Someone Who Travel: No Recent Hopitalizations: Yes (broken neck in 2004) Immunizations Up To Date Date of Pneumonia Vaccine: Mar 14, 2015 Seasonal Allergies Seasonal Allergies: No Surgeries HX Surgeries: Yes (NECK SURGERY, HERNIA SX, ) Surgeries: Orthopedic, Pacemaker Respiratory Hx Respiratory Disorders: No Respiratory Disorders: Pneumonia Cardiovascular Hx Cardiac Disorders: Yes ([employer] pacemaker) Cardiac Disorders: Chronic Edema/Swelling, Hypertension, Peripheral Vascular Neurological Hx Neurological Disorders: No Reproductive System Hx Reproductive Disorders: No Genitourinary Hx Genitourinary Disorders: No Genitourinary Disorders: Benign Prostatic Hyperpl, Prostate Problems Gastrointestinal Hx Gastrointestinal Disorders: No Musculoskeletal Hx Musculoskeletal Disorders: Yes (broken neck and broken wrist) Musculoskeletal Disorders: Fractures Endocrine Hx Endocrine Disorders: No HEENT HX ENT Disorders: Yes HEENT Disorders: Cataract Hearing Impairment: Hard of Hearing Cancer Hx Cancer: No Psychosocial Hx Psychiatric Problems: No Integumentary HX Skin/Integumentary Disorder: No (HX OF CELLULITIS) Skin/Integumentary Disorders: Recent Skin Changes Blood Transfusions Hx Blood Disorders: No Reviewed Nursing Assessment Reviewed/Agree w Nursing PMH: Yes Family Medical History Other History per records and family as patient unable to provide information. Family Medial History: Arthritis 19 MOTHER Colon cancer G8 BROTHER G8 SISTER Myocardial infarction G8 BROTHER Physical Exam-Suspected Sepsis Physical Exam Vital Signs Vital Sign - Last 12Hours 11/25/16 23:46 Pulse 83 Resp 16 Pulse Ox 98 FiO2 60 Capillary Refill : General Appearance: Chronically ill, Moderate Distress (respiratory), Obese HEENT: PERRL/EOMI, Pharynx Normal Neck: Non Tender, Supple Respiratory: Crackles (bilateral bases), Respiratory Distress Cardiovascular: No Murmur, Tachycardia Gastrointestinal: Non Tender, Soft Back: No Muscle Spasm, No Vertebral Tenderness Extremity: Normal Capillary Refill, Pedal Edema (2+ bilateral lower extremities to mid tibia. Wound to mid left lower extremity over tibia.), Other (stasis color changes noted to the lower extremities bilateral) Neurologic/Psychiatric: Alert, Oriented x3 Skin: warm/dry, No rash Focused Exam Lactic Acid Level Laboratory Tests Test 11/26/16 00:00 Lumen: triple Central Line Procedure: betadine prep Position: internal jugular (R) Anesthesia: Lidocaine Volume Anesthetic (ccs): 3 Complications: none Post Position: sutured, good blood return, position confirmed w/ CXR Progress Placed via ultrasound guidance times one stick with no complications. Confirmed by x-ray. Date of ETT Placement: Nov 25, 2016 Time of ETT Placement: 2336 Tube Size: 7.50 Medications: Etomidate, Succinylcholine Positive End Tide CO2: Yes Breath Sounds after Intubation: bilateral-equal Intubation Complications: no complications Post Intubation Xray: Yes Progress/Xray Impression: ET tube in good position Progress Tolerated procedure well with no complications. Place via Video scope. Progress/Results/Core Measures Suspected Sepsis SIRS Temperature: Pulse: 83 Respiratory Rate: 16 Blood Pressure 106 /67 Mean: Laboratory Tests 11/26/16 00:00: Results/Orders Lab Results Laboratory Tests Test 11/26/16 00:00 11/26/16 00:09 Range/Units Blood Gas Puncture Site L RAD Blood Gas Patient Temperature 98.8 Arterial Blood pH 7.48 H 7.37-7.43 Arterial Blood Partial Pressure CO2 62 H 35-45 MMHG Arterial Blood Partial Pressure O2 66 L 79-93 MMHG Arterial Blood HCO3 45 *H 23-27 MMOL/L Arterial Blood Total CO2 47.2 H 21.0-31.0 MMOL/L Arterial Blood Oxygen Saturation 94 94-100 % Arterial Blood Base Excess 20.0 H -2.5-2.5 MMOL/L Alex Test YES-POS Blood Gas Ventilator Setting YES Blood Gas Inspired Oxygen 60% My Orders Orders - ALBERTO SHUKLA MD D5w 250 Ml (Ivpb) (Dextrose 5% Water Iv (11/25/16 23:55) Norepinephrine (Levophed) (11/25/16 23:56) Propofol Drip (Icu) (Diprivan Drip (Icu) (11/25/16 23:56) Ns Iv 1000 Ml (Sodium Chloride 0.9%) (11/25/16 23:56) Chest 1 View, Ap/Pa Only (11/26/16 00:05) Comprehensive Metabolic Panel (11/26/16 00:05) Lactic Acid Analyzer (11/26/16 00:05) Arterial Blood Gas (11/26/16 00:05) Propofol Drip (Icu) (Diprivan Drip (Icu) (11/26/16 00:15) D5w 250 Ml (Ivpb) (... W/Norepinephrine (11/26/16 00:15) Ekg Tracing (11/26/16 00:19) Continuous Ekg Monitoring (11/26/16 00:19) Levofloxacin 750 Mg/150 Ml Iv (Levaquin (11/26/16 00:25) Vital Signs/I&O Vital Sign - Last 12Hours 11/25/16 23:46 Pulse 83 Resp 16 Pulse Ox 98 FiO2 60 Capillary Refill : Progress Note : Progress Note Seen and evaluated on arrival by EMS. Intubated times one attempt. The central line placed by me. OG tube and Boothe catheter placed by nursing. Postintubation sedation with Versed and fentanyl. Initiated propofol drip and Levophed drip with good results. IV fluids infusing. Received a total of 1.5 L of fluid and outside facility and in transfer. We will continue 30 mL/kg all of this which will require total of 4000 mL of IV fluid for septic shock. 0040 : I attest focused exam. Blood pressure currently 142/90 with heart rate of 84 and O2 sat 99 percent on bed with rate of 16, tidal volume of 500, PEEP of 5 and FiO2 at 60 percent. 0050: Discussed case with Dr. Mcdonald. She accepts patient for admission, inpatient status, critical condition. Family at bedside and understand the critical nature of the patient. EICU consult for management. Vent rate decreased to 14. ECG Initial ECG Impression Date: Nov 25, 2016 Initial ECG Impression Time: 23:43 Initial ECG Rate: 84 Initial ECG Rhythm: Normal Sinus Comment Sinus rhythm with interventricular conduction delay and intermittent pacing. No evidence of ST elevation DC. Left axis deviation. Similar to previous. Interpreted by me. Diagnostic Imaging Diagonstic Imaging: Xray Plain Films/CT/US/NM/MRI: chest Comments Central line, ET tube and OG tube in good position. Bilateral infiltrates and probable pulmonary edema. Reviewed: Reviewed by Me Departure Communication Time/Spoke to Admitting Phy: 00:50 Impression Impression: Primary Impression: Bilateral pneumonia Qualified Codes: J18.9 - Pneumonia, unspecified organism Additional Impression: Acute hypercapnic respiratory failure Disposition: ADMITTED INPATIENT Condition: Stable Decision to Admit Reason: Admit from ER (General) Decision to Admit/Date: Nov 26, 2016 Time/Decision to Admit Time: 00:50 Departure-Patient Inst. Referrals: INDU MAK MD (PCP/Family) Primary Care Physician ALBERTO SHUKLA MD Nov 26, 2016 00:22
[2016-11-26] MEDS ORDERED: LEVOFLOXACIN 750 MG/150 ML IV 150 ML IV STA (00:25)
[2016-11-26] MEDS: PROPOFOL DRIP (ICU) 100 ML IV SCH ×4 (00:27→15:05)
[2016-11-26 00:30] LABS: ALBUMIN 2.5 G/DL (3.2-4.5); BILIRUBIN,TOTAL 0.8 MG/DL (0.1-1.0); CALCIUM 7.1 MG/DL (8.5-10.1); CREATININE SERUM 1.27 MG/DL (0.60-1.30); POTASSIUM 3.9 MMOL/L (3.6-5.0); TOTAL PROTEIN 4.5 G/DL (6.4-8.2)
[2016-11-26] MEDS ORDERED: NS IV 500 ML 500 ML IV ONE (00:30)
[2016-11-26] MEDS ORDERED: NS IV ONE (00:30)
[2016-11-26] MEDS ORDERED: NS IV 1000 ML 1,000 ML IV ONE (00:47)
[2016-11-26] MEDS ORDERED: NS IV 500 ML 500 ML ONE (02:45)
[2016-11-26] MEDS ORDERED: HYDROCORTISONE 100 MG/2 ML (Solu-CORTEF) VIAL IV ONE (03:15)
[2016-11-26] MEDS ORDERED: RT-ALBUTEROL/IPRATROPIUM 3 ML (DUONEB) VIAL INH PRN (03:30)
[2016-11-26] MEDS: NS IV 1000 ML 1,000 ML IV SCH ×5 (03:39→20:27)
[2016-11-26] MEDS: PANTOPRAZOLE 40 MG/10 ML (PROTONIX) VIAL IV SCH ×3 (03:39→20:31)
[2016-11-26] MEDS: NOREPINEPHRINE 4 MG in D5W 250 ML (IVPB) 250 ML IV SCH ×2 (04:15→13:16)
[2016-11-26 05:41] LABS: BASOPHILS % (AUTO) 0 % (0-10); EOSINOPHILS % (AUTO) 0 % (0-10); LYMPHOCYTES % (AUTO) 12 % (12-44); MEAN CORPUSCULAR HEMOGLOBIN 30 PG (25-34); MEAN CORPUSCULAR HGB CONC 29 G/DL (32-36); MEAN CORPUSCULAR VOLUME 100 FL (80-99); MEAN PLATELET VOLUME 11.6 FL (7.4-10.4); MONOCYTES # (AUTO) 0.7 X 10^3 (0.0-1.0); MONOCYTES % (AUTO) 8 % (0-12); NEUTROPHILS # (AUTO) 6.8 X 10^3 (1.8-7.8); NEUTROPHILS % (AUTO) 80 % (42-75); PLATELET COUNT 102 10^3/uL (130-400); RED CELL DISTRIBUTION WIDTH 16.4 % (10.0-14.5); WHITE BLOOD COUNT 8.4 10^3/uL (4.3-11.0)
[2016-11-26 05:51] LABS: ABG HCO3 40 MMOL/L (23-27); ABG OXYGEN SATURATION 92 % (94-100); ABG PCO2 40 MMHG (35-45); ABG PO2 46 MMHG (79-93); ABG TCO2 41.1 MMOL/L (21.0-31.0); ALLENS TEST YES-POS; PATIENT TEMP 96.7
[2016-11-26] MEDS: POTASSIUM CL 10MEQ/50ML IVPB 50 ML IV SCH (06:00)
[2016-11-26] MEDS: MAGNESIUM 1 GM/100 ML IVPB 100 ML IV SCH (06:00)
[2016-11-26] MEDS: KCL 20 MEQ TAB (K-DUR) PO SCH (06:00)
[2016-11-26] MEDS: RT-ALBUTEROL/IPRATROPIUM 3 ML (DUONEB) VIAL INH SCH ×5 (06:10→22:13)
[2016-11-26 06:11] LABS: BAND NEUTROPHILS 1 %; BASOPHILS % (MANUAL) 0 %; EOSINOPHILS % (MANUAL) 0 %; HYPOCHROMASIA SLIGHT; LYMPHOCYTES % (MANUAL) 13 %; NEUTROPHILS % (MANUAL) 76 %; POLYCHROMASIA SLIGHT; REACTIVE LYMPHOCYTES 4 %
[2016-11-26 06:12] LABS: ANISOCYTOSIS SLIGHT; TARGET CELLS SLIGHT
[2016-11-26 06:20] LABS: ALBUMIN 2.4 G/DL (3.2-4.5); BILIRUBIN,TOTAL 1.1 MG/DL (0.1-1.0); CALCIUM 7.3 MG/DL (8.5-10.1); CREATININE SERUM 1.25 MG/DL (0.60-1.30); MAGNESIUM 1.8 MG/DL (1.8-2.4); PHOSPHORUS 1.4 MG/DL (2.3-4.7); POTASSIUM 3.4 MMOL/L (3.6-5.0); TOTAL PROTEIN 4.4 G/DL (6.4-8.2)
[2016-11-26] MEDS ORDERED: POTASSIUM PHOSPHATE INJ 30 MM in NS (IVPB) 250 ML IV ONE (07:30)
--- NOTE | 2016-11-26 08:15 | History & Physical-Hospitalist ---
HPI History of Present Illness: HPI/Chief Complaint this is an 86-year-old white male who was accepted in transfer from [facility] last night. He was in respiratory distress and suspected sepsis. At a chest x-ray that revealed bilateral lower lobe pneumonia elevated white count and elevated lactic acid. He is transferred to the [facility], [place] where he was admitted through the emergency room. because of hypercapnic respiratory failure the patient was intubated central line was placed and he was stabilized and then transferred to the ICU. This morning his vital signs are stable he is off Levophed. Stolid pressures are running in the 100s. Actinic acid is down below 1. He is on FiO2 of 25 percent with 100 percent O2 saturations. Chest x- ray reveals bilateral pulmonary infiltrates suspicious for either pulmonary edema and possibly left pleural effusion. In some ways it is no worse than the chest x-ray one month ago. He had recently been discharged from this facility after an extended stay for exacerbation of COPD and pneumonia. His ejection fraction is 30 percent. Source: old records Exam Limitations: other (patient is intubated) Date Seen 11/26/16 Attending Physician Lamar Mcdonald MD PCP José Manuel Tatum MD Referring Physician Date of Admission Nov 26, 2016 at 00:30 Home Medications & Allergies Home Medications Reviewed patient Home Medication Reconciliation Form Allergies Allergies Coded Allergies No Known Drug Allergies (Unverified11/18/16) Past Hheluqj-Ejqboi-Cfcvmv Hx Patient Social History Marrital Status: Employed/Student: retired Alcohol Use: Denies Use Recreational Drug Use: No Smoking Status: Former Smoker Former smoker/When Quit: Mar 31, 1987 Type Used: Cigarettes Physical Abuse Screen: No Sexual Abuse: No Recent Foreign Travel: No Contact w/other who traveled: No Recent Hopitalizations: Yes (pneumonia - discharged yesterday) Recent Infectious Disease Expo: No Immunizations Up To Date Date of Pneumonia Vaccine: Mar 14, 2015 Seasonal Allergies Seasonal Allergies: No Surgeries HX Surgeries: Yes (NECK SURGERY, HERNIA SX, ) Surgeries: Orthopedic, Pacemaker Respiratory Hx Respiratory Disorders: No Cardiovascular Hx Cardiovascular Disorders: Yes ([employer] pacemaker) Cardiac Disorders: Cardiomyopathy (ejection fraction of 30 percent), Chronic Edema/Swelling, Hypertension, Peripheral Vascular Neurological Hx Neurological Disorders: No Reproductive System Hx Reproductive Disorders: No Genitourinary Hx Genitourinary Disorders: No Genitourinary Disorders: Benign Prostatic Hyperpl, Prostate Problems Gastrointestinal Hx Gastrointestinal Disorders: No Musculoskeletal Hx Musculoskeletal Disorders: Yes (broken neck and broken wrist) Musculoskeletal Disorders: Fractures Endocrine Hx Endocrine Disorders: No HEENT HX ENT Disorders: Yes HEENT Disorders: Cataract Hearing Impairment: Hard of Hearing Cancer Hx Cancer: No Psychosocial Hx Psychiatric Problems: No Integumentary HX Skin/Integumentary Disorder: No (HX OF CELLULITIS) Skin/Integumentary Disorders: Recent Skin Changes Blood Transfusions Hx Blood Disorders: No Reviewed Nursing Assessment Reviewed/Agree w Nursing PMH: Yes Family Medical History Family Hx: Arthritis 19 MOTHER Colon cancer G8 BROTHER G8 SISTER Myocardial infarction G8 BROTHER Review of Systems Constitutional: see HPI, other (unable to obtain secondary to patient being intubated and sedated) Physical Exam Physical Exam Vital Signs Vital Sign - Last 12Hours 11/25/16 11/25/16 11/26/16 23:32 23:46 01:40 Temp 98.1 Pulse 80 Resp 17 B/P (MAP) 109/71 Pulse Ox 100 O2 Delivery NIV/CPAP O2 Flow Rate 50.00 FiO2 60 Capillary Refill : Greater Than 3 Seconds General Appearance: No Apparent Distress, Obese, Other (intubated) HEENT: Normal ENT Inspection Neck: Limited Range of Motion Respiratory: Rhonci Cardiovascular: Regular Rate, Rhythm, Diastolic Murmur Gastrointestinal: Non Tender, Soft Rectal: Deferred Extremity: Inflammation, Pedal Edema, Other (onychomycosis and chronic venous insufficiency bilateral legs with a venous ulcer on the left) Neurologic/Psychiatric: Other (sedated) Results Results/Procedures Lab Laboratory Tests 11/26/16 00:00 11/26/16 05:30 Assessment/Plan Admission Diagnosis 1. septic shock with hypercapnic respiratory failure bilateral pneumonia. Organ systems involved include liver with an elevated total bilirubin, a drop in the platelet count, elevated lactic acid and hypotension. 2. 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 Bilateral pneumonia-possibly facility acquired 4. COPD 5. Chronic venous insufficiency 6. Hypernatremia 7. Thrombocytopenia 8. Hypophosphatemia plan is for short-term ventilation support. Since the patient's oxygenation is at 100 percent with an FiO2 21 percent we'll allow the patient to awaken and to begin weaning. Chest ray will be obtained and repeat blood gas since the last blood gas is deemed to be inaccurate. Patient's overall prognosis remains poor and guarded Clinical Quality Measures DVT/VTE Risk/Contraindication: Risk Factor Score Per Nursin RFS Level Per Nursing on Admit: 4+=Very High LAMAR MCDONALD MD Nov 26, 2016 08:15
[2016-11-26] MEDS ORDERED: PIPERACILLIN SODIUM/TAZOBACTAM 4.5 GM in NS (IVPB) 100 ML IV NR (08:30)
[2016-11-26] MEDS ORDERED: VANCOMYCIN INJECTION 0.1 MG in NS (IVPB) 250 ML IV SCH (08:30)
[2016-11-26] MEDS: ENOXAPARIN 40 MG/0.4 ML (LOVENOX) SYR SC SCH (08:40)
--- NOTE | 2016-11-26 08:40 | Diagnostic Imaging Report ---
CHEST 1 VIEW, AP/PA ONLY INDICATION: Intubation. COMPARISON: Same day at 12:12 a.m. FINDINGS: Support Devices: Stable right IJ central venous catheter. Stable ET and enteric tubes. Stable left pectoral transvenous pacemaker. Chest: Right basilar pulmonary opacities are unchanged. Small left pleural effusion is also unchanged. No pneumothorax. Stable cardiomegaly. IMPRESSION: 1. Stable support devices. 2. Unchanged basilar pulmonary opacities and small left pleural effusion. Findings may relate to a combination of atelectasis and pulmonary edema. Alternatively, multifocal infection could have this appearance in the appropriate clinical setting. Dictated by: Dictated on workstation # [id number]
[2016-11-26] MEDS: methylPREDNISolone 40 MG/ML (Solu-MEDROL) VIAL IV SCH ×3 (08:41→20:27)
[2016-11-26 08:58] LABS: ABG BASE EXCESS 13.9 MMOL/L (-2.5-2.5); ABG HCO3 38 MMOL/L (23-27); ABG OXYGEN SATURATION 91 % (94-100); ABG PCO2 43 MMHG (35-45); ABG PH 7.55 (7.37-7.43); ABG PO2 50 MMHG (79-93); ABG TCO2 39.2 MMOL/L (21.0-31.0)
[2016-11-26 08:59] LABS: ALLENS TEST POSITIVE; PATIENT TEMP 96.9
[2016-11-26] MEDS ORDERED: FUROSEMIDE 40 MG/4 ML INJ (LASIX) IVP SCH (09:14)
--- NOTE | 2016-11-26 09:43 | Diagnostic Imaging Report ---
EXAM: CHEST 1 VIEW, AP/PA ONLY INDICATION: Intubated. COMPARISON: Chest radiograph 11/21/2016. FINDINGS: New ETT tip just below level of clavicles. Right IJ CVC tip mid SVC. Cardiac pacer. NG tube tip and side-port within the stomach. Cardiomegaly with increased pulmonary vascularity. Calcified aorta. Bibasilar atelectasis and/or infiltrate. Probable left pleural effusion. No pneumothorax. IMPRESSION: 1. New ETT, NGT and right IJ CVC in good position. 2. Persistent cardiomegaly and pulmonary venous congestion. 3. Persistent bibasilar atelectasis and/or infiltrate. Probable left pleural effusion. Dictated by: Dictated on workstation # [id number]
[2016-11-26] MEDS ORDERED: VANCOMYCIN 2000 MG/NS 500 ML IVPB IV NR ×2 (10:00)
--- NOTE | 2016-11-26 12:49 | Consultation-Cardiology ---
HPI-Cardiology Cardiology Consultation: Date of Consultation 11/26/16 Date of Admission Attending Physician Lamar Mcdonald MD Admitting Physician José Manuel Tatum MD Consulting Physician Fatuma NGUYEN MD HPI: Chief Complaint: respiratory failure this is a 86-year-old gentleman who presented with significant respiratory distress and had to be intubated and ventilated. History is therefore limited because the patient is intubated. He has history of congestive heart failure with reduced LV systolic function with EF of 30 percent on 11/15/2016. Echocardiogram also showed mild to moderate valvular heart disease including mild to moderate mitral regurgitation. And apvl-[id number] aortic stenosis. He also has pulmonary hypertension with PA pressure of around 50 mmHg. 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 patient presents with sepsis and source is likely pneumonia. Review of Systems-Cardiology Review of Systems Constitutional: No As described under HPI, No no symptoms reported, No chills, No fever, No lightheadedness, No malaise, No tiredness, No weight loss, No weight gain, No other Eyes: No As described under HPI, No no symptoms reported, No blindness, No blurred vision, No contact lenses, No drainage, No decreased acuity, No foreign body sensation, No glasses, No inflammation, No pain, No photophobia, No previous injury, No shadows, No tunnel vision, No other, No vision change Ears/Nose/Throat: No As described under HPI, No no symptoms reported, No chronic hearing loss, No epistaxis, No ear discharge, No ear pain, No loose teeth, No mouth pain, No mouth swelling, No nasal drainage, No nose pain, No recent hearing loss, No throat pain, No throat swelling, No ulcerations, No other Respiratory: orthopnea, shortness of breath Cardiovascular: No no symptoms reported, No As described under HPI, No chest pain, No edema, No irregular heart rate, No lightheadedness, No palpitations, No syncope, No other Gastrointestinal: No no symptoms reported, No As described under HPI, No abdomen distended, No abdominal pain, No blood streaked bowels, No constipation , No diarrhea, No difficulty swallowing, No nausea, No poor appetite, No poor fluid intake, No rectal bleeding, No vomiting, No other, No nausea/vomiting/ diarrhea, No stool coloration changes Genitourinary: No no symptoms reported, No As described under HPI, No burning, No dysuria, No discharge, No frequency, No flank pain, No hematuria, No incontinence, No pain, No urgency, No other, No urine frequency changes, No urine coloration changes Musculoskeletal: No no symptoms reported, No As describe under HPI, No back pain, No gout, No joint pain, No joint swelling, No muscle pain, No muscle stiffness, No neck pain, No other Skin: No no symptoms reported, No As described under HPI, No change in color, No change in hair/nails, No dryness, No lesions, No lumps, No rash, No other, No skin related problems, No ulcerations, No rash on exposed areas, No ulcerations on exposed areas [id number] Hx Patient Social History Marrital Status: Employed/Student: retired Alcohol Use: Denies Use Recreational Drug Use: No Smoking Status: Former Smoker Former smoker/When Quit: Mar 31, 1987 Type Used: Cigarettes Recent Foreign Travel: No Recent Infectious Disease Expo: No Physical Abuse Screen: No Sexual Abuse: No Immunizations Up To Date Date of Pneumonia Vaccine: Mar 14, 2015 Past Medical History PMH As described under Assessment. Family Medical History Family History: Arthritis 19 MOTHER Colon cancer G8 BROTHER G8 SISTER Myocardial infarction G8 BROTHER Allergies and Home Medications Allergies Coded Allergies: No Known Drug Allergies (Unverified , 11/18/16) Home Medications Aspirin 81 Mg Tablet.dr, 81 MG PO DAILY, (Reported) Furosemide 80 Mg Tablet, 80 MG PO DAILY, (Reported) Ipratropium/Albuterol Sulfate 3 Ml Ampul.neb, 3 ML INH RTTID for 30 Days Prescribed by: ZAHIDA ANDERS on 11/23/16 1111 Potassium Chloride 10 Meq Tab.er.prt, 10 MEQ PO DAILY, (Reported) Prednisone 10 Mg Tab.ds.pk, 10 MG PO DAILY, #21 Take 6 tabs(60mg)daily,decrease by 1 tab(10MG)daily. Prescribed by: ZAHIDA ANDERS on 11/23/16 1111 Tolterodine Tartrate 4 Mg Cap, 4 MG PO DAILY, (Reported) [Silver Alginate] , TP DAILY, (Reported) Physical Exam-Cardiology Physical Exam Vital Signs/I&O Vital Sign - Last 12Hours 11/26/16 11/26/16 11/26/16 11/26/16 01:51 02:00 03:00 04:00 Pulse 79 79 80 80 Resp 18 10 11 14 B/P (MAP) 98/67 102/59 Pulse Ox 100 100 100 100 O2 Delivery Mechanical Ventilator Mechanical Ventilator O2 Flow Rate 50.00 50.00 FiO2 50 40 11/26/16 11/26/16 11/26/16 11/26/16 04:00 04:00 04:00 05:00 Temp 96.7 Pulse 80 80 Resp 7 9 B/P (MAP) 101/58 102/59 Pulse Ox 100 99 100 O2 Delivery Mechanical Ventilator Mechanical Ventilator Mechanical Ventilator O2 Flow Rate 50.00 30.00 50.00 11/26/16 11/26/16 11/26/16 11/26/16 06:04 06:15 07:00 07:00 Pulse 80 80 78 80 Resp 8 14 14 B/P (MAP) 76/56 91/55 Pulse Ox 100 100 96 O2 Delivery Mechanical Ventilator Mechanical Ventilator O2 Flow Rate 50.00 21.00 FiO2 30 11/26/16 11/26/16 11/26/16 11/26/16 07:53 08:00 08:00 08:11 Temp 96.9 Pulse 79 80 Resp 14 14 B/P (MAP) 92/53 Pulse Ox 100 99 100 O2 Delivery Mechanical Ventilator Mechanical Ventilator O2 Flow Rate 21.00 21.00 FiO2 21 11/26/16 11/26/16 11/26/16 11/26/16 09:00 10:00 10:00 11:00 Pulse 79 93 79 79 Resp 14 17 15 15 B/P (MAP) 103/90 102/58 93/56 Pulse Ox 100 100 100 100 O2 Delivery Mechanical Ventilator Mechanical Ventilator Mechanical Ventilator O2 Flow Rate 21.00 21.00 21.00 FiO2 21 11/26/16 11/26/16 11/26/16 11/26/16 11:30 12:00 12:10 12:52 Temp 96.6 Pulse 76 80 Resp 16 15 B/P (MAP) 89/46 Pulse Ox 100 100 100 O2 Delivery Mechanical Ventilator Mechanical Ventilator O2 Flow Rate 21.00 21.00 FiO2 21 11/26/16 11/26/16 13:00 13:15 Pulse 80 80 Resp 15 15 B/P (MAP) 86/44 80/44 Pulse Ox 100 98 O2 Delivery Mechanical Ventilator Mechanical Ventilator O2 Flow Rate 21.00 Capillary Refill : Greater Than 3 Seconds Constitutional: other (intubated and ventilated) HEENT: No PERRL, No normal ENT inspection, No TMs normal, No pharynx normal, No scleral icterus (R), No scleral icterus (L), No pale conjunctivae (R), No pale conjunctivae (L), No photophobia, No TM abnormal (R), No TM abnormal (L), No pharyngeal erythema, No tonsillar exudate, No other, No discharge, No EOMI, No hearing is well preserved, No hard of hearing, No oral hygience is good, No ulceration, No xanthelasmas are seen Neck: No non-tender, No full range of motion, No supple, No normal inspection, No carotid bruit, No limited range of motion, No lymphadenopathy (R), No lymphadenopathy (L), No tender lateral, No tender midline, No thyromegaly, No other, No carotid pulses are 2 + bilaterally, No with good upstrokes Respiratory: No accessory muscle use, No respiratory distress, No chest tender , No chest expansion is symmetric, No chest is bilaterally symmetric, No lungs clear to percussion, No lungs clear to auscultation, No crackles, rhonchi, No rales, No stridor, No wheezing, No pleural rub, No other Cardiovascular: irregularly irregular, edema Gastrointestinal: No tender, No soft, No round, No distended, No pulsatile mass , No organomegaly, No guarding, No rebound, No tenderness, No hernia, No mass, No audible bowel sounds, No abnormal bowel sounds, No abdominal bruits, No spleenomegaly, No other Rectal: deferred Extremities: wound Neurologic/Psychiatric: alert Skin: warm/dry, No rash Data Review Labs Laboratory Tests 11/26/16 00:00: Sodium Level 151H, Potassium Level 3.9, Chloride Level 102, Carbon Dioxide Level 39H, Anion Gap 10, Blood Urea Nitrogen 49H, Creatinine 1.27, Estimat Glomerular Filtration Rate 54, BUN/Creatinine Ratio 39, Glucose Level 107H, Lactic Acid Level 0.78, Calcium Level 7.1L, Total Bilirubin 0.8, Aspartate Amino Transf (AST/SGOT) 25, Alanine Aminotransferase (ALT/SGPT) 44, Alkaline Phosphatase 51, Total Protein 4.5L, Albumin 2.5L 11/26/16 00:09: Blood Gas Puncture Site L RAD, Blood Gas Patient Temperature 98.8, Arterial Blood pH 7.48H, Arterial Blood Partial Pressure CO2 62H, Arterial Blood Partial Pressure O2 66L, Arterial Blood HCO3 45*H, Arterial Blood Total CO2 47.2H, Arterial Blood Oxygen Saturation 94, Arterial Blood Base Excess 20.0H, Alex Test YES-POS, Blood Gas Ventilator Setting YES, Blood Gas Inspired Oxygen 60% 11/26/16 05:30: Sodium Level 150H, Potassium Level 3.4L, Chloride Level 102, Carbon Dioxide Level 39H, Anion Gap 9, Blood Urea Nitrogen 49H, Creatinine 1.25, Estimat Glomerular Filtration Rate 55, BUN/Creatinine Ratio 39, Glucose Level 120H, Calcium Level 7.3L, Total Bilirubin 1.1H, Aspartate Amino Transf (AST/SGOT) 25, Alanine Aminotransferase (ALT/SGPT) 42, Alkaline Phosphatase 50, Total Protein 4.4L, Albumin 2.4L, Blood Gas Puncture Site R RAD, Blood Gas Patient Temperature 96.7, Arterial Blood pH 7.60H, Arterial Blood Partial Pressure CO2 40, Arterial Blood Partial Pressure O2 46L, Arterial Blood HCO3 40H, Arterial Blood Total CO2 41.1H, Arterial Blood Oxygen Saturation 92L, Arterial Blood Base Excess 16.0H, Alex Test YES-POS, Blood Gas Ventilator Setting YES, Blood Gas Inspired Oxygen 30%, White Blood Count 8.4, Red Blood Count 3.90L, Hemoglobin 11.5L, Hematocrit 39L, Mean Corpuscular Volume 100H, Mean Corpuscular Hemoglobin 30, Mean Corpuscular Hemoglobin Concent 29L, Red Cell Distribution Width 16.4H, Platelet Count 102L, Mean Platelet Volume 11.6H, Neutrophils (%) (Auto) 80H, Lymphocytes (%) (Auto) 12, Monocytes (%) (Auto) 8, Eosinophils (%) (Auto) 0, Basophils (%) (Auto) 0, Neutrophils # (Auto) 6.8, Lymphocytes # (Auto) 1.0, Monocytes # (Auto) 0.7, Eosinophils # (Auto) 0.0, Basophils # (Auto) 0.0, Neutrophils % (Manual) 76, Lymphocytes % (Manual) 13, Monocytes % (Manual) 6, Eosinophils % (Manual) 0, Basophils % (Manual) 0, Band Neutrophils 1, Reactive Lymphocytes 4, Polychromasia SLIGHT, Hypochromasia SLIGHT, Anisocytosis SLIGHT, Macrocytosis SLIGHT, Target Cells SLIGHT, Phosphorus Level 1.4L, Magnesium Level 1.8 11/26/16 08:56: Blood Gas Puncture Site LEFT RADIAL, Blood Gas Patient Temperature 96.9, Arterial Blood pH 7.55H, Arterial Blood Partial Pressure CO2 43, Arterial Blood Partial Pressure O2 50L, Arterial Blood HCO3 38H, Arterial Blood Total CO2 39.2H , Arterial Blood Oxygen Saturation 91L, Arterial Blood Base Excess 13.9H, Alex Test POSITIVE, Blood Gas Ventilator Setting YES, Blood Gas Inspired Oxygen 21% 11/26/16 10:22: B-Type Natriuretic Peptide 1589.4H 11/26/16 11:53: Glucometer 145H Radiology echocardiogram 11/15/2016 LVEF 30 percent.ohug-je-owtozehw mitral regurgitation, jvhh-bc-yjikfmid aortic stenosis. PA pressure around 50. ECG Impression ECG Comment paced rhythm A/P-Cardiology Assessment/Admission Diagnosis pneumonia/sepsis, Septic shock, Congestive heart failure, Nonischemic cardiomyopathy, Pacemaker. Plan severe sepsis with septic shock. On IV fluids and Levophed. Source of sepsis is likely the lungs. Defer treatment of sepsis and Dr. Mcdonald. chronic left ventricular systolic dysfunction, nonischemic cardiomyopathy. BNP is 1500. CVP is 11. Sodium is 151. I therefore do not believe that the patient is in acute decompensated congestive heart failure. Therefore I will recommend decreasing Lasix to 40 mg daily. We will watch strict input and output and renal function with BUN/creatinine daily. Echo of 11/15/16: LVEF 30%, global hypokinesis that is more marked in the posterobasal wall, mild to mod TR & MR & AI, aortic valve sclerosis with mild aortic stenosis (peak grad 20 mmHg and valve area 1.8 sq cm), PASP approx 50-55 mmHg Acute on chronic renal failure. Sinus node dysfunction with marked bradycardia (causing WARE due to chronotropic incomptence) and documented intermittent complete heart block (ECG of 02/26/15), treated with dual chamber pacemaker implantation on 03/31/15, functioning normally on interrogation of Apr 2016 Dilated left ventricle and without evidence of ischemia or any distinct evidence of infarction. Gating could not be carried out due to multiple and frequent premature ventricular contractions. Per MPI of March 2016 prognosis is guarded. patient of Dr. Martinez. Thank you for your consultation. Please call me if you have any questions. Elie Nguyen MD, FACP, FACC, FSCAI, FHRS, CCDS Interventional Cardiology Cardiac Electrophysiology Vascular Medicine and Endovascular Interventions Clinical Quality Measures DVT/VTE Risk/Contraindication: Risk Factor Score Per Nursin RFS Level Per Nursing on Admit: 4+=Very High Fatuma NGUYEN MD Nov 26, 2016 12:49 pm
[2016-11-26] MEDS ORDERED: NS (IVPB) 0 ML ONE (14:02)
[2016-11-26] MEDS ORDERED: NS (IVPB) 50 ML ONE (14:04)
[2016-11-26] MEDS: DEXMEDETOMIDINE INJECTION 200 MCG in NS (IVPB) 50 ML IV SCH ×3 (14:08→20:31)
[2016-11-26] MEDS: fentaNYL INJECTION 100 MCG/2 ML AMP IVP PRN (14:18)
[2016-11-26] MEDS: PIPERACILLIN/TAZOBACTAM 4.5 GM/NS 100 ML IVPB IV SCH ×4 (15:25→22:28)
[2016-11-26] MEDS: VANCOMYCIN 1250 MG/NS 250 ML IVPB IV SCH ×2 (21:18)
[2016-11-27] VITALS (33 sets, daily range): BP systolic 91–156; BP diastolic 48–87
[2016-11-27] MEDS: DEXMEDETOMIDINE INJECTION 200 MCG in NS (IVPB) 50 ML IV SCH ×6 (01:01→21:00)
[2016-11-27] MEDS: RT-ALBUTEROL/IPRATROPIUM 3 ML (DUONEB) VIAL INH SCH ×6 (02:07→22:45)
[2016-11-27] MEDS: methylPREDNISolone 40 MG/ML (Solu-MEDROL) VIAL IV SCH ×4 (03:04→20:11)
[2016-11-27 05:51] LABS: BASOPHILS % (AUTO) 0 % (0-10); EOSINOPHILS % (AUTO) 0 % (0-10); LYMPHOCYTES # (AUTO) 0.2 X 10^3 (1.0-4.0); LYMPHOCYTES % (AUTO) 2 % (12-44); MEAN CORPUSCULAR HEMOGLOBIN 29 PG (25-34); MEAN CORPUSCULAR HGB CONC 32 G/DL (32-36); MEAN CORPUSCULAR VOLUME 93 FL (80-99); MONOCYTES # (AUTO) 0.2 X 10^3 (0.0-1.0); MONOCYTES % (AUTO) 2 % (0-12); NEUTROPHILS # (AUTO) 9.8 X 10^3 (1.8-7.8); NEUTROPHILS % (AUTO) 95 % (42-75); PLATELET COUNT 116 10^3/uL (130-400); RED BLOOD COUNT 4.37 10^6/uL (4.35-5.85); RED CELL DISTRIBUTION WIDTH 17.1 % (10.0-14.5); WHITE BLOOD COUNT 10.3 10^3/uL (4.3-11.0)
[2016-11-27 05:51] LABS: ABG BASE EXCESS 8.9 MMOL/L (-2.5-2.5); ABG HCO3 33 MMOL/L (23-27); ABG OXYGEN SATURATION 91 % (94-100); ABG PCO2 39 MMHG (35-45); ABG PH 7.53 (7.37-7.43); ABG PO2 54 MMHG (79-93); ABG TCO2 33.7 MMOL/L (21.0-31.0)
[2016-11-27 05:52] LABS: ALLENS TEST YES-POS; PATIENT TEMP 96.5
[2016-11-27] MEDS: MAGNESIUM 1 GM/100 ML IVPB 100 ML IV SCH (06:00)
[2016-11-27] MEDS: KCL 20 MEQ TAB (K-DUR) PO SCH (06:00)
[2016-11-27] MEDS: POTASSIUM CL 10MEQ/50ML IVPB 50 ML IV SCH (06:00)
[2016-11-27 06:07] LABS: CREATININE SERUM 1.65 MG/DL (0.60-1.30); MAGNESIUM 1.8 MG/DL (1.8-2.4); POTASSIUM 3.7 MMOL/L (3.6-5.0)
[2016-11-27] MEDS: PIPERACILLIN/TAZOBACTAM 4.5 GM/NS 100 ML IVPB IV SCH ×6 (06:07→22:58)
[2016-11-27 06:18] LABS: ANISOCYTOSIS SLIGHT; BAND NEUTROPHILS 1 %; BASOPHILS % (MANUAL) 0 %; EOSINOPHILS % (MANUAL) 0 %; LYMPHOCYTES % (MANUAL) 3 %; NEUTROPHILS % (MANUAL) 94 %
[2016-11-27 06:19] LABS: TARGET CELLS SLIGHT
[2016-11-27] MEDS: NOREPINEPHRINE 4 MG in D5W 250 ML (IVPB) 250 ML IV SCH ×2 (06:55→20:14)
[2016-11-27] MEDS: FUROSEMIDE 40 MG/4 ML INJ (LASIX) IVP SCH (08:46)
[2016-11-27] MEDS: ENOXAPARIN 40 MG/0.4 ML (LOVENOX) SYR SC SCH (08:46)
[2016-11-27] MEDS: PANTOPRAZOLE 40 MG/10 ML (PROTONIX) VIAL IV SCH ×2 (08:46→20:14)
--- NOTE | 2016-11-27 08:54 | Diagnostic Imaging Report ---
CHEST 1 VIEW, AP/PA ONLY Indication: Intubated Comparison: 11/26/2016 Findings: Support Devices: ET and enteric tubes are grossly stable. Stable right IJ central venous catheter. Stable left pectoral transvenous pacemaker. Chest: Low lung volumes. Unchanged perihilar and basilar pulmonary opacities. Layering small left pleural effusion is unchanged. No pneumothorax. Stable cardiomegaly. Impression: 1. Stable support devices. 2. Low lung volumes with similar perihilar and basilar opacities, likely due to atelectasis. However, underlying infection cannot be excluded in the appropriate clinical setting. 3. Stable layering small left pleural effusion. Dictated by: Dictated on workstation # [id number]
[2016-11-27] MEDS: VANCOMYCIN 1250 MG/NS 250 ML IVPB IV SCH ×4 (10:05→22:00)
[2016-11-27] MEDS: NS IV 1000 ML 1,000 ML IV SCH ×2 (10:05→22:52)
--- NOTE | 2016-11-27 10:16 | Progress Note-Hospitalist ---
Subjective HPI/CC On Admission this is an 86-year-old white male who was accepted in transfer from [facility] last night. He was in respiratory distress and suspected sepsis. At a chest x-ray that revealed bilateral lower lobe pneumonia elevated white count and elevated lactic acid. He is transferred to the [facility] where he was admitted through the emergency room. because of hypercapnic respiratory failure the patient was intubated central line was placed and he was stabilized and then transferred to the ICU. This morning his vital signs are stable he is off Levophed. Stolid pressures are running in the 100s. Actinic acid is down below 1. He is on FiO2 of 25 percent with 100 percent O2 saturations. Chest x- ray reveals bilateral pulmonary infiltrates suspicious for either pulmonary edema and possibly left pleural effusion. In some ways it is no worse than the chest x-ray one month ago. He had recently been discharged from this facility after an extended stay for exacerbation of COPD and pneumonia. His ejection fraction is 30 percent. Date Seen 11/27/16 Subjective/Events-last exam patient is sedated since he becomes agitated any time patient is held. He is down to an FiO2 of 21 percent with oxygen saturations 98-100 percent. The pressure is stable, off any pressors. this is the diagnosis of sepsis he had high volume fluid resuscitation and so his I's are greater than his o's. I reviewed his chart x-rays and prognosis with the family. Most likely he has understood lying sleep apnea with high pulmonary hypertension as well as the depressed ejection fraction contributing to his problems Review of Systems Neurological: Confusion Objective Exam Vital Signs Vital Sign - Last 12Hours 11/25/16 11/25/16 11/26/16 23:32 23:46 01:40 Temp 98.1 Pulse 80 Resp 17 B/P (MAP) 109/71 Pulse Ox 100 O2 Delivery NIV/CPAP O2 Flow Rate 50.00 FiO2 60 Capillary Refill : Greater Than 3 Seconds General Appearance: Other HEENT: Normal ENT Inspection (sedated) Neck: Supple Respiratory: Lungs Clear, Normal Breath Sounds, Decreased Breath Sounds Cardiovascular: Systolic Murmur, Irregularly Irregular Gastrointestinal: Soft Extremity: Inflammation, Pedal Edema Results/Procedures Lab Laboratory Tests 11/27/16 05:31 Assessment/Plan Assessment and Plan Assess & Plan/Chief Complaint 1. septic shock with hypercapnic respiratory failure, bilateral pneumonia. Organ systems involved include liver with an elevated total bilirubin, a drop in the platelet count, elevated lactic acid and hypotension. 2. congestive heart failure systolic with an ejection fraction of 30 percent-On Lasix 3. Bilateral pneumonia-possibly facility acquired 4. COPD 5. Chronic venous insufficiency 6. Hypernatremia 7. Thrombocytopenia-improved 8. Hypophosphatemia 9. probable underlying obstructive sleep apnea 10. Pulmonary hypertension plan to decrease sedation and get weaning trials realizing that he is still a little bit fluid overloaded J CARLOS BEARD MD Nov 27, 2016 10:16
--- NOTE | 2016-11-27 12:13 | Cardiology Progress Note ---
Cardiology SOAP Progress Note Subjective: intubated and ventilated Objective: I&O/Vital Signs Vital Sign - Last 12Hours 11/27/16 11/27/16 11/27/16 11/27/16 00:25 00:35 01:15 01:43 Pulse 79 84 81 80 Resp 15 15 14 B/P (MAP) 106/58 99/58 Pulse Ox 96 97 94 O2 Delivery Mechanical Ventilator Mechanical Ventilator O2 Flow Rate 21.00 21.00 FiO2 21 11/27/16 11/27/16 11/27/16 11/27/16 02:10 02:45 03:27 04:00 Temp 97.2 Pulse 80 80 80 Resp 15 15 14 B/P (MAP) 102/61 107/58 Pulse Ox 94 94 94 O2 Delivery Mechanical Ventilator Mechanical Ventilator O2 Flow Rate 21.00 21.00 FiO2 21 11/27/16 11/27/16 11/27/16 11/27/16 04:00 04:09 04:30 05:30 Pulse 80 79 80 Resp 15 14 11 B/P (MAP) 104/61 104/53 Pulse Ox 99 94 96 99 O2 Delivery Mechanical Ventilator Mechanical Ventilator Mechanical Ventilator O2 Flow Rate 21.00 21.00 21.00 FiO2 21 11/27/16 11/27/16 11/27/16 11/27/16 05:58 06:09 06:39 07:00 Pulse 80 81 80 Resp 11 14 B/P (MAP) 99/56 111/51 Pulse Ox 100 100 O2 Delivery Mechanical Ventilator O2 Flow Rate 21.00 FiO2 21 11/27/16 11/27/16 11/27/16 11/27/16 08:00 08:12 08:19 10:26 Temp 97.8 Pulse 80 77 Resp 14 14 Pulse Ox 99 100 98 O2 Delivery Mechanical Ventilator O2 Flow Rate 21.00 FiO2 21 21 11/27/16 11/27/16 11:29 12:00 Pulse 79 Resp 22 Pulse Ox 98 99 O2 Delivery Mechanical Ventilator O2 Flow Rate 21.00 Intake and Output 11/27/16 00:00 Intake Total 3214.5 ml Output Total 1390 ml Balance 1824.5 ml Weight (Pounds): 275 Weight (Ounces): 6.0 Weight (Calculated Kilograms): 124.090743 Constitutional: other (intubated and ventilated) Respiratory: No accessory muscle use, No respiratory distress, No chest tender , No chest expansion is symmetric, No chest is bilaterally symmetric, No lungs clear to percussion, No lungs clear to auscultation, No crackles, rhonchi, No rales, No stridor, No wheezing, No pleural rub, No other Cardiovascular: irregularly irregular, edema Gastrointestional: No tender, No soft, No round, No distended, No pulsatile mass, No organomegaly, No guarding, No rebound, No tenderness, No hernia, No mass, No audible bowel sounds, No abnormal bowel sounds, No abdominal bruits, No spleenomegaly, No other Extremities: wound Neurologic/Psychiatric: alert Skin: warm/dry, No rash Results/Procedures: Labs Laboratory Tests 11/26/16 18:47: Glucometer 163H 11/27/16 00:24: Glucometer 165H 11/27/16 05:31: White Blood Count 10.3, Red Blood Count 4.37, Hemoglobin 12.8L, Hematocrit 41, Mean Corpuscular Volume 93, Mean Corpuscular Hemoglobin 29, Mean Corpuscular Hemoglobin Concent 32, Red Cell Distribution Width 17.1H, Platelet Count 116L, Mean Platelet Volume 12.0H, Neutrophils (%) (Auto) 95H, Lymphocytes (%) (Auto) 2L, Monocytes (%) (Auto) 2, Eosinophils (%) (Auto) 0, Basophils (%) (Auto) 0, Neutrophils # (Auto) 9.8H, Lymphocytes # (Auto) 0.2L, Monocytes # (Auto) 0.2, Eosinophils # (Auto) 0.0, Basophils # (Auto) 0.0, Neutrophils % (Manual) 94, Lymphocytes % (Manual) 3, Monocytes % (Manual) 2, Eosinophils % (Manual) 0, Basophils % (Manual) 0, Band Neutrophils 1, Anisocytosis SLIGHT, Target Cells SLIGHT, Sodium Level 150H, Potassium Level 3.7, Chloride Level 107, Carbon Dioxide Level 31, Anion Gap 12, Blood Urea Nitrogen 45H, Creatinine 1.65H, Estimat Glomerular Filtration Rate 40, BUN/Creatinine Ratio 27, Glucose Level 182H, Calcium Level 7.0L, Phosphorus Level 3.0, Magnesium Level 1.8 11/27/16 05:38: Blood Gas Puncture Site R RAD, Blood Gas Patient Temperature 96.5, Arterial Blood pH 7.53H, Arterial Blood Partial Pressure CO2 39, Arterial Blood Partial Pressure O2 54L, Arterial Blood HCO3 33H, Arterial Blood Total CO2 33.7H, Arterial Blood Oxygen Saturation 91L, Arterial Blood Base Excess 8.9H, Alex Test YES-POS, Blood Gas Ventilator Setting YES, Blood Gas Inspired Oxygen 21% FIO2 Microbiology 11/26/16 MRSA Screen - Final, Complete MRSA not isolated A/P: Assessment/Dx: pneumonia/sepsis, Septic shock, Congestive heart failure, Nonischemic cardiomyopathy, Pacemaker. Plan: severe sepsis with septic shock. On IV fluids and Levophed. Source of sepsis is likely the lungs. Defer treatment of sepsis and Dr. Mcdonald. chronic left ventricular systolic dysfunction, nonischemic cardiomyopathy. BNP is 1500. CVP is 11. Sodium is 151. I therefore do not believe that the patient is in acute decompensated congestive heart failure. Therefore I will recommend decreasing Lasix to 40 mg daily. We will watch strict input and output and renal function with BUN/creatinine daily. Echo of 11/15/16: LVEF 30%, global hypokinesis that is more marked in the posterobasal wall, mild to mod TR & MR & AI, aortic valve sclerosis with mild aortic stenosis (peak grad 20 mmHg and valve area 1.8 sq cm), PASP approx 50-55 mmHg Acute on chronic renal failure. Sinus node dysfunction with marked bradycardia (causing WARE due to chronotropic incomptence) and documented intermittent complete heart block (ECG of 02/26/15), treated with dual chamber pacemaker implantation on 03/31/15, functioning normally on interrogation of Apr 2016 Dilated left ventricle and without evidence of ischemia or any distinct evidence of infarction. Gating could not be carried out due to multiple and frequent premature ventricular contractions. Per MPI of March 2016 prognosis is guarded. patient of Dr. Martinez. Fatuma DENNISON MD Nov 27, 2016 12:13 pm
[2016-11-27 12:16] LABS: ABG BASE EXCESS 8.2 MMOL/L (-2.5-2.5); ABG HCO3 32 MMOL/L (23-27); ABG OXYGEN SATURATION 91 % (94-100); ABG PCO2 43 MMHG (35-45); ABG PH 7.48 (7.37-7.43); ABG PO2 57 MMHG (79-93); ABG TCO2 33.5 MMOL/L (21.0-31.0)
[2016-11-27 12:17] LABS: ALLENS TEST POSITIVE; PATIENT TEMP 96.9
[2016-11-27] MEDS: FLUCONAZOLE 100 MG/50 ML 50 ML IV SCH (12:26)
[2016-11-27] MEDS ORDERED: TROUGH ORDER-PHARMACY XX NR (21:00)
[2016-11-28] VITALS (28 sets, daily range): BP systolic 88–123; BP diastolic 55–86
[2016-11-28] MEDS: DEXMEDETOMIDINE INJECTION 200 MCG in NS (IVPB) 50 ML IV SCH (01:44)
[2016-11-28] MEDS: RT-ALBUTEROL/IPRATROPIUM 3 ML (DUONEB) VIAL INH SCH ×6 (02:24→22:50)
[2016-11-28] MEDS: methylPREDNISolone 40 MG/ML (Solu-MEDROL) VIAL IV SCH ×4 (02:30→21:07)
[2016-11-28 05:39] LABS: ABG BASE EXCESS 7.7 MMOL/L (-2.5-2.5); ABG HCO3 31 MMOL/L (23-27); ABG OXYGEN SATURATION 91 % (94-100); ABG PCO2 37 MMHG (35-45); ABG PH 7.53 (7.37-7.43); ABG PO2 56 MMHG (79-93); ABG TCO2 32.4 MMOL/L (21.0-31.0)
[2016-11-28 05:42] LABS: ALLENS TEST YES-POS
[2016-11-28 05:53] LABS: BASOPHILS % (AUTO) 0 % (0-10); EOSINOPHILS % (AUTO) 0 % (0-10); LYMPHOCYTES # (AUTO) 0.3 X 10^3 (1.0-4.0); LYMPHOCYTES % (AUTO) 2 % (12-44); MEAN CORPUSCULAR HEMOGLOBIN 30 PG (25-34); MEAN CORPUSCULAR HGB CONC 32 G/DL (32-36); MEAN CORPUSCULAR VOLUME 92 FL (80-99); MEAN PLATELET VOLUME 11.9 FL (7.4-10.4); MONOCYTES # (AUTO) 0.3 X 10^3 (0.0-1.0); MONOCYTES % (AUTO) 2 % (0-12); NEUTROPHILS # (AUTO) 14.2 X 10^3 (1.8-7.8); NEUTROPHILS % (AUTO) 96 % (42-75); PLATELET COUNT 122 10^3/uL (130-400); RED BLOOD COUNT 4.53 10^6/uL (4.35-5.85); RED CELL DISTRIBUTION WIDTH 17.4 % (10.0-14.5); WHITE BLOOD COUNT 14.8 10^3/uL (4.3-11.0)
[2016-11-28] MEDS: POTASSIUM CL 10MEQ/50ML IVPB 50 ML IV SCH ×5 (06:00→11:30)
[2016-11-28] MEDS: MAGNESIUM 1 GM/100 ML IVPB 100 ML IV SCH (06:00)
[2016-11-28] MEDS: KCL 20 MEQ TAB (K-DUR) PO SCH (06:00)
[2016-11-28 06:07] LABS: BAND NEUTROPHILS 1 %; EOSINOPHILS % (MANUAL) 0 %; LYMPHOCYTES % (MANUAL) 3 %; NEUTROPHILS % (MANUAL) 96 %
[2016-11-28 06:08] LABS: ANISOCYTOSIS SLIGHT; POIKILOCYTOSIS SLIGHT; POLYCHROMASIA SLIGHT; TARGET CELLS SLIGHT
[2016-11-28 06:10] LABS: CALCIUM 6.8 MG/DL (8.5-10.1); CREATININE SERUM 1.61 MG/DL (0.60-1.30); MAGNESIUM 1.9 MG/DL (1.8-2.4); PHOSPHORUS 3.8 MG/DL (2.3-4.7); POTASSIUM 3.5 MMOL/L (3.6-5.0)
--- NOTE | 2016-11-28 06:21 | Pulmonary Consultation ---
History of Present Illness History of Present Illness Date of Consultation 11/28/16 06:16 Date of Admission History of Present Illness 86 yo with hx of CHF EF 30%, COPD and recent hospitalization secondary to pneumonia [place] [facility] [place] [facility] [place] to respiratory distress and sepsis. CXR shows bilateral infiltrates. Pt was found to be in acute respiratory failure upon presentation in our ED. He was intubated and central line placed. PT did require Levophed for short period of time. Unable to obtain ROS secondary to ventilator. I am consulted for pulmonary management. Allergies and Home Medications Allergies Coded Allergies: No Known Drug Allergies (Unverified , 11/18/16) Home Medications Aspirin 81 Mg Tablet.dr, 81 MG PO DAILY, (Reported) Furosemide 80 Mg Tablet, 80 MG PO DAILY, (Reported) Ipratropium/Albuterol Sulfate 3 Ml Ampul.neb, 3 ML INH RTTID for 30 Days Prescribed by: ZAHIDA ANDERS on 11/23/16 1111 Potassium Chloride 10 Meq Tab.er.prt, 10 MEQ PO DAILY, (Reported) Prednisone 10 Mg Tab.ds.pk, 10 MG PO DAILY, #21 Take 6 tabs(60mg)daily,decrease by 1 tab(10MG)daily. Prescribed by: ZAHIDA ANDERS on 11/23/16 1111 Tolterodine Tartrate 4 Mg Cap, 4 MG PO DAILY, (Reported) [Silver Alginate] , TP DAILY, (Reported) Past Pkanczn-Snqvhn-Nocdjc Hx Patient Social History Alcohol Use: Denies Use Recreational Drug Use: No Smoking Status: Former Smoker Type Used: Cigarettes Former Smoker/When Quit: Mar 31, 1987 Recent Foreign Travel: No Contact w/Someone Who Travel: No Recent Infectious Disease Expo: No Recent Hopitalizations: Yes (pneumonia - discharged yesterday) Physical Abuse Screen: No Sexual Abuse: No Immunizations Up To Date Date of Pneumonia Vaccine: Mar 14, 2015 Seasonal Allergies Seasonal Allergies: No Surgeries HX Surgeries: Yes (NECK SURGERY, HERNIA SX, ) Surgeries: Orthopedic, Pacemaker Respiratory Hx Respiratory Disorders: No Respiratory Disorders: Pneumonia Cardiovascular Hx Cardiac Disorders: Yes ([employer] pacemaker) Cardiac Disorders: Cardiomyopathy (ejection fraction of 30 percent), Chronic Edema/Swelling, Hypertension, Peripheral Vascular Neurological Hx Neurological Disorders: No Reproductive System Hx Reproductive Disorders: No Genitourinary Hx Genitourinary Disorders: No Genitourinary Disorders: Benign Prostatic Hyperpl, Prostate Problems Gastrointestinal Hx Gastrointestinal Disorders: No Musculoskeletal Hx Musculoskeletal Disorders: Yes (broken neck and broken wrist) Musculoskeletal Disorders: Fractures Endocrine Hx Endocrine Disorders: No HEENT HX ENT Disorders: Yes HEENT Disorders: Cataract Hearing Impairment: Hard of Hearing Cancer Hx Cancer: No Psychosocial Hx Psychiatric Problems: No Integumentary HX Skin/Integumentary Disorder: No (HX OF CELLULITIS) Skin/Integumentary Disorders: Recent Skin Changes Blood Transfusions Hx Blood Disorders: No Reviewed Nursing Assessment Reviewed/Agree w Nursing PMH: Yes Family Medical History Family Medial History: Arthritis 19 MOTHER Colon cancer G8 BROTHER G8 SISTER Myocardial infarction G8 BROTHER Exam Exam Vital Signs Date Time Temp Pulse Resp B/P (MAP) Pulse Ox O2 Delivery O2 Flow Rate FiO2 11/28/16 06:14 80 14 121/70 100 Mechanical Ventilator 21.00 11/28/16 05:27 78 16 119/71 100 Mechanical Ventilator 21.00 11/28/16 04:50 84 21 96 11/28/16 04:34 84 14 118/71 98 Mechanical Ventilator 21.00 11/28/16 04:00 100 Mechanical Ventilator 21.00 11/28/16 03:20 80 14 116/71 99 Mechanical Ventilator 21.00 11/28/16 02:40 79 13 117/71 99 Mechanical Ventilator 21.00 11/28/16 02:24 79 14 100 21 11/28/16 01:44 80 117/68 11/28/16 01:26 80 14 117/74 100 Mechanical Ventilator 21.00 11/28/16 01:00 80 11/28/16 00:31 78 13 122/81 100 Mechanical Ventilator 21.00 11/28/16 00:30 79 14 99 21 11/28/16 00:00 100 Mechanical Ventilator 21.00 11/27/16 23:30 80 13 119/72 99 Mechanical Ventilator 21.00 11/27/16 23:00 79 13 123/72 100 Mechanical Ventilator 21.00 11/27/16 22:45 80 14 100 21 11/27/16 21:26 80 14 125/70 100 Mechanical Ventilator 21.00 11/27/16 20:45 80 14 100 21 11/27/16 20:34 80 13 113/69 100 Mechanical Ventilator 21.00 11/27/16 20:00 97.1 77 14 121/70 100 Mechanical Ventilator 21.00 11/27/16 20:00 100 Mechanical Ventilator 21.00 11/27/16 19:28 80 14 110/75 100 Mechanical Ventilator 21.00 11/27/16 19:00 80 13 114/64 100 Mechanical Ventilator 21.00 11/27/16 18:56 79 11/27/16 18:26 79 14 100 21 11/27/16 18:00 81 14 111/63 100 Mechanical Ventilator 21.00 11/27/16 17:03 79 14 104/60 99 Mechanical Ventilator 21.00 11/27/16 16:40 79 17 100 21 11/27/16 16:00 99 Mechanical Ventilator 21.00 11/27/16 16:00 79 14 124/68 99 Mechanical Ventilator 21.00 11/27/16 15:00 81 15 156/83 100 Mechanical Ventilator 21.00 11/27/16 14:58 84 15 100 21 11/27/16 14:00 80 14 143/76 100 Mechanical Ventilator 11/27/16 13:00 80 11/27/16 13:00 81 16 104/83 98 Mechanical Ventilator 11/27/16 12:13 81 16 100 21 11/27/16 12:00 99 Mechanical Ventilator 21.00 11/27/16 12:00 97.7 11/27/16 11:29 79 22 98 11/27/16 10:26 77 14 98 21 11/27/16 08:19 80 14 100 21 11/27/16 08:12 97.8 11/27/16 08:00 99 Mechanical Ventilator 21.00 11/27/16 07:00 80 11/27/16 06:39 81 14 100 21 I & O 11/28/16 07:00 Intake Total 1922.5 ml Output Total 1500 ml Balance 422.5 ml General Appearance: Other HEENT: Normal ENT Inspection (sedated) Neck: Supple Respiratory: Lungs Clear, Normal Breath Sounds, Decreased Breath Sounds Cardiovascular: Systolic Murmur, Irregularly Irregular Capillary Refill: Greater Than 3 Seconds Extremity: Inflammation, Pedal Edema Neurologic/Psychiatric: Other (sedated) Results Lab Laboratory Tests 11/27/16 05:31 11/28/16 05:30 Assessment/Plan Assessment/Plan Acute on chronic respiratory failure -Wean vent Severe sepsis with pneumonia CHF EF 30% -Decrease IVF -will hep lock for now. 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
[2016-11-28] MEDS ORDERED: FUROSEMIDE 40 MG/4 ML INJ (LASIX) IVP ONE (06:30)
[2016-11-28] MEDS: FUROSEMIDE 40 MG/4 ML INJ (LASIX) IVP SCH (06:50)
[2016-11-28] MEDS: PIPERACILLIN/TAZOBACTAM 4.5 GM/NS 100 ML IVPB IV SCH ×4 (06:52→14:20)
[2016-11-28 07:27] LABS: ABG BASE EXCESS 7.5 MMOL/L (-2.5-2.5); ABG HCO3 31 MMOL/L (23-27); ABG OXYGEN SATURATION 91 % (94-100); ABG PCO2 39 MMHG (35-45); ABG PH 7.51 (7.37-7.43); ABG PO2 56 MMHG (79-93); ABG TCO2 32.5 MMOL/L (21.0-31.0)
[2016-11-28 07:28] LABS: ALLENS TEST YES-POS
[2016-11-28 07:29] LABS: PATIENT TEMP 96.2
[2016-11-28] MEDS: PANTOPRAZOLE 40 MG/10 ML (PROTONIX) VIAL IV SCH ×2 (08:11→21:10)
[2016-11-28] MEDS: FLUCONAZOLE 100 MG/50 ML 50 ML IV SCH (08:11)
[2016-11-28] MEDS: ENOXAPARIN 40 MG/0.4 ML (LOVENOX) SYR SC SCH (08:12)
--- NOTE | 2016-11-28 08:40 | Progress Note-Cardiology ---
Cardiology SOAP Progress Note Subjective: Extubated. No c/o at this time. Son at the bedside. Objective: I&O/Vital Signs Vital Sign - Last 12Hours 11/28/16 11/28/16 11/28/16 11/28/16 01:26 01:44 02:24 02:40 Pulse 80 80 79 79 Resp 14 14 13 B/P (MAP) 117/74 117/68 117/71 Pulse Ox 100 100 99 O2 Delivery Mechanical Ventilator Mechanical Ventilator O2 Flow Rate 21.00 21.00 FiO2 21 11/28/16 11/28/16 11/28/16 11/28/16 03:20 04:00 04:34 04:50 Pulse 80 84 84 Resp 14 14 21 B/P (MAP) 116/71 118/71 Pulse Ox 99 100 98 96 O2 Delivery Mechanical Ventilator Mechanical Ventilator Mechanical Ventilator O2 Flow Rate 21.00 21.00 21.00 11/28/16 11/28/16 11/28/16 11/28/16 05:27 05:40 06:14 06:46 Pulse 78 80 87 Resp 16 14 23 B/P (MAP) 119/71 121/70 Pulse Ox 100 100 91 O2 Delivery Mechanical Ventilator Mechanical Ventilator O2 Flow Rate 21.00 21.00 FiO2 21 11/28/16 11/28/16 11/28/16 11/28/16 07:00 08:00 08:48 08:54 Pulse 80 Pulse Ox 100 94 O2 Delivery Mechanical Ventilator O2 Flow Rate 21.00 2.00 11/28/16 10:43 Pulse Ox 100 O2 Flow Rate 1.00 Intake and Output 11/28/16 00:00 Intake Total 770.5 ml Output Total 1200 ml Balance -429.5 ml Weight (Pounds): 272 Weight (Ounces): 9.0 Weight (Calculated Kilograms): 123.101383 Constitutional: other (recently extubated; somewhat slow to respond, but does appear oriented) Respiratory: rhonchi, other (diminished at the bases; increased exp phase) Cardiovascular: irregularly irregular, edema Gastrointestional: No tender, soft, audible bowel sounds Extremities: significant edema (chronic 3-4 (+), brown discoloration of the skin , keratosis of the skin d/t venous stasis) Neurologic/Psychiatric: alert Skin: warm/dry, No rash, other (see above) Results/Procedures: Labs Laboratory Tests 4/16/17 18:28: Glucometer 138H 11/27/16 21:05: Vancomycin Level Trough 27.2*H 11/28/16 00:32: Glucometer 156H 11/28/16 05:20: Blood Gas Puncture Site L RAD, Blood Gas Patient Temperature 97.0, Arterial Blood pH 7.53H, Arterial Blood Partial Pressure CO2 37, Arterial Blood Partial Pressure O2 56L, Arterial Blood HCO3 31H, Arterial Blood Total CO2 32.4H, Arterial Blood Oxygen Saturation 91L, Arterial Blood Base Excess 7.7H, Alex Test YES-POS, Blood Gas Ventilator Setting YES, Blood Gas Inspired Oxygen 21% FIO2 11/28/16 05:30: White Blood Count 14.8H, Red Blood Count 4.53, Hemoglobin 13.4, Hematocrit 42, Mean Corpuscular Volume 92, Mean Corpuscular Hemoglobin 30, Mean Corpuscular Hemoglobin Concent 32, Red Cell Distribution Width 17.4H, Platelet Count 122L, Mean Platelet Volume 11.9H, Neutrophils (%) (Auto) 96H, Lymphocytes (%) (Auto) 2L, Monocytes (%) (Auto) 2, Eosinophils (%) (Auto) 0, Basophils (%) (Auto) 0, Neutrophils # (Auto) 14.2H, Lymphocytes # (Auto) 0.3L, Monocytes # (Auto) 0.3, Eosinophils # (Auto) 0.0, Basophils # (Auto) 0.0, Neutrophils % (Manual) 96, Lymphocytes % (Manual) 3, Monocytes % (Manual) 0, Eosinophils % (Manual) 0, Band Neutrophils 1, Toxic Granulation 1+, Polychromasia SLIGHT, Poikilocytosis SLIGHT, Anisocytosis SLIGHT, Macrocytosis SLIGHT, Target Cells SLIGHT, Sodium Level 150H, Potassium Level 3.5L, Chloride Level 108H, Carbon Dioxide Level 31, Anion Gap 11, Blood Urea Nitrogen 45H, Creatinine 1.61H, Estimat Glomerular Filtration Rate 41, BUN/Creatinine Ratio 28, Glucose Level 159H, Calcium Level 6.8L, Phosphorus Level 3.8, Magnesium Level 1.9, Vancomycin Level Trough 22.3H 11/28/16 05:32: Glucometer 137H 11/28/16 07:15: Blood Gas Puncture Site RT RADIAL, Blood Gas Patient Temperature 96.2, Arterial Blood pH 7.51H, Arterial Blood Partial Pressure CO2 39, Arterial Blood Partial Pressure O2 56L, Arterial Blood HCO3 31H, Arterial Blood Total CO2 32.5H, Arterial Blood Oxygen Saturation 91L, Arterial Blood Base Excess 7.5H, Alex Test YES-POS, Blood Gas Ventilator Setting YES, Blood Gas Inspired Oxygen 21% Microbiology 11/26/16 MRSA Screen - Final, Complete MRSA not isolated A/P: Assessment: Sepsis being managed per medical and pulmonary services Acute respiratory failure secondary to pneumonia Hypernatremia likely d/t TPN Echo of 11/15/16: LVEF 30%, global hypokinesis that is more marked in the posterobasal wall, mild to mod TR & MR & AI, aortic valve sclerosis with mild aortic stenosis (peak grad 20 mmHg and valve area 1.8 sq cm), PASP approx 50-55 mmHg Acute on chronic renal failure. Acute component may be due to intravascular volume depletion Sinus node dysfunction with marked bradycardia (causing WARE due to chronotropic incompetence) and documented intermittent complete heart block (ECG of 02/26/15) , treated with dual chamber pacemaker implantation on 03/31/15, functioning normally on interrogation of Apr 2016 Dilated non-ischemic cardiomyopathy. Dilated left ventricle and without evidence of ischemia or any distinct evidence of infarction. Gating could not be carried out due to multiple and frequent premature ventricular contractions. Per MPI of March 2016 Marked chronic venous insufficiency with bilateral leg swelling and stasis dermatitis H/o cellulitis in of his leg which is being followed by Dr. 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 Martinez had a detailed conversation with the son regarding cardiac status We will start BB today and adjust dose as tolerated Continue to monitor lab closely Physician Assessment Physician Assessment Lungs: scattered rhonchi, diminished bs at bases Cor: irreg A&R * As documented in our note above * Complex management due to multiple comorbidities * I had a detailed discussion with his son and answered his questions PATRICK TAYLOR LAY BROTHER Nov 28, 2016 08:40 TED MARTINEZ MD FACP FAC CCDS Nov 28, 2016 13:17
--- NOTE | 2016-11-28 08:46 | Diagnostic Imaging Report ---
EXAM: Postoperative radiograph of the chest. INDICATION: Followup, ventilator. COMPARISON: 11/27/2016. FINDINGS: ET tube is in good position. NG tube is the not well seen distally. The right IJ line is unchanged. There is prominent cardiomegaly with bilateral perihilar and basilar infiltrates slightly increased from the prior study and may relate to pulmonary edema. There is a small to moderate effusion suggested on the left side. There is a pacemaker with 2 cardiac leads seen. IMPRESSION: Increased bilateral perihilar and basilar infiltrates may relate to pulmonary edema. Small to moderate left pleural effusion. Dictated by: Dictated on workstation # [id number]
[2016-11-28] MEDS ORDERED: VANCOMYCIN 1 GM/NS 250 ML IVPB IV SCH ×2 (09:00)
[2016-11-28] MEDS: NOREPINEPHRINE 4 MG in D5W 250 ML (IVPB) 250 ML IV SCH (09:35)
--- NOTE | 2016-11-28 11:08 | Progress Note-Hospitalist ---
Standard Progress Note Progress Notes/Assess & Plan Date Seen 11/28/16 Diagnosis 1. septic shock with hypercapnic respiratory failure bilateral pneumonia. Organ systems involved include liver with an elevated total bilirubin, a drop in the platelet count, elevated lactic acid and hypotension. 2. 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 Bilateral pneumonia-possibly facility acquired 4. COPD 5. Chronic venous insufficiency 6. Hypernatremia 7. Thrombocytopenia 8. Hypophosphatemia plan is for short-term ventilation support. Since the patient's oxygenation is at 100 percent with an FiO2 21 percent we'll allow the patient to awaken and to begin weaning. Chest ray will be obtained and repeat blood gas since the last blood gas is deemed to be inaccurate. Patient's overall prognosis remains poor and guarded Assess & Plan/Chief Complaint The patient is an 86-year-old white male who had been discharged on 11/24 after being hospitalized on 11/15. He went to the halfway in [place]. He returned on 11/25 in extreme condition and was ultimately intubated. In examining his presenting data he was afebrile with a pulse of 80 and blood pressures above the Sirs threshold the white count was 8400 the systolic blood pressure greater than 90. He has been O2 dependent so radiating his SaO2 is difficult. He has never had a recorded SaO2 less than 90. Chest x-ray was somewhat ambivalent but raises the question about atelectasis versus edema. The lactic acid was 0.78. Subsequently he he required only 21 percent FiO2 while on intubation. He is currently on nasal cannula with satisfactory SaO2's. He is alert and seems somewhat confused. Breath sounds are distant. CV is regular (paced). Abdomen is soft. Extremities show considerable edema and discoloration in the extremities below the knees suggesting venous stasis and dermatitis. Impression: Respiratory failure. 2.x-ray findings suggesting pulmonary edema. Plan: Advance diet. Lasix IV. Labs Laboratory Tests 11/27/16 05:31 11/28/16 05:30 ANNA KHOURY MD Nov 28, 2016 11:08
[2016-11-28] MEDS ORDERED: FUROSEMIDE 40 MG/4 ML INJ (LASIX) IVP NR ×2 (11:45→17:00)
[2016-11-28] MEDS ORDERED: RT-ALBUTEROL/IPRATROPIUM 3 ML (DUONEB) VIAL INH PRN (14:30)
[2016-11-28 20:17] LABS: CREATININE SERUM 1.91 MG/DL (0.60-1.30)
[2016-11-29] VITALS (25 sets, daily range): BP systolic 89–131; BP diastolic 53–87
[2016-11-29] MEDS: PIPERACILLIN/TAZOBACTAM 4.5 GM/NS 100 ML IVPB IV SCH ×8 (01:09→23:11)
[2016-11-29] MEDS: RT-ALBUTEROL/IPRATROPIUM 3 ML (DUONEB) VIAL INH SCH ×6 (02:00→22:04)
[2016-11-29] MEDS: methylPREDNISolone 40 MG/ML (Solu-MEDROL) VIAL IV SCH ×4 (03:02→20:20)
[2016-11-29 04:37] LABS: BASOPHILS # (AUTO) 0.1 10^3/uL (0.0-0.1); BASOPHILS % (AUTO) 0 % (0-10); EOSINOPHILS % (AUTO) 0 % (0-10); LYMPHOCYTES # (AUTO) 0.6 X 10^3 (1.0-4.0); LYMPHOCYTES % (AUTO) 3 % (12-44); MEAN CORPUSCULAR HEMOGLOBIN 30 PG (25-34); MEAN CORPUSCULAR HGB CONC 32 G/DL (32-36); MEAN CORPUSCULAR VOLUME 93 FL (80-99); MEAN PLATELET VOLUME 11.7 FL (7.4-10.4); MONOCYTES # (AUTO) 0.7 X 10^3 (0.0-1.0); MONOCYTES % (AUTO) 3 % (0-12); NEUTROPHILS # (AUTO) 20.2 X 10^3 (1.8-7.8); NEUTROPHILS % (AUTO) 94 % (42-75); PLATELET COUNT 147 10^3/uL (130-400); RED BLOOD COUNT 4.65 10^6/uL (4.35-5.85); RED CELL DISTRIBUTION WIDTH 18.2 % (10.0-14.5); WHITE BLOOD COUNT 21.5 10^3/uL (4.3-11.0)
[2016-11-29 04:57] LABS: CALCIUM 7.3 MG/DL (8.5-10.1); CREATININE SERUM 2.06 MG/DL (0.60-1.30); PHOSPHORUS 4.3 MG/DL (2.3-4.7); POTASSIUM 4.2 MMOL/L (3.6-5.0)
[2016-11-29 05:13] LABS: BAND NEUTROPHILS 2 %; BASOPHILS % (MANUAL) 0 %; EOSINOPHILS % (MANUAL) 0 %; LYMPHOCYTES % (MANUAL) 5 %; NEUTROPHILS % (MANUAL) 88 %
[2016-11-29 05:14] LABS: ANISOCYTOSIS SLIGHT; HYPOCHROMASIA SLIGHT; TARGET CELLS SLIGHT
[2016-11-29] MEDS: MAGNESIUM 1 GM/100 ML IVPB 100 ML IV SCH (06:00)
[2016-11-29] MEDS: POTASSIUM CL 10MEQ/50ML IVPB 50 ML IV SCH (06:00)
[2016-11-29] MEDS: KCL 20 MEQ TAB (K-DUR) PO SCH (06:00)
--- NOTE | 2016-11-29 06:27 | Pulmonary Progress Note ---
Subjective Subjective/Events-last exam Pt is awake alert. C/O SOB> Exam Exam Vital Signs Date Time Temp Pulse Resp B/P (MAP) Pulse Ox O2 Delivery O2 Flow Rate FiO2 11/29/16 06:00 80 24 127/73 96 Room Air 11/29/16 05:00 86 16 110/73 90 Room Air 11/29/16 04:00 98.9 85 27 113/60 90 Room Air 11/29/16 04:00 90 Room Air 11/29/16 03:00 85 23 120/62 91 Room Air 11/29/16 02:18 5.00 94 11/29/16 02:00 82 12 102/60 92 Room Air 11/29/16 01:00 79 38 114/61 95 Room Air 11/29/16 01:00 79 11/29/16 00:00 94 Room Air 11/29/16 00:00 98.7 80 36 91/61 94 Room Air 11/28/16 23:00 80 38 98/68 100 Room Air 11/28/16 22:51 96 11/28/16 22:00 81 37 123/59 96 Room Air 11/28/16 21:00 80 34 122/69 97 Room Air 11/28/16 20:00 99.5 79 31 117/63 97 Room Air 11/28/16 20:00 98 Room Air 11/28/16 19:00 79 11/28/16 19:00 79 39 115/65 97 Room Air 11/28/16 18:20 95 11/28/16 18:00 97.1 80 35 111/62 96 Room Air 21.00 21.00 11/28/16 17:00 80 111/62 96 Room Air 11/28/16 16:00 80 106/64 96 Room Air 11/28/16 16:00 98 Room Air 11/28/16 16:00 97.1 Room Air 11/28/16 15:20 100 11/28/16 15:00 79 35 110/58 98 Room Air 11/28/16 14:00 80 36 121/76 99 Room Air 11/28/16 13:00 80 11/28/16 13:00 81 30 98/70 99 Room Air 11/28/16 12:00 81 16 88/58 96 Room Air 11/28/16 12:00 98.0 Room Air 11/28/16 12:00 98 Room Air 11/28/16 11:00 81 31 104/55 99 Mechanical Ventilator 21.00 11/28/16 10:43 100 1.00 11/28/16 10:00 82 13 99/61 100 Mechanical Ventilator 21.00 11/28/16 09:00 80 9 98/55 100 Mechanical Ventilator 21.00 11/28/16 08:54 94 11/28/16 08:48 2.00 11/28/16 08:00 100 Mechanical Ventilator 21.00 11/28/16 08:00 80 24 96/55 96 Mechanical Ventilator 21.00 11/28/16 08:00 97.6 Mechanical Ventilator 21.00 11/28/16 07:00 79 24 116/69 99 Mechanical Ventilator 21.00 11/28/16 07:00 80 11/28/16 06:46 87 23 91 I & O 11/29/16 07:00 Intake Total 1302 ml Output Total 1499 ml Balance -197 ml General Appearance: No Apparent Distress, WD/WN, Other HEENT: PERRL/EOMI Neck: Supple Respiratory: Lungs Clear, Normal Breath Sounds, Decreased Breath Sounds Cardiovascular: Systolic Murmur, Irregularly Irregular Capillary Refill: Greater Than 3 Seconds Extremity: Inflammation, Pedal Edema Neurologic/Psychiatric: Alert, Other (sedated) Results Lab Laboratory Tests 11/28/16 05:30 11/28/16 19:40 11/29/16 04:22 Assessment/Plan Assessment/Plan Acute on chronic respiratory failure -PT is doing well off vent. 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
[2016-11-29] MEDS ORDERED: FUROSEMIDE 40 MG/4 ML INJ (LASIX) IVP NR (06:30)
[2016-11-29] MEDS: FUROSEMIDE 40 MG/4 ML INJ (LASIX) IVP SCH (08:22)
[2016-11-29] MEDS: PANTOPRAZOLE 40 MG/10 ML (PROTONIX) VIAL IV SCH ×2 (08:22→20:20)
[2016-11-29] MEDS: FLUCONAZOLE 100 MG/50 ML 50 ML IV SCH (08:23)
[2016-11-29] MEDS: ENOXAPARIN 40 MG/0.4 ML (LOVENOX) SYR SC SCH (08:23)
[2016-11-29] MEDS ORDERED: VANCOMYCIN 1 GM/NS 250 ML IVPB IV SCH ×2 (09:00)
[2016-11-29] MEDS: fentaNYL INJECTION 100 MCG/2 ML AMP IVP PRN (10:00)
--- NOTE | 2016-11-29 11:14 | Progress Note-Cardiology ---
Cardiology SOAP Progress Note Subjective: In bed. Awake and more conversive today. C/O fatigue. No c/o CP, palpitations. Feels his SOB is "OK" today. C/O left leg discomfort at wound site. Objective: I&O/Vital Signs Vital Sign - Last 12Hours 11/29/16 11/29/16 11/29/16 11/29/16 02:00 02:18 03:00 04:00 Pulse 82 85 Resp 12 23 B/P (MAP) 102/60 120/62 Pulse Ox 92 91 90 O2 Delivery Room Air Room Air Room Air O2 Flow Rate 5.00 FiO2 94 11/29/16 11/29/16 11/29/16 11/29/16 04:00 05:00 06:00 06:46 Temp 98.9 Pulse 85 86 80 Resp 27 16 24 B/P (MAP) 113/60 110/73 127/73 Pulse Ox 90 90 96 95 O2 Delivery Room Air Room Air Room Air O2 Flow Rate 2.00 11/29/16 11/29/16 11/29/16 11/29/16 07:00 07:00 08:15 08:30 Temp 97.5 Pulse 80 79 80 Resp 27 B/P (MAP) 127/87 120/70 Pulse Ox 96 97 97 O2 Delivery Nasal Cannula Nasal Cannula Nasal Cannula O2 Flow Rate 2.00 2.00 2.00 11/29/16 11/29/16 11/29/16 11/29/16 09:00 10:00 11:00 11:17 Pulse 87 88 80 Resp 17 34 39 B/P (MAP) 129/69 118/76 131/71 Pulse Ox 97 95 96 95 O2 Delivery Nasal Cannula Nasal Cannula Nasal Cannula O2 Flow Rate 2.00 2.00 2.00 2.00 11/29/16 11/29/16 12:00 13:01 Temp 98.4 Pulse 85 81 Resp 33 36 B/P (MAP) 105/67 107/61 Pulse Ox 97 97 O2 Delivery Nasal Cannula Nasal Cannula O2 Flow Rate 2.00 2.00 Intake and Output 11/29/16 00:00 Intake Total 951 ml Output Total 916 ml Balance 35 ml Weight (Pounds): 278 Weight (Ounces): 3.2 Weight (Calculated Kilograms): 126.355377 Constitutional: other (recently extubated; somewhat slow to respond, but does appear oriented) Respiratory: rhonchi, other (diminished at the bases; increased exp phase) Cardiovascular: irregularly irregular, edema Gastrointestional: No tender, soft, audible bowel sounds Extremities: significant edema (chronic 3-4 (+), brown discoloration of the skin , keratosis of the skin d/t venous stasis) Neurologic/Psychiatric: alert Skin: warm/dry, No rash, other (see above; dressing to LLE D&I (not removed)) Results/Procedures: Labs Laboratory Tests 11/28/16 19:40: Sodium Level 149H, Potassium Level 4.0, Chloride Level 107, Carbon Dioxide Level 29, Anion Gap 13, Blood Urea Nitrogen 49H, Creatinine 1.91H, Estimat Glomerular Filtration Rate 33, BUN/Creatinine Ratio 26, Glucose Level 218H, Calcium Level 7.0L 11/29/16 00:23: Glucometer 130H 11/29/16 04:22: Sodium Level 150H, Potassium Level 4.2, Chloride Level 107, Carbon Dioxide Level 30, Anion Gap 13, Blood Urea Nitrogen 54H, Creatinine 2.06H, Estimat Glomerular Filtration Rate 31, BUN/Creatinine Ratio 26, Glucose Level 167H, Calcium Level 7.3L, White Blood Count 21.5H, Red Blood Count 4.65, Hemoglobin 14.0, Hematocrit 43, Mean Corpuscular Volume 93, Mean Corpuscular Hemoglobin 30 , Mean Corpuscular Hemoglobin Concent 32, Red Cell Distribution Width 18.2H, Platelet Count 147, Mean Platelet Volume 11.7H, Neutrophils (%) (Auto) 94H, Lymphocytes (%) (Auto) 3L, Monocytes (%) (Auto) 3, Eosinophils (%) (Auto) 0, Basophils (%) (Auto) 0, Neutrophils # (Auto) 20.2H, Lymphocytes # (Auto) 0.6L, Monocytes # (Auto) 0.7, Eosinophils # (Auto) 0.0, Basophils # (Auto) 0.1, Neutrophils % (Manual) 88, Lymphocytes % (Manual) 5, Monocytes % (Manual) 5, Eosinophils % (Manual) 0, Basophils % (Manual) 0, Band Neutrophils 2, Hypochromasia SLIGHT, Anisocytosis SLIGHT, Macrocytosis SLIGHT, Target Cells SLIGHT, Phosphorus Level 4.3, Magnesium Level 2.0, B-Type Natriuretic Peptide 907.9H 11/29/16 07:13: Glucometer 144H 11/29/16 13:02: Glucometer 163H Microbiology 11/26/16 MRSA Screen - Final, Complete MRSA not isolated A/P: Assessment: Sepsis being managed per medical and pulmonary services Acute respiratory failure secondary to pneumonia Hypernatremia likely d/t TPN Echo of 11/15/16: LVEF 30%, global hypokinesis that is more marked in the posterobasal wall, mild to mod TR & MR & AI, aortic valve sclerosis with mild aortic stenosis (peak grad 20 mmHg and valve area 1.8 sq cm), PASP approx 50-55 mmHg Acute on chronic renal failure. Acute component may be due to intravascular volume depletion - worsening Sinus node dysfunction with marked bradycardia (causing WARE due to chronotropic incompetence) and documented intermittent complete heart block (ECG of 02/26/15) , treated with dual chamber pacemaker implantation on 03/31/15, functioning normally on interrogation of Apr 2016 Dilated non-ischemic cardiomyopathy. Dilated left ventricle and without evidence of ischemia or any distinct evidence of infarction. Gating could not be carried out due to multiple and frequent premature ventricular contractions. Per MPI of March 2016 Marked chronic venous insufficiency with bilateral leg swelling and stasis dermatitis H/o cellulitis in of his leg which is being followed by Dr. 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 Management complex due to multiple comorbidities PATRICK TAYLOR [employer] Nov 29, 2016 11:14 TED MARTINEZ MD FACP FAC CCDS Nov 29, 2016 13:12
--- NOTE | 2016-11-29 12:49 | Diagnostic Imaging Report ---
EXAMINATION: Portable upright radiograph of the chest. INDICATION: Post extubation. FINDINGS: There is interval extubation and removal of the NG tube. There is a right IJ line with the tip at the mid SVC level. The cardiac pacer with two leads is again seen. There is pulmonary vascular congestion and perihilar infiltrates seen. There is a large left pleural effusion with left lower lobe consolidation or atelectasis. IMPRESSION: Large left pleural effusion with left lower lobe atelectasis or infiltrate. Bilateral perihilar infiltrates. Based on the significant cardiac size enlargement, these findings could be secondary to heart failure. Dictated by: Dictated on workstation # [id number]
[2016-11-29] MEDS: meTOprolol 5 MG/5 ML (LOPRESSOR) VIAL IV SCH ×3 (13:04→20:30)
--- NOTE | 2016-11-29 14:18 | Progress Note-Hospitalist ---
Standard Progress Note Progress Notes/Assess & Plan Date Seen 11/29/16 Diagnosis 1. septic shock with hypercapnic respiratory failure bilateral pneumonia. Organ systems involved include liver with an elevated total bilirubin, a drop in the platelet count, elevated lactic acid and hypotension. 2. 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 Bilateral pneumonia-possibly facility acquired 4. COPD 5. Chronic venous insufficiency 6. Hypernatremia 7. Thrombocytopenia 8. Hypophosphatemia plan is for short-term ventilation support. Since the patient's oxygenation is at 100 percent with an FiO2 21 percent we'll allow the patient to awaken and to begin weaning. Chest ray will be obtained and repeat blood gas since the last blood gas is deemed to be inaccurate. Patient's overall prognosis remains poor and guarded Assess & Plan/Chief Complaint The patient continues to struggle. Echocardiogram showed a LVEF of 30 percent there is mitral regurgitation as well as aortic insufficiency. The aortic valve area is 1.8 cm consistent with mild stenosis. His white count has climbed from 14.8-21.5. This is assumed to be secondary to steroid usage. Curiously his hemoglobin has climbed from 11.5-14.0. Creatinine has also climbed slightly from 1.91-2.06. The patient is very hard of hearing and his mentation is not clear either. It was discussed with his son Mickey about his condition and lack of improvement. The plan will be to confirm the DO NOT RESUSCITATE status including chest compressions and mechanical ventilation. Mickey relates that it would be his wish to take him home to live out his final days. Accordingly a hospice consult has been entered. Physical exam: Vital signs are adequate. SaO2 remains in the low 90s. Lungs show distant breath sounds. CV shows a regular rhythm. There is edema in both hands and feet. Impression: Admission for apparent septic shock and hypercapnia. 2.poor improvement profile. Plan: Hospice consult and transfer to medical floor when bed available Labs Laboratory Tests 11/28/16 05:30 11/28/16 19:40 11/29/16 04:22 ANNA KHOURY MD Nov 29, 2016 14:18
--- NOTE | 2016-11-29 15:43 | Wound Care Progress Note ---
Subjective Subjective Subjective/Events-last exam The patient is an 86-year-old gentleman with venous ulceration of the left leg. Patient has been admitted with respiratory failure, has congestive failure, has chronic edema of his legs, and is unable to elevate due to orthopnea. Past medical history: Congestive heart failure, respiratory failure, lymphedema. Review of Systems General: No Chills Pulmonary: Dyspnea Cardiovascular: No: Chest Pain Objective Exam Last Set of Vital Signs Vital Signs Date Time Temp Pulse Resp B/P (MAP) Pulse Ox O2 Delivery O2 Flow Rate FiO2 11/29/16 13:48 99 2.00 11/29/16 13:01 98.4 81 36 107/61 Nasal Cannula 11/29/16 02:18 94 Capillary Refill : Greater Than 3 Seconds I&O Intake and Output 11/29/16 00:00 Intake Total 2266 ml Output Total 1599 ml Balance 667 ml Intake Oral 845 ml IV Total 1421 ml Output Urine Total 1599 ml General: Alert, Mild Distress Lungs: Normal Air Movement (Nasal cannula O2.) Skin: Other (Left lateral calf 2.1 x 2.0 x 0.3 cm hemorrhagic friable granulation tissue; left posterior calf 2.6 x 3.8 year 0.2 cm regimen friable granulation tissue.) Results Lab Laboratory Tests 11/28/16 19:40: Sodium Level 149H, Potassium Level 4.0, Chloride Level 107, Carbon Dioxide Level 29, Anion Gap 13, Blood Urea Nitrogen 49H, Creatinine 1.91H, Estimat Glomerular Filtration Rate 33, BUN/Creatinine Ratio 26, Glucose Level 218H, Calcium Level 7.0L 11/29/16 00:23: Glucometer 130H 11/29/16 04:22: Sodium Level 150H, Potassium Level 4.2, Chloride Level 107, Carbon Dioxide Level 30, Anion Gap 13, Blood Urea Nitrogen 54H, Creatinine 2.06H, Estimat Glomerular Filtration Rate 31, BUN/Creatinine Ratio 26, Glucose Level 167H, Calcium Level 7.3L, White Blood Count 21.5H, Red Blood Count 4.65, Hemoglobin 14.0, Hematocrit 43, Mean Corpuscular Volume 93, Mean Corpuscular Hemoglobin 30 , Mean Corpuscular Hemoglobin Concent 32, Red Cell Distribution Width 18.2H, Platelet Count 147, Mean Platelet Volume 11.7H, Neutrophils (%) (Auto) 94H, Lymphocytes (%) (Auto) 3L, Monocytes (%) (Auto) 3, Eosinophils (%) (Auto) 0, Basophils (%) (Auto) 0, Neutrophils # (Auto) 20.2H, Lymphocytes # (Auto) 0.6L, Monocytes # (Auto) 0.7, Eosinophils # (Auto) 0.0, Basophils # (Auto) 0.1, Neutrophils % (Manual) 88, Lymphocytes % (Manual) 5, Monocytes % (Manual) 5, Eosinophils % (Manual) 0, Basophils % (Manual) 0, Band Neutrophils 2, Hypochromasia SLIGHT, Anisocytosis SLIGHT, Macrocytosis SLIGHT, Target Cells SLIGHT, Phosphorus Level 4.3, Magnesium Level 2.0, B-Type Natriuretic Peptide 907.9H 11/29/16 07:13: Glucometer 144H 11/29/16 13:02: Glucometer 163H Microbiology 11/26/16 MRSA Screen - Final, Complete MRSA not isolated Assessment/Plan Assessment/Plan Assessment/Plan 1. Venous insufficiency with ulceration of left calf 2, not improved. 2. Congestive heart failure with lymphedema. Plan: Dressings are ordered. Patient is requested to elevate his much she can, however this is very limited. AWILDA AZEVEDO MD Nov 29, 2016 15:43
[2016-11-30] VITALS (13 sets, daily range): BP systolic 92–136; BP diastolic 52–88
[2016-11-30] MEDS: meTOprolol 5 MG/5 ML (LOPRESSOR) VIAL IV SCH ×5 (00:17→17:14)
[2016-11-30] MEDS: methylPREDNISolone 40 MG/ML (Solu-MEDROL) VIAL IV SCH ×4 (02:02→21:21)
[2016-11-30] MEDS: RT-ALBUTEROL/IPRATROPIUM 3 ML (DUONEB) VIAL INH SCH ×6 (02:13→22:09)
[2016-11-30 04:11] LABS: BASOPHILS % (AUTO) 0 % (0-10); EOSINOPHILS % (AUTO) 0 % (0-10); LYMPHOCYTES # (AUTO) 0.5 X 10^3 (1.0-4.0); LYMPHOCYTES % (AUTO) 4 % (12-44); MEAN CORPUSCULAR HEMOGLOBIN 30 PG (25-34); MEAN CORPUSCULAR HGB CONC 31 G/DL (32-36); MEAN CORPUSCULAR VOLUME 95 FL (80-99); MEAN PLATELET VOLUME 11.5 FL (7.4-10.4); MONOCYTES # (AUTO) 0.5 X 10^3 (0.0-1.0); MONOCYTES % (AUTO) 3 % (0-12); NEUTROPHILS # (AUTO) 13.4 X 10^3 (1.8-7.8); NEUTROPHILS % (AUTO) 93 % (42-75); PLATELET COUNT 122 10^3/uL (130-400); RED BLOOD COUNT 4.09 10^6/uL (4.35-5.85); RED CELL DISTRIBUTION WIDTH 17.6 % (10.0-14.5); WHITE BLOOD COUNT 14.5 10^3/uL (4.3-11.0)
[2016-11-30 04:42] LABS: CREATININE SERUM 2.17 MG/DL (0.60-1.30); PHOSPHORUS 4.6 MG/DL (2.3-4.7); POTASSIUM 3.7 MMOL/L (3.6-5.0)
[2016-11-30] MEDS: POTASSIUM CL 10MEQ/50ML IVPB 50 ML IV SCH (06:37)
[2016-11-30] MEDS: MAGNESIUM 1 GM/100 ML IVPB 100 ML IV SCH (06:37)
[2016-11-30] MEDS: KCL 20 MEQ TAB (K-DUR) PO SCH (06:38)
--- NOTE | 2016-11-30 06:41 | Pulmonary Progress Note ---
Subjective Subjective/Events-last exam PT is doing well off vent however very weak. Exam Exam Vital Signs Date Time Temp Pulse Resp B/P (MAP) Pulse Ox O2 Delivery O2 Flow Rate FiO2 11/30/16 06:00 80 21 104/70 91 Nasal Cannula 2.00 11/30/16 05:00 80 24 113/73 94 Nasal Cannula 2.00 11/30/16 04:10 Nasal Cannula 2.00 11/30/16 04:00 98.0 NIV Bilevel 40.00 11/30/16 04:00 100 NIV/Bilevel 40 11/30/16 03:00 78 20 102/52 100 NIV Bilevel 40.00 11/30/16 02:13 79 25 100 40.00 11/30/16 02:00 80 21 110/81 100 NIV Bilevel 40.00 11/30/16 01:00 80 11/30/16 01:00 80 17 92/68 100 NIV Bilevel 40.00 11/30/16 00:20 80 24 100 40.00 11/30/16 00:00 84 31 96/64 98 NIV Bilevel 40.00 11/30/16 00:00 97.8 NIV Bilevel 40.00 11/30/16 00:00 100 NIV/Bilevel 40 11/29/16 23:00 79 15 89/53 97 NIV Bilevel 40.00 11/29/16 22:15 80 36 97 NIV Bilevel 40.00 11/29/16 22:15 80 31 96 40.00 11/29/16 22:14 NIV Bilevel 40.00 11/29/16 22:05 93 2.00 11/29/16 22:00 79 27 104/68 93 Nasal Cannula 2.00 11/29/16 21:00 79 35 118/70 97 Nasal Cannula 2.00 11/29/16 20:00 97 Nasal Cannula 2.00 11/29/16 20:00 82 39 91/66 97 Nasal Cannula 2.00 11/29/16 20:00 98.7 Nasal Cannula 2.00 11/29/16 19:00 83 11/29/16 19:00 87 20 106/61 99 Nasal Cannula 2.00 11/29/16 19:00 98.8 Nasal Cannula 2.00 11/29/16 18:51 98 2.00 11/29/16 18:00 80 38 112/69 100 Nasal Cannula 2.00 11/29/16 17:00 82 18 114/69 99 Nasal Cannula 2.00 11/29/16 16:15 98 Nasal Cannula 2.00 11/29/16 16:15 98.4 79 29 111/61 99 Nasal Cannula 2.00 11/29/16 15:00 80 38 109/62 98 Nasal Cannula 2.00 11/29/16 14:00 78 36 112/74 99 Nasal Cannula 2.00 11/29/16 13:48 99 2.00 11/29/16 13:01 98.4 81 36 107/61 97 Nasal Cannula 2.00 11/29/16 13:00 83 11/29/16 12:00 85 33 105/67 97 Nasal Cannula 2.00 11/29/16 12:00 97 Nasal Cannula 2.00 11/29/16 11:17 95 2.00 11/29/16 11:00 80 39 131/71 96 Nasal Cannula 2.00 11/29/16 10:00 88 34 118/76 95 Nasal Cannula 2.00 11/29/16 09:00 87 17 129/69 97 Nasal Cannula 2.00 11/29/16 08:30 97.5 80 27 120/70 97 Nasal Cannula 2.00 11/29/16 08:15 97 Nasal Cannula 2.00 11/29/16 07:00 79 127/87 96 Nasal Cannula 2.00 11/29/16 07:00 80 11/29/16 06:46 95 2.00 I & O 11/30/16 07:00 Intake Total 1130 ml Output Total 2565 ml Balance -1435 ml General Appearance: No Apparent Distress, WD/WN, Other HEENT: PERRL/EOMI Neck: Supple Respiratory: Lungs Clear, Normal Breath Sounds, Decreased Breath Sounds Cardiovascular: Systolic Murmur, Irregularly Irregular Capillary Refill: Less Than 3 Seconds Extremity: Inflammation, Pedal Edema Neurologic/Psychiatric: Alert, Other (sedated) Results Lab Laboratory Tests 11/28/16 19:40 11/29/16 04:22 11/30/16 03:40 Assessment/Plan Assessment/Plan Acute on chronic respiratory failure -PT is doing well off vent. Severe sepsis with pneumonia -Zosyn CHF EF 30% with bilateral pleural effusions -IVF hep locked -Continue lasix 40mg IV daily COPDAE - solumedrol to 40 Q6 Probable MARY Pulmonary HTN probably group 3 Pt is doing better will transfer to floor. PT/OT increase activity. Pt is a good hospice candidate. Clinical Quality Measures DVT/VTE Risk/Contraindication: Risk Factor Score Per Nursin RFS Level Per Nursing on Admit: 4+=Very High BRAXTON SILVA DO Nov 30, 2016 06:41
[2016-11-30] MEDS: PIPERACILLIN/TAZOBACTAM 4.5 GM/NS 100 ML IVPB IV SCH ×4 (06:46→16:13)
--- NOTE | 2016-11-30 08:39 | Progress Note-Cardiology ---
Cardiology SOAP Progress Note Subjective: Sitting up in bed. Son at the bedside. C/O some SOB, but feels it is better than earlier this morning. No c/o CP, palpitations. C/O generalized weakness. Objective: I&O/Vital Signs Vital Sign - Last 12Hours 11/30/16 11/30/16 11/30/16 11/30/16 01:00 01:00 02:00 02:13 Pulse 80 80 80 79 Resp 17 21 25 B/P (MAP) 92/68 110/81 Pulse Ox 100 100 100 O2 Delivery NIV Bilevel NIV Bilevel O2 Flow Rate 40.00 40.00 40.00 11/30/16 11/30/16 11/30/16 11/30/16 03:00 04:00 04:00 04:10 Temp 98.0 Pulse 78 Resp 20 B/P (MAP) 102/52 Pulse Ox 100 100 O2 Delivery NIV Bilevel NIV/Bilevel NIV Bilevel Nasal Cannula O2 Flow Rate 40.00 40.00 2.00 FiO2 40 11/30/16 11/30/16 11/30/16 11/30/16 05:00 06:00 06:36 07:00 Pulse 80 80 79 Resp 24 21 27 B/P (MAP) 113/73 104/70 136/72 Pulse Ox 94 91 93 94 O2 Delivery Nasal Cannula Nasal Cannula Nasal Cannula O2 Flow Rate 2.00 2.00 2.00 2.00 11/30/16 11/30/16 11/30/16 11/30/16 07:00 08:00 08:00 08:00 Temp 98.8 Pulse 82 100 Resp 25 B/P (MAP) 129/73 Pulse Ox 97 98 O2 Delivery Nasal Cannula Nasal Cannula Nasal Cannula O2 Flow Rate 2.00 2.00 2.00 11/30/16 11/30/16 11/30/16 09:00 10:00 10:16 Pulse 76 78 Resp 7 12 B/P (MAP) 113/88 131/85 Pulse Ox 97 97 98 O2 Delivery Nasal Cannula Nasal Cannula O2 Flow Rate 2.00 2.00 2.00 Intake and Output 11/30/16 00:00 Intake Total 590 ml Output Total 1560 ml Balance -970 ml Weight (Pounds): 282 Weight (Ounces): 3.2 Weight (Calculated Kilograms): [id number] Constitutional: other (recently extubated; somewhat slow to respond, but does appear oriented) Respiratory: rhonchi, other (diminished at the bases; increased exp phase) Cardiovascular: irregularly irregular, edema Gastrointestional: No tender, soft, audible bowel sounds Extremities: significant edema (chronic 3-4 (+), brown discoloration of the skin , keratosis of the skin d/t venous stasis) Neurologic/Psychiatric: alert Skin: warm/dry, No rash, other (see above; dressing to LLE D&I (not removed)) Results/Procedures: Labs Laboratory Tests 11/29/16 13:02: Glucometer 163H 11/29/16 18:30: Glucometer 186H 11/30/16 00:06: Glucometer 164H 11/30/16 03:40: White Blood Count 14.5H, Red Blood Count 4.09L, Hemoglobin 12.1L, Hematocrit 39L , Mean Corpuscular Volume 95, Mean Corpuscular Hemoglobin 30, Mean Corpuscular Hemoglobin Concent 31L, Red Cell Distribution Width 17.6H, Platelet Count 122L, Mean Platelet Volume 11.5H, Neutrophils (%) (Auto) 93H, Lymphocytes (%) (Auto) 4L, Monocytes (%) (Auto) 3, Eosinophils (%) (Auto) 0, Basophils (%) (Auto) 0, Neutrophils # (Auto) 13.4H, Lymphocytes # (Auto) 0.5L, Monocytes # (Auto) 0.5, Eosinophils # (Auto) 0.0, Basophils # (Auto) 0.0, Sodium Level 151H, Potassium Level 3.7, Chloride Level 107, Carbon Dioxide Level 33H, Anion Gap 11, Blood Urea Nitrogen 59H, Creatinine 2.17H, Estimat Glomerular Filtration Rate 29, BUN/ Creatinine Ratio 27, Glucose Level 154H, Calcium Level 7.0L, Phosphorus Level 4.6, Magnesium Level 2.0 11/30/16 06:17: Glucometer 191H Microbiology 11/26/16 MRSA Screen - Final, Complete MRSA not isolated A/P: Assessment: Sepsis being managed per medical and pulmonary services Acute respiratory failure secondary to pneumonia Hypernatremia likely in some part d/t intravascular vol depletion Echo of 11/15/16: LVEF 30%, global hypokinesis that is more marked in the posterobasal wall, mild to mod TR & MR & AI, aortic valve sclerosis with mild aortic stenosis (peak grad 20 mmHg and valve area 1.8 sq cm), PASP approx 50-55 mmHg Acute on chronic renal failure. Acute component may be due to intravascular volume depletion - continued worsening Sinus node dysfunction with marked bradycardia (causing WARE due to chronotropic incompetence) and documented intermittent complete heart block (ECG of 02/26/15) , treated with dual chamber pacemaker implantation on 03/31/15, functioning normally on interrogation of Apr 2016 Dilated non-ischemic cardiomyopathy. Dilated left ventricle and without evidence of ischemia or any distinct evidence of infarction. Gating could not be carried out due to multiple and frequent premature ventricular contractions. Per MPI of March 2016 Marked chronic venous insufficiency with bilateral leg swelling and stasis dermatitis H/o cellulitis in of his leg which is being followed by Dr. 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 We advise cautious IVF hydration. Will start 1/2 NS at 75ml/hr Monitor lab closely Adjust BB as indicated CXR - pending IV diuretics being managed per pulmonary services Physician Assessment Physician Assessment Lungs: dec bs at bases Cor: irreg A&R * As documented in our note above * Complex management due to multiple comorbidities * I discussed his CV issues in detail with his son PATRICK TAYLOR [employer] Nov 30, 2016 08:39 TED MARTINEZ MD [facility] Nov 30, 2016 12:50
[2016-11-30] MEDS: FUROSEMIDE 40 MG/4 ML INJ (LASIX) IVP SCH (08:52)
[2016-11-30] MEDS: PANTOPRAZOLE 40 MG/10 ML (PROTONIX) VIAL IV SCH (08:52)
[2016-11-30] MEDS: FLUCONAZOLE 100 MG/50 ML 50 ML IV SCH (08:52)
[2016-11-30] MEDS: ENOXAPARIN 40 MG/0.4 ML (LOVENOX) SYR SC SCH (08:53)
[2016-11-30] MEDS: 1/2 NS IV SOLUTION 1,000 ML IV SCH (09:09)
--- NOTE | 2016-11-30 09:15 | Diagnostic Imaging Report ---
INDICATION: Followup pneumonia. COMPARISON: 11/29/2016. FINDINGS: A single frontal radiographic view of the chest was obtained and again demonstrates significant cardiomegaly and mild pulmonary vascular congestion. The lungs continue to show complete obscuration of the left mid and lower lung bruno. There is some mild hazy opacification in the right lower lung field as well. Overall, the aeration is stable. There is no pneumothorax. The right internal jugular central venous catheter tip terminates in the SVC. A left-sided dual-lead pacemaker is noted. The bony structures show no gross acute abnormalities. IMPRESSION: 1. Stable exam of the chest showing cardiomegaly and left basilar airspace disease which may be on the basis of effusion with atelectasis and/or infiltrate. 2. A small right effusion cannot be excluded. Dictated by: Dictated on workstation # [id number]
--- NOTE | 2016-11-30 14:30 | Progress Note-Hospitalist ---
Standard Progress Note Progress Notes/Assess & Plan Date Seen 11/30/16 Diagnosis 1. septic shock with hypercapnic respiratory failure bilateral pneumonia. Organ systems involved include liver with an elevated total bilirubin, a drop in the platelet count, elevated lactic acid and hypotension. 2. 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 Bilateral pneumonia-possibly facility acquired 4. COPD 5. Chronic venous insufficiency 6. Hypernatremia 7. Thrombocytopenia 8. Hypophosphatemia plan is for short-term ventilation support. Since the patient's oxygenation is at 100 percent with an FiO2 21 percent we'll allow the patient to awaken and to begin weaning. Chest ray will be obtained and repeat blood gas since the last blood gas is deemed to be inaccurate. Patient's overall prognosis remains poor and guarded Assess & Plan/Chief Complaint The patient continues to labor in respiration. He has been transferred from the ICU to the floor. He cannot complete sentences without taking a breath. He however believes that he is slightly better than yesterday. Physical exam: He is tachypneic. Breath sounds are very distant. CV reveals muffled heart tones. He remains very edematous and even taut in the forearms and lower legs. Impression: Chronic dyspnea and borderline respiratory failure. Comment evaluation of recent echocardiogram shows pulmonary hypertension with 2 values reported between 55 and 70 mmHg and global hypo motility of the left ventricle and ejection fraction rated at 30 percent. The edema in the lower extremities is certainly at suggestive of pulmonary hypertension and does not likely responded very well to diuretic management. Labs Laboratory Tests 11/28/16 19:40 11/29/16 04:22 11/30/16 03:40 ANNA KHOURY MD Nov 30, 2016 14:30
[2016-11-30] MEDS: meTOprolol TARTRATE 25 MG (LOPRESSOR) TABLET PO SCH (21:21)
[2016-11-30] MEDS: fentaNYL INJECTION 100 MCG/2 ML AMP IVP PRN (22:15)
[2016-12-01] VITALS: BP 111/67
[2016-12-01 00:49] VITALS: BP 109/70
[2016-12-01] MEDS: PIPERACILLIN/TAZOBACTAM 4.5 GM/NS 100 ML IVPB IV SCH ×4 (00:56→08:17)
[2016-12-01] MEDS: RT-ALBUTEROL/IPRATROPIUM 3 ML (DUONEB) VIAL INH SCH ×4 (02:07→14:00)
[2016-12-01] MEDS: methylPREDNISolone 40 MG/ML (Solu-MEDROL) VIAL IV SCH (02:21)
[2016-12-01 04:00] VITALS: BP 102/68
[2016-12-01 06:19] LABS: BASOPHILS # (AUTO) 0.1 10^3/uL (0.0-0.1); BASOPHILS % (AUTO) 0 % (0-10); EOSINOPHILS % (AUTO) 0 % (0-10); LYMPHOCYTES # (AUTO) 0.4 X 10^3 (1.0-4.0); LYMPHOCYTES % (AUTO) 2 % (12-44); MEAN CORPUSCULAR HEMOGLOBIN 30 PG (25-34); MEAN CORPUSCULAR HGB CONC 30 G/DL (32-36); MEAN CORPUSCULAR VOLUME 100 FL (80-99); MEAN PLATELET VOLUME 11.4 FL (7.4-10.4); MONOCYTES # (AUTO) 0.6 X 10^3 (0.0-1.0); MONOCYTES % (AUTO) 3 % (0-12); NEUTROPHILS # (AUTO) 18.4 X 10^3 (1.8-7.8); NEUTROPHILS % (AUTO) 95 % (42-75); PLATELET COUNT 145 10^3/uL (130-400); RED BLOOD COUNT 4.45 10^6/uL (4.35-5.85); WHITE BLOOD COUNT 19.5 10^3/uL (4.3-11.0)
[2016-12-01 06:37] LABS: CALCIUM 7.4 MG/DL (8.5-10.1); CREATININE SERUM 2.44 MG/DL (0.60-1.30); MAGNESIUM 2.1 MG/DL (1.8-2.4); PHOSPHORUS 6.3 MG/DL (2.3-4.7)
--- NOTE | 2016-12-01 07:09 | Pulmonary Progress Note ---
Subjective Subjective/Events-last exam PT feels much improved. No complications noted. Exam Exam Vital Signs Date Time Temp Pulse Resp B/P (MAP) Pulse Ox O2 Delivery O2 Flow Rate FiO2 12/01/16 06:53 94 3.50 12/01/16 04:00 97.0 72 16 102/68 95 Nasal Cannula 2.00 12/01/16 02:07 96 3.50 12/01/16 00:49 97.1 66 22 109/70 96 Nasal Cannula 2.00 12/01/16 00:00 76 16 95 40.00 11/30/16 22:09 94 3.50 11/30/16 20:00 98.4 77 20 107/67 94 Nasal Cannula 2.00 11/30/16 19:02 88 2.00 11/30/16 16:00 98.2 57 20 110/56 97 Nasal Cannula 2.00 11/30/16 14:40 79 24 93 40.00 11/30/16 14:32 93 2.00 11/30/16 14:12 97.7 76 22 111/70 99 Nasal Cannula 2.00 11/30/16 10:16 98 2.00 11/30/16 10:00 78 12 131/85 97 Nasal Cannula 2.00 11/30/16 09:00 76 7 113/88 97 Nasal Cannula 2.00 11/30/16 08:00 98.8 Nasal Cannula 2.00 11/30/16 08:00 100 25 129/73 98 Nasal Cannula 2.00 11/30/16 08:00 97 Nasal Cannula 2.00 I & O 12/01/16 07:00 Intake Total 1320 ml Output Total 1650 ml Balance -330 ml General Appearance: No Apparent Distress, WD/WN, Other HEENT: PERRL/EOMI Neck: Supple Respiratory: Lungs Clear, Normal Breath Sounds, Decreased Breath Sounds Cardiovascular: Systolic Murmur, Irregularly Irregular Capillary Refill: Less Than 3 Seconds Extremity: Inflammation, Pedal Edema Neurologic/Psychiatric: Alert, Other (sedated) Results Lab Laboratory Tests 11/30/16 03:40 12/01/16 06:12 Assessment/Plan Assessment/Plan Acute on chronic respiratory failure - improving Severe sepsis with pneumonia -Zosyn CHF EF 30% with bilateral pleural effusions -IVF hep locked -Continue lasix 40mg IV daily COPDAE - solumedrol to 40 Q6 - decrease to Q12 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
[2016-12-01 07:35] VITALS: BP 112/64
[2016-12-01] MEDS: FUROSEMIDE 40 MG/4 ML INJ (LASIX) IVP SCH (08:16)
[2016-12-01] MEDS: meTOprolol TARTRATE 25 MG (LOPRESSOR) TABLET PO SCH (08:17)
[2016-12-01] MEDS: FLUCONAZOLE 100 MG/50 ML 50 ML IV SCH (08:17)
--- NOTE | 2016-12-01 08:55 | Progress Note-Cardiology ---
Cardiology SOAP Progress Note Subjective: Sitting up in bed. States he feels better today. States he feels his breathing is better today. No c/o CP, palpitations. Generalized weakness. Objective: I&O/Vital Signs Vital Sign - Last 12Hours 11/30/16 12/01/16 12/01/16 12/01/16 22:09 00:00 00:49 02:07 Temp 97.1 Pulse 76 66 Resp 16 22 B/P (MAP) 109/70 Pulse Ox 94 95 96 96 O2 Delivery Nasal Cannula O2 Flow Rate 3.50 40.00 2.00 3.50 12/01/16 12/01/16 12/01/16 12/01/16 04:00 06:53 06:53 07:35 Temp 97.0 97.4 Pulse 72 78 Resp 16 18 B/P (MAP) 102/68 112/64 Pulse Ox 95 94 94 92 O2 Delivery Nasal Cannula Nasal Cannula O2 Flow Rate 2.00 3.50 2.00 Intake and Output 12/01/16 00:00 Intake Total 740 ml Output Total 1300 ml Balance -560 ml Weight (Pounds): 263 Weight (Ounces): 9.0 Weight (Calculated Kilograms): 119.932186 Constitutional: other (recently extubated; somewhat slow to respond, but does appear oriented) Respiratory: crackles (bi-basilar), other (diminished at the bases; increased exp phase) Cardiovascular: irregularly irregular Gastrointestional: No tender, soft, audible bowel sounds Extremities: significant edema (chronic 3-4 (+), brown discoloration of the skin , keratosis of the skin d/t venous stasis) Neurologic/Psychiatric: alert Skin: warm/dry, No rash, other (see above; dressing to LLE D&I (not removed)) Results/Procedures: Labs Laboratory Tests 11/30/16 18:27: Glucometer 166H 12/01/16 01:20: Glucometer 128H 12/01/16 05:18: Glucometer 119H 12/01/16 06:12: White Blood Count 19.5H, Red Blood Count 4.45, Hemoglobin 13.3, Hematocrit 44, Mean Corpuscular Volume 100H, Mean Corpuscular Hemoglobin 30, Mean Corpuscular Hemoglobin Concent 30L, Red Cell Distribution Width 18.0H, Platelet Count 145, Mean Platelet Volume 11.4H, Neutrophils (%) (Auto) 95H, Lymphocytes (%) (Auto) 2L, Monocytes (%) (Auto) 3, Eosinophils (%) (Auto) 0, Basophils (%) (Auto) 0, Neutrophils # (Auto) 18.4H, Lymphocytes # (Auto) 0.4L, Monocytes # (Auto) 0.6, Eosinophils # (Auto) 0.0, Basophils # (Auto) 0.1, Sodium Level 151H, Potassium Level 4.0, Chloride Level 107, Carbon Dioxide Level 33H, Anion Gap 11, Blood Urea Nitrogen 65H, Creatinine 2.44H, Estimat Glomerular Filtration Rate 25, BUN/ Creatinine Ratio 27, Glucose Level 152H, Calcium Level 7.4L, Phosphorus Level 6.3H, Magnesium Level 2.1 Microbiology 11/26/16 MRSA Screen - Final, Complete MRSA not isolated Laboratory Tests 11/30/16 03:40 12/01/16 06:12 A/P: Assessment: Sepsis being managed per medical and pulmonary services Acute respiratory failure secondary to pneumonia Hypernatremia likely in some part d/t intravascular vol depletion Echo of 11/15/16: LVEF 30%, global hypokinesis that is more marked in the posterobasal wall, mild to mod TR & MR & AI, aortic valve sclerosis with mild aortic stenosis (peak grad 20 mmHg and valve area 1.8 sq cm), PASP approx 50-55 mmHg Acute on chronic renal failure. Pre-renal azotemia likely d/t intravascular vol depletion - continues to worsen Sinus node dysfunction with marked bradycardia (causing WARE due to chronotropic incompetence) and documented intermittent complete heart block (ECG of 02/26/15) , treated with dual chamber pacemaker implantation on 03/31/15, functioning normally on interrogation of Apr 2016 Dilated non-ischemic cardiomyopathy. Dilated left ventricle and without evidence of ischemia or any distinct evidence of infarction. Gating could not be carried out due to multiple and frequent premature ventricular contractions. Per MPI of March 2016 Marked chronic venous insufficiency with bilateral leg swelling and stasis dermatitis H/o cellulitis in of his leg which is being followed by Dr. 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 Martinez Physician Assessment Physician Assessment Lungs: diminished air entry at the bases Cor: reg A&R * As documented in our note above * Complex management due to multiple comorbidities and deteriorating renal function * Prognosis guarded * I discussed his case today with Dr Stuart of the Medical Service PATRICK TAYLOR [facility] Dec 01, 2016 08:55 TED MARTINEZ MD FACP FAC [facility] Dec 01, 2016 09:53
[2016-12-01] MEDS ORDERED: ENOXAPARIN 30 MG/0.3 ML (LOVENOX) SYR SC SCH (09:00)
[2016-12-01] MEDS ORDERED: PANTOPRAZOLE 40 MG/10 ML (PROTONIX) VIAL IV SCH (09:00)
[2016-12-01] MEDS ORDERED: methylPREDNISolone 40 MG/ML (Solu-MEDROL) VIAL IV SCH (09:00)
[2016-12-01] MEDS: 1/2 NS IV SOLUTION 1,000 ML IV SCH (10:26)
--- NOTE | 2016-12-01 10:46 | Progress Note-Hospitalist ---
Progress Note HPI/CC on Admission this is an 86-year-old white male who was accepted in transfer from [facility] last night. He was in respiratory distress and suspected sepsis. At a chest x-ray that revealed bilateral lower lobe pneumonia elevated white count and elevated lactic acid. He is transferred to the [facility], [place] where he was admitted through the emergency room. because of hypercapnic respiratory failure the patient was intubated central line was placed and he was stabilized and then transferred to the ICU. This morning his vital signs are stable he is off Levophed. Stolid pressures are running in the 100s. Actinic acid is down below 1. He is on FiO2 of 25 percent with 100 percent O2 saturations. Chest x- ray reveals bilateral pulmonary infiltrates suspicious for either pulmonary edema and possibly left pleural effusion. In some ways it is no worse than the chest x-ray one month ago. He had recently been discharged from this facility after an extended stay for exacerbation of COPD and pneumonia. His ejection fraction is 30 percent. Progress Notes/Assess & Plan Date Seen 12/01/16 Diagonsis/Assessment & Plan Chart Review: WBC 19, Na+ 151, Creat 2.4 Dr. 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 Possible In-pt hospice. Patient Interview: Pt is experiencing SOB, put he is not in pain. Pt has not been able to ambulate. Pt has been receiving breathing treatments. Physical exam stable. Pt admits to having BMs. 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 Scribed by Evelio Amaya under the direct supervision of Dr. Anders. ZAHIDA ANDERS DO Dec 01, 2016 10:46
[2016-12-01 12:00] VITALS: BP 157/69
--- NOTE | 2016-12-01 15:43 | Wound Care Progress Note ---
Subjective Subjective Subjective/Events-last exam The patient is an 86-year-old gentleman with venous insufficiency ulcers of the left leg. He has significant lymphedema and chronic venous changes. Wounds are stable but not improving. The margins and the base of the wounds appeared dusky. Patient's clinical status is marginal. Past medical history: Venous insufficiency, lymphedema, congestive heart failure , chronic renal failure. Review of Systems Pulmonary: Dyspnea Cardiovascular: Orthopnea, No: Chest Pain Severe bilateral lower extremity edema. Objective Exam Last Set of Vital Signs Vital Signs Date Time Temp Pulse Resp B/P (MAP) Pulse Ox O2 Delivery O2 Flow Rate FiO2 12/01/16 12:00 98.1 68 22 157/69 94 Nasal Cannula 2.00 11/30/16 04:00 40 Capillary Refill : Less Than 3 Seconds I&O Intake and Output 12/01/16 00:00 Intake Total 990 ml Output Total 1930 ml Balance -940 ml Intake Oral 790 ml IV Total 100 ml Tube Feeding 100 ml Output Urine Total 1930 ml # Bowel Movements 1 General: Alert, Mild Distress Lungs: Normal Air Movement Skin: Other (left anterior calf2.1 x 1.9 x 0.2 cm, base 100% slough, dusky. Left posterior calf2.5 x 3.8 x 0.3 cm, 100% slough, dusky.) Results Lab Laboratory Tests 11/30/16 18:27: Glucometer 166H 12/01/16 01:20: Glucometer 128H 12/01/16 05:18: Glucometer 119H 12/01/16 06:12: White Blood Count 19.5H, Red Blood Count 4.45, Hemoglobin 13.3, Hematocrit 44, Mean Corpuscular Volume 100H, Mean Corpuscular Hemoglobin 30, Mean Corpuscular Hemoglobin Concent 30L, Red Cell Distribution Width 18.0H, Platelet Count 145, Mean Platelet Volume 11.4H, Neutrophils (%) (Auto) 95H, Lymphocytes (%) (Auto) 2L, Monocytes (%) (Auto) 3, Eosinophils (%) (Auto) 0, Basophils (%) (Auto) 0, Neutrophils # (Auto) 18.4H, Lymphocytes # (Auto) 0.4L, Monocytes # (Auto) 0.6, Eosinophils # (Auto) 0.0, Basophils # (Auto) 0.1, Sodium Level 151H, Potassium Level 4.0, Chloride Level 107, Carbon Dioxide Level 33H, Anion Gap 11, Blood Urea Nitrogen 65H, Creatinine 2.44H, Estimat Glomerular Filtration Rate 25, BUN/ Creatinine Ratio 27, Glucose Level 152H, Calcium Level 7.4L, Phosphorus Level 6.3H, Magnesium Level 2.1 12/01/16 12:08: Glucometer 158H Microbiology 11/26/16 MRSA Screen - Final, Complete MRSA not isolated Assessment/Plan Assessment/Plan Assessment/Plan 1. Venous insufficiency, left leg. 2. Left anterior and left lateral calf ulcers, full-thickness without exposed support structures. 3. Chronic lymphedema and congestive heart failure with compromised wound base perfusion. Plan: The patient's clinical status currently precludes any aggressive elevation or compression to his wound areas. Previous arterial evaluation is demonstrated adequate perfusion. However the appearance of the wounds indicate that his current clinical status may be compromising wound perfusion. At this point I believe continued observation is the safest course. We'll continue silver alginate dressings. AWILDA AZEVEDO MD Dec 01, 2016 15:43
--- NOTE | 2016-12-02 08:46 | Discharge Summary-Hospitalist ---
Diagnosis/Chief Complaint Date of Admission Nov 26, 2016 at 00:30 Date of Discharge Dec 01, 2016 at 15:38 Discharge Date: Dec 01, 2016 Admission Diagnosis 1. septic shock with hypercapnic respiratory failure bilateral pneumonia. Organ systems involved include liver with an elevated total bilirubin, a drop in the platelet count, elevated lactic acid and hypotension. 2. 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 Bilateral pneumonia-possibly facility acquired 4. COPD 5. Chronic venous insufficiency 6. Hypernatremia 7. Thrombocytopenia 8. Hypophosphatemia plan is for short-term ventilation support. Since the patient's oxygenation is at 100 percent with an FiO2 21 percent we'll allow the patient to awaken and to begin weaning. Chest ray will be obtained and repeat blood gas since the last blood gas is deemed to be inaccurate. 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 Possible In-pt hospice. Patient Interview: Pt is experiencing SOB, put he is not in pain. Pt has not been able to ambulate. Pt has been receiving breathing treatments. Physical exam stable. Pt admits to having BMs. 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 Scribed by Evelio Amaya under the direct supervision of Dr. Anders. Reason Hospital Visit/Course this is an 86-year-old white male who was accepted in transfer from [facility] last night. He was in respiratory distress and suspected sepsis. At a chest x-ray that revealed bilateral lower lobe pneumonia elevated white count and elevated lactic acid. He is transferred to the [facility] where he was admitted through the emergency room. because of hypercapnic respiratory failure the patient was intubated central line was placed and he was stabilized and then transferred to the ICU. This morning his vital signs are stable he is off Levophed. Stolid pressures are running in the 100s. Actinic acid is down below 1. He is on FiO2 of 25 percent with 100 percent O2 saturations. Chest x- ray reveals bilateral pulmonary infiltrates suspicious for either pulmonary edema and possibly left pleural effusion. In some ways it is no worse than the chest x-ray one month ago. He had recently been discharged from this facility after an extended stay for exacerbation of COPD and pneumonia. His ejection fraction is 30 percent. Hospital course: Patient had a lengthy and very complicated hospital course that entailed intubation on first admission day then required BiPAP and progressive renal failure was proven challenging due to volume overload and anasarca with pulmonary hypertension and systolic dysfunction of 30 percent ejection fraction along with worsening renal failure if diuretics were used. Aggressive treatment was continued with pulmonary and cardiology leading the course but patient continued to decline regardless of this aggressiveness of the treatment and he was deemed a hospice candidate and was transferred to inpatient hospice due to severe shortness of breath and really unable to be transferred to the correction so the decision was made he met criteria due to the difficulty managing the shortness of breath and if he is still in the hospital on Monday will transfer to the correction on hospice. Discharge Summary Discharge Physical Examination Allergies: Coded Allergies: No Known Drug Allergies (Unverified , 11/18/16) Vitals & I&Os Vital Signs Date Time Temp Pulse Resp B/P (MAP) Pulse Ox O2 Delivery O2 Flow Rate FiO2 12/01/16 12:00 98.1 68 22 157/69 94 Nasal Cannula 2.00 11/30/16 04:00 40 Hospital Course Labs (last 24 hrs) Laboratory Tests 12/01/16 12:08: Glucometer 158H Microbiology 11/26/16 MRSA Screen - Final, Complete MRSA not isolated Discharge Home Medications: Active Scripts Active Prednisone 10 Mg Tab.ds.pk 10 Mg PO DAILY Take 6 tabs(60mg)daily,decrease by 1 tab(10MG)daily. Iprat-Albut 0.5-3(2.5) mg/3 ml (Ipratropium/Albuterol Sulfate) 3 Ml Ampul.neb 3 Ml INH RTTID 30 Days Reported Detrol LA (Tolterodine Tartrate) 4 Mg Cap 4 Mg PO DAILY [Silver Alginate] TP DAILY Furosemide 80 Mg Tablet 80 Mg PO DAILY Klor-Con M10 (Potassium Chloride) 10 Meq Tab.er.prt 10 Meq PO DAILY Aspir 81 (Aspirin) 81 Mg Tablet.dr 81 Mg PO DAILY Instructions to patient/family Please see electonic discharge instructions given to patient. Clinical Quality Measures DVT/VTE Risk/Contraindication: Risk Factor Score Per Nursin RFS Level Per Nursing on Admit: 4+=Very High ZAHIDA ANDERS DO Dec 02, 2016 08:46
== END 2016-12-01 15:38 | disposition hospice, inpatient (51) | DRG 871 ==
LOC: EDUNIT# 23:31 → ER 23:32 → ICU 11-26 00:30 → 4TH 11-30 11:02
PROVIDERS: ADMIT Internal Medicine; ATTEND Internal Medicine
PROC: 5A1945Z Respiratory Ventilation, 24-96 Consecutive Hours (ICD-10-PCS; principal; 2016-11-26)
DX: A41.9 Sepsis, unspecified organism (principal); R65.21 Severe sepsis with septic shock; J44.0 Chronic obstructive pulmonary disease with (acute) lower respiratory infection; J18.9 Pneumonia, unspecified organism; J96.22 Acute and chronic respiratory failure with hypercapnia; J44.1 Chronic obstructive pulmonary disease with (acute) exacerbation; N17.9 Acute kidney failure, unspecified; I13.0 Hypertensive heart and chronic kidney disease with heart failure and stage 1 through stage 4 chronic kidney disease, or unspecified chronic kidney disease; I50.22 Chronic systolic (congestive) heart failure; E87.0 Hyperosmolality and hypernatremia; I42.0 Dilated cardiomyopathy; L97.229 Non-pressure chronic ulcer of left calf with unspecified severity; N18.9 Chronic kidney disease, unspecified; I87.2 Venous insufficiency (chronic) (peripheral); E83.39 Other disorders of phosphorus metabolism; D69.6 Thrombocytopenia, unspecified; I08.3 Combined rheumatic disorders of mitral, aortic and tricuspid valves; N40.0 Benign prostatic hyperplasia without lower urinary tract symptoms; I49.3 Ventricular premature depolarization; I27.2 Other secondary pulmonary hypertension; E66.9 Obesity, unspecified; Z95.0 Presence of cardiac pacemaker; Z68.39 Body mass index [BMI] 39.0-39.9, adult; Z87.891 Personal history of nicotine dependence; G47.33 Obstructive sleep apnea (adult) (pediatric); E78.5 Hyperlipidemia, unspecified
CPT/HCPCS: 31500; 36415; 36556; 51702; 71010; 80048; 80053; 80202; 82805; 82962; 83605; 83735; 83880; 84100; 85007; 85025; 85027; 87070; 87081; 87205; 93005; 94002; 94003; 94640; 94660; 94760; 94799; 96361; 96365; 96367

== ENCOUNTER 2016-12-01 12:36 | Inpatient (IN) | payer MEDICARE, OTHER ==
[~2016-12-01] VITALS: Ht 177.8 cm; Wt 119.5 kg
[2016-12-01] MEDS ORDERED: ONDANSETRON 4 MG/2 ML (SDV) Z0FRAN IVP PRN (13:00)
[2016-12-01] MEDS ORDERED: RT-ALBUTEROL/IPRATROPIUM 3 ML (DUONEB) VIAL INH PRN (13:00)
[2016-12-01] MEDS ORDERED: ARTIFICAL TEARS 0.4 ML UNIT DOSE (REFRESH PLUS) OU PRN (13:00)
[2016-12-01] MEDS ORDERED: LORazepam INJ 2 MG/ML (ATIVAN) VIAL IVP PRN (13:00)
[2016-12-01] MEDS ORDERED: ARTIFICIAL TEARS OINT (LACRI-LUBE) 3.5 GM TUBE OU PRN (13:00)
[2016-12-01] MEDS ORDERED: SALIVA STIMULANT MOUTH SPRAY (BIOTENE) 1.5 OZ MM PRN (13:00)
[2016-12-01] MEDS ORDERED: GLYCOPYRROLATE 0.2 MG/ML (ROBINUL) 2 ML VIAL IV PRN (13:00)
[2016-12-01] MEDS ORDERED: ACETAMINOPHEN 650 MG SUPP (TYLENOL) PR PRN (13:00)
[2016-12-01] MEDS ORDERED: morphine INJ 4 MG/ML 1 ML (VIAL/SYRINGE) IV PRN (13:00)
[2016-12-01] MEDS ORDERED: BISACODYL 10 MG SUPP (DULCOLAX) PR PRN (13:00)
--- NOTE | 2016-12-02 10:18 | History & Physical-Hospitalist ---
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 Patient Interview: Pt awake but largely unresponsive during visit. Physical exam stable. Pt denies having pain currently. Pt would like water. Plan: [place] hospice on Monday if viable option at that time. Scribed by Evelio Amaya under the direct supervision of Dr. Stuart. Exam Limitations: clinical condition Date Seen 12/02/16 Attending Physician Latoya Stuart Floyd R MD Referring Physician Date of Admission Dec 01, 2016 at 15:38 Home Medications & Allergies Home Medications Reviewed patient Home Medication Reconciliation Form Allergies Allergies Coded Allergies No Known Drug Allergies (Unverified11/18/16) Past Hcpdonf-Fxacdi-Krboaj Hx Patient Social History Employed/Student: retired Alcohol Use: Denies Use Recreational Drug Use: No Smoking Status: Former Smoker Former smoker/When Quit: Mar 31, 1987 Type Used: Cigarettes Physical Abuse Screen: No Sexual Abuse: No Recent Foreign Travel: No Contact w/other who traveled: No Recent Hopitalizations: Yes (pneumonia - discharged yesterday) Recent Infectious Disease Expo: No Immunizations Up To Date Date of Pneumonia Vaccine: Mar 14, 2015 Seasonal Allergies Seasonal Allergies: No Surgeries HX Surgeries: Yes (NECK SURGERY, HERNIA SX, ) Surgeries: Orthopedic, Pacemaker Respiratory Hx Respiratory Disorders: No Cardiovascular Hx Cardiovascular Disorders: Yes ([employer] pacemaker) Cardiac Disorders: Cardiomyopathy, Chronic Edema/Swelling, Hypertension, Peripheral Vascular Neurological Hx Neurological Disorders: No Reproductive System Hx Reproductive Disorders: No Genitourinary Hx Genitourinary Disorders: No Genitourinary Disorders: Benign Prostatic Hyperpl, Prostate Problems Gastrointestinal Hx Gastrointestinal Disorders: No Musculoskeletal Hx Musculoskeletal Disorders: Yes (broken neck and broken wrist) Musculoskeletal Disorders: Fractures Endocrine Hx Endocrine Disorders: No HEENT HX ENT Disorders: Yes HEENT Disorders: Cataract Hearing Impairment: Hard of Hearing Cancer Hx Cancer: No Psychosocial Hx Psychiatric Problems: No Integumentary HX Skin/Integumentary Disorder: No (HX OF CELLULITIS) Skin/Integumentary Disorders: Recent Skin Changes Blood Transfusions Hx Blood Disorders: No Family Medical History Family Hx: Arthritis 19 MOTHER Colon cancer G8 BROTHER G8 SISTER Myocardial infarction G8 BROTHER Review of Systems ROS-Unable to Obtain: patient lethargic Constitutional: see HPI Physical Exam Physical Exam Vital Signs Vital Sign - Last 12Hours 12/01/16 12/01/16 18:54 21:55 Pulse Ox 95 O2 Delivery Nasal Cannula O2 Flow Rate 4.00 Capillary Refill : General Appearance: Chronically ill, Obese, Other (end-of-life status very declined) Respiratory: Decreased Breath Sounds (no breath sounds are auscultated) Assessment/Plan Admission Diagnosis Assessment: End-of-life status on inpatient hospice due to chronic and acute respiratory failure and end-stage CHF with pulmonary hypertension Assessment and Plan Plan: Inpatient hospice end-of-life care Clinical Quality Measures DVT/VTE Risk/Contraindication: Risk Factor Score Per Nursin RFS Level Per Nursing on Admit: 4+=Very High LATOYA STUART DO Dec 02, 2016 10:17
--- NOTE | 2016-12-03 06:22 | Discharge Summary-Hospitalist ---
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 Patient Interview: Pt awake but largely unresponsive during visit. Physical exam stable. Pt denies having pain currently. Pt would like water. Plan: [place] hospice on Monday if viable option at that time. Scribed by Evelio Amaya under the direct supervision of Dr. Stuart. 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 Discharge Summary Discharge Physical Examination Allergies: Coded Allergies: No Known Drug Allergies (Unverified , 11/18/16) Vitals & I&Os Vital Signs Date Time Temp Pulse Resp B/P (MAP) Pulse Ox O2 Delivery O2 Flow Rate FiO2 12/02/16 20:30 Nasal Cannula 4.00 12/01/16 18:54 95 Discharge Home Medications: Active Scripts Active Prednisone 10 Mg Tab.ds.pk 10 Mg PO DAILY Take 6 tabs(60mg)daily,decrease by 1 tab(10MG)daily. Iprat-Albut 0.5-3(2.5) mg/3 ml (Ipratropium/Albuterol Sulfate) 3 Ml Ampul.neb 3 Ml INH RTTID 30 Days Reported Detrol LA (Tolterodine Tartrate) 4 Mg Cap 4 Mg PO DAILY [Silver Alginate] TP DAILY Furosemide 80 Mg Tablet 80 Mg PO DAILY Klor-Con M10 (Potassium Chloride) 10 Meq Tab.er.prt 10 Meq PO DAILY Aspir 81 (Aspirin) 81 Mg Tablet.dr 81 Mg PO DAILY Instructions to patient/family Please see electonic discharge instructions given to patient. Clinical Quality Measures DVT/VTE Risk/Contraindication: Risk Factor Score Per Nursin RFS Level Per Nursing on Admit: 4+=Very High ZAHIDA STUART DO Dec 03, 2016 06:22
== END 2016-12-03 07:05 | disposition expired | DRG 189 ==
LOC: 4TH 15:38
PROVIDERS: ADMIT Internal Medicine; ATTEND Internal Medicine
DX: J96.20 Acute and chronic respiratory failure, unspecified whether with hypoxia or hypercapnia (principal); I50.22 Chronic systolic (congestive) heart failure; Z51.5 Encounter for palliative care; I42.9 Cardiomyopathy, unspecified; I27.2 Other secondary pulmonary hypertension; Z66 Do not resuscitate; N40.0 Benign prostatic hyperplasia without lower urinary tract symptoms; H91.90 Unspecified hearing loss, unspecified ear; I10 Essential (primary) hypertension; I73.9 Peripheral vascular disease, unspecified; Z87.891 Personal history of nicotine dependence
CPT/HCPCS: 94760